=== PATIENT | male | born 1965 | race Caucasian/White ===

== ENCOUNTER 2019-09-04 11:26 | Inpatient (IN) | payer BC ==
--- NOTE | 2019-09-04 12:33 | ED ---
Psych HPI - General Chief Complaint: Psychiatric Symptoms Stated Complaint: mental health Time Seen by Provider: 09/04/19 11:45 Source: patient, RN notes reviewed Mode of arrival: ambulatory Limitations: no limitations - History of Present Illness Initial Comments: 54-year-old male presents emergency Department with chief complaint of depression, suicidal ideation. Patient had worsening depression with suicidal ideation today. Patient states that he has a rough homeless at this time. Patient cannot give me details. He denies use of alcohol or drug abuse. Patient denies any homicidal denies any physical complaints. - Related Data Home Medications Medication Instructions Recorded Confirmed Atorvastatin [Lipitor] 40 mg PO DAILY 09/06/16 09/04/19 Metoprolol Tartrate [Lopressor] 25 mg PO QAM 09/06/16 09/04/19 Insulin Degludec [Tresiba 32 units SQ DAILY 09/04/19 09/04/19 Flextouch U-200] Tadalafil [Cialis] 20 mg PO DIRECTED 09/04/19 09/04/19 Allergies Allergy/AdvReac Type Severity Reaction Status Date / Time No Known Allergies Allergy Verified 09/04/19 12:35 Review of Systems ROS Statement: Those systems with pertinent positive or pertinent negative responses have been documented in the HPI. ROS Other: All systems not noted in ROS Statement are negative. Past Medical History Past Medical History: Coronary Artery Disease (CAD), Diabetes Mellitus, Hyperlipidemia History of Any Multi-Drug Resistant Organisms: None Reported Past Surgical History: Appendectomy, Cholecystectomy, Coronary Bypass/CABG, Orthopedic Surgery, Tonsillectomy Additional Past Surgical History / Comment(s): Bilateral knee replaced 1989, CABG 2013. Past Anesthesia/Blood Transfusion Reactions: No Reported Reaction Past Psychological History: No Psychological Hx Reported Smoking Status: Former smoker Past Alcohol Use History: Occasional Past Drug Use History: None Reported General Exam Limitations: no limitations General appearance: alert, in no apparent distress Head exam: Present: atraumatic, normocephalic, normal inspection Eye exam: Present: normal appearance, PERRL, EOMI. Absent: scleral icterus, conjunctival injection, periorbital swelling ENT exam: Present: normal exam, normal oropharynx, mucous membranes moist, TM's normal bilaterally Neck exam: Present: normal inspection, full ROM. Absent: tenderness, meningismus, lymphadenopathy Respiratory exam: Present: normal lung sounds bilaterally. Absent: respiratory distress, wheezes, rales, rhonchi, stridor Cardiovascular Exam: Present: regular rate, normal rhythm, normal heart sounds. Absent: systolic murmur, diastolic murmur, rubs, gallop, clicks Neurological exam: Present: alert, oriented X3 Psychiatric exam: Present: depressed, other (Patient is tearful) Skin exam: Present: warm, dry, intact, normal color. Absent: rash Course Vital Signs 09/04/19 11:32 Temperature 98 F Pulse Rate 91 Respiratory 18 Rate Blood Pressure 195/90 O2 Sat by Pulse 96 Oximetry Medical Decision Making - Medical Decision Making Patient evaluated by EPS, case discussed with psychiatrist recommends inpatient treatment. Disposition Clinical Impression: Depression, Suicidal ideation Disposition: ADMITTED IP TO THIS HOSP Condition: Stable Referrals: Marguerite Figueroa MD [Primary Care Provider] - 1-2 days
[2019-09-04] MEDS ORDERED: MAG HYDROX/AL HYDROX/SIMETH 30 ML CUP PO PRN (13:56)
[2019-09-04] MEDS ORDERED: ACETAMINOPHEN TAB 325 MG TAB PO PRN (13:56)
[2019-09-04] MEDS ORDERED: LORazepam 1 MG TAB PO PRN (13:56)
[2019-09-04] MEDS ORDERED: MAGNESIUM HYDROXIDE 2,400 MG/10 ML CUP PO PRN (13:56)
[2019-09-04] MEDS ORDERED: LORazepam 2 MG/ML INJ IM PRN (13:59)
[2019-09-04 16:00] LABS: Glucose,Whole Blood 161 mg/dL (75-99)
--- NOTE | 2019-09-04 16:26 | CONS ---
CONSULTATION DATE OF SERVICE: 09/04/2019 REASON FOR CONSULTATION: Advice regarding diabetes and other medical issues requested by Psych. HISTORY OF PRESENT ILLNESS: This 54-year-old gentleman with a past medical history of CAD, diabetes, hyperlipidemia, history of CAD, CABG being followed by Dr. Figueroa in the outpatient setting, admitted for psychiatric evaluation. There is no history of fever, rigors or chills. No history of headache, loss of consciousness or seizures. No chest pain. No palpitations. No shortness of breath, hematochezia or melena at this time. PAST MEDICAL HISTORY: History of CAD, diabetes, hyperlipidemia, appendectomy, CAD, CABG, cholecystectomy. MEDICATIONS: Home medications: 1. Cialis 20 mg p.r.n. 2. Lopressor 25 mg q.a.m. 3. Tresiba 32 units subcu daily. 4. Lipitor 40 mg daily. ALLERGIES: None. FAMILY HISTORY: No history of heart disease or strokes in the family. SOCIAL HISTORY: Occasional alcohol intake. Previous history of smoking. REVIEW OF SYSTEMS: ENT: No diminished vision. No diminished hearing. CARDIOVASCULAR as mentioned earlier. RESPIRATORY: No cough, hemoptysis. GI no nausea or vomiting. no dysuria. No hematuria. CENTRAL NERVOUS SYSTEM: No numbness or weakness. ALLERGY/IMMUNOLOGY: No asthma or hayfever. MUSCULOSKELETAL as mentioned earlier. HEMATOLOGY/ONCOLOGY: No history of anemia. ENDOCRINE: No history of diabetes or hypothyroidism. CONSTITUTIONAL: As mentioned earlier. DERMATOLOGY: Negative. RHEUMATOLOGY negative. PSYCHIATRY as mentioned earlier. PHYSICAL EXAMINATION: Alert and oriented times three. Pulse 71, blood pressure 158/86, respiration 18, temperature 97.4, pulse ox 91 percent on room air. HEENT conjunctivae normal. NECK: No JVD. CARDIOVASCULAR: S1, S2 muffled. RESPIRATORY: Breath sounds diminished in the bases. No rhonchi. No crackles. ABDOMEN: Soft, nontender, obese. LEGS: No edema. No swelling. NERVOUS SYSTEM: Higher functions as mentioned earlier. Cranial nerves 2 through 12 grossly intact. Eye movements are full in all directions. No nystagmus. No diplopia. No facial deviation. Jaw opens midline. Otherwise, moves all 4 limbs. No focal motor deficits. Gait is normal. There is no sensory deficit. SKIN: No ulcer, rash or bleeding. JOINTS: No active deforming arthropathy. LYMPHATICS: No lymph nodes palpable in the neck, axillae or groin. LAB: Pending at this time. ASSESSMENT: 1. Depression with suicidal ideation. 2. Diabetes type 2. 3. History of coronary artery disease, coronary artery bypass grafting. 4. Hyperlipidemia. 5. History of cholecystectomy. 6. History appendectomy. 7. History of degenerative joint disease. 8. History of bilateral knee replacements. 9. Remote history of nicotine dependence. 10.Obesity with body mass of 32.5. 11.FULL CODE. RECOMMENDATIONS AND DISCUSSION: In this 54-year-old gentleman who presented with multiple medical issues, at this time, I recommend to continue the current medications. Resume the home medications. Otherwise, monitor blood sugars closely. I would recommend Accu-Cheks a.c. and at bedtime and scale also. We will follow the patient closely. If there are any abnormal labs, I will be happy to review. Otherwise, the patient may be asked to follow up with Dr. Figueroa closely after discharge. Thank you Dr. Teran for letting us participate in the care this patient. MMMARGARETL / IJN: [id number] /
[2019-09-04 17:42] LABS: Glucose,Whole Blood 186 mg/dL (75-99)
[2019-09-04] MEDS: INSULIN ASPART (NovoLOG) 100 UNIT/ML VIAL SQ SCH ×2 (18:02→19:55)
[2019-09-04 19:37] LABS: Glucose,Whole Blood 269 mg/dL (75-99)
[2019-09-05] MEDS ORDERED: INSULIN DETEMIR (LEVEMIR) 100 UNIT/ML SYR SQ SCH (07:00)
[2019-09-05 07:42] LABS: Glucose,Whole Blood 181 mg/dL (75-99)
[2019-09-05] MEDS: INSULIN ASPART (NovoLOG) 100 UNIT/ML VIAL SQ SCH ×4 (07:49→21:16)
[2019-09-05] MEDS: METOPROLOL TARTRATE 25 MG TAB PO SCH (08:13)
[2019-09-05] MEDS: ATORVASTATIN 40 MG TAB PO SCH (08:13)
[2019-09-05 12:28] LABS: ALT 41 U/L (21-72); AST 21 U/L (17-59); African American GFR (CKD) >90 (>60 ml/min/1.73 sqM); Albumin 4.3 g/dL (3.5-5.0); Alkaline Phosphatase 49 U/L (38-126); Anion Gap 6 mmol/L; Blood Urea Nitrogen 20 mg/dL (9-20); Calcium 10.1 mg/dL (8.4-10.2); Carbon Dioxide 30 mmol/L (22-30); Chloride 102 mmol/L (98-107); Cholesterol 268 mg/dL (<200); Glucose 190 mg/dL (74-99); HDL Cholesterol 47 mg/dL (40-60); LDL Cholesterol,Calculated 163 mg/dL (0-99); Non-African American GFR(CKD) 78 (>60 ml/min/1.73 sqM); Potassium 4.4 mmol/L (3.5-5.1); Sodium 138 mmol/L (137-145); Total Bilirubin 0.8 mg/dL (0.2-1.3); Triglycerides 288 mg/dL (<150)
[2019-09-05 12:40] LABS: Basophils % (A) 1 %; Eosinophils # (A) 0.2 k/uL (0-0.7); Eosinophils % (A) 3 %; HCT 41.9 % (39.0-53.0); HGB 14.6 gm/dL (13.0-17.5); Lymphocytes # (A) 2.3 k/uL (1.0-4.8); Lymphocytes % (A) 32 %; MCH 30.7 pg (25.0-35.0); MCHC 34.9 g/dL (31.0-37.0); MCV 87.9 fL (80.0-100.0); Mean Platelet Volume 5.9; Monocytes # (A) 0.3 k/uL (0-1.0); Monocytes % (A) 5 %; Neutrophils # (A) 4.1 k/uL (1.3-7.7); Neutrophils % (A) 58 %; Platelet Count 257 k/uL (150-450); RBC 4.77 m/uL (4.30-5.90); WBC 7.1 k/uL (3.8-10.6)
--- NOTE | 2019-09-05 12:50 | P.HP ---
Psychiatric H&P - . H&P Date: 09/05/19 History & Physical: IDENTIFYING DATA: The patient is a 54-year-old. male who presented to the psychiatric unit voluntarily with complaints of increasing depression and suicidal ideation. HISTORY OF PRESENT ILLNESS: The patient presented to the emergency room with complaints of depression and suicidal ideation. He talked about experiencing his father telling him that he needs to "get help". He related that he has felt depressed for several months since the of his father in April but the depression is worsened since he has been laid off from work. His employment status and resultant financial problems have caused more conflict with his . He describes several symptoms of depression including feelings of hopelessness with thoughts of and dying. However, he denied suicide intent or plan. He described himself as a "light sleeper" and alleged that he has not noticed a major change in her sleep recently. He has more difficulty enjoying himself and feels less energetic than usual. He denied persistent feelings of guilt. Prior to presents emergency room he alleged that he "heard" his father telling him that he needs to get treatment. He talked about experiencing his father voice "in my mind" talking to him. He denied that this was an auditory experience consistent with a true auditory hallucination. The social group worker spoke with his . On Wednesday prior to admission she learned that he was having an extramarital affair. Apparently this affair has been ongoing for about one year. She confronted him and they had a major argument. He complained of feelings of anxiety but denied that the anxiety has been persistent and disabling. He denied experiencing panic attack, perceptions or compulsions. He denied specific psychotic experiences as visual or tactile hallucinations, ideas reference, thought insertion, etc. He drinks "occasionally" and denied that friends or family have complained him about his alcohol use. He denied use of drugs to get high, help him sleep or changes mood. PAST PSYCHIATRIC HISTORY: He denied prior mental health or psychiatric treatment. This is his first psychiatric hospitalization. PAST MEDICAL HISTORY: Medical consult appreciated. He has a history of coronary artery disease, diabetes mellitus, hyperlipidemia and is status post's coronary artery bypass surgery. He is prescribed Lopressor, Tresiba and Lipitor for the treatment of these conditions. ALLERGIES: NO KNOWN DRUG ALLERGIES. SUBSTANCE USE HISTORY: 90 history of alcohol or drug use problems or treatment. FAMILY PSYCHIATRIC/SUBSTANCE USE HISTORY: He is unaware of family history of m ental health problems. LEGAL HISTORY: He denied history of legal problems. SOCIAL HISTORY: His born and raised in intact family. He graduated from high school. 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 He is been 3 times. He is to his current for 20 years. He has 3 biological sons and 2 stepsons. 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 MENTAL STATUS EXAM: He presented as a casually groomed middle-aged male who was pleasant on approach. He made eye contact and attended to interview. He had no distinguishing features or prominent physical abnormalities. He had a depressed facial expression. He was alert and oriented to person, place and time. He showed psychomotor retardation but no abnormal movements. His speech was slow with decreased rate and rhythm. He had no articulation difficulties. Affect was depressed and not reactive. He described wishes but denied active suicidal ideation, intent or plan. He denied homicidal ideation. He expressed feelings of hopelessness, helplessness and worthlessness. He did not express ideas reference, paranoid ideation, magical ideation or delusional thoughts. His thinking was abstract and associations were coherent, logical and goal directed. He did not express clang associations, perseverations, neologisms or blocking. He described hearing a "voice" his father but his description was not consistent ritual auditory hallucinations. Global impression of intellect is average. He is aware of his illness and need for mental health treatment. STRENGTHS: Relatively good health, stable employment, stable income, stable housing. WEAKNESSES: Marital problems. IMPRESSION: He is a 54-year-old male who presents with signs and symptoms of depressive disorder but has developed since deficits father in April and worsening recently related to marital difficulties. He attributes to marital difficulties to financial problems but social group worker discovered that he has been unfaithful in the marriage. He described hearing the voice of his father but his description did not appear consistent with a true auditory hallucination. He should best be treated inpatient basis with combination of antidepressant medication and multimodal therapy. He will benefit from referral for outpatient treatment that may include marital counseling.. PRINCIPLE DIAGNOSIS: Major depressive disorder single episode severe without psychotic features, marital problems, financial problems RECOMMENDATION: Add to the psychiatric unit. Safety precautions. granite worker to work with family to remove firearms from the household. Begin Zoloft 50 mg daily and titrated according to clinical response and tolerance. Encourage participation in therapeutic groups and activities. Evaluate clinical status response to treatment daily basis. Allergies Allergy/AdvReac Type Severity Reaction Status Date / Time No Known Allergies Allergy Verified 09/04/19 15:35 Vital Signs Temp 97.8 F 09/05/19 06:57 Pulse 75 09/05/19 08:00 Resp 16 09/05/19 08:00 BP 81/51 09/05/19 08:00 Pulse Ox 96 09/05/19 06:57 Intake & Output 09/04/19 09/05/19 09/05/19 18:59 06:59 18:59 Weight 99.79 kg Laboratory Last Values POC Glucose (mg/dL) 181 mg/dL (75-99) H 09/05/19 07:32 POC Glu Stabilizer Operator ID Ramona Portillo 09/05/19 07:32 09/05/19 10:38 09/05/19 12:47
[2019-09-05 12:54] LABS: Glucose,Whole Blood 189 mg/dL (75-99)
[2019-09-05] MEDS: SERTRALINE 50 MG TAB PO SCH (13:28)
[2019-09-05 17:40] LABS: Glucose,Whole Blood 183 mg/dL (75-99)
[2019-09-05 18:52] LABS: Hemoglobin A1C 8.7 % (4.0-6.0)
[2019-09-05 19:56] LABS: Glucose,Whole Blood 271 mg/dL (75-99)
[2019-09-06 07:55] LABS: Glucose,Whole Blood 181 mg/dL (75-99)
[2019-09-06] MEDS: ATORVASTATIN 40 MG TAB PO SCH (08:11)
[2019-09-06] MEDS: INSULIN ASPART (NovoLOG) 100 UNIT/ML VIAL SQ SCH ×4 (08:11→20:28)
[2019-09-06] MEDS: INSULIN DETEMIR (LEVEMIR) 100 UNIT/ML SYR SQ SCH (08:11)
[2019-09-06] MEDS: METOPROLOL TARTRATE 25 MG TAB PO SCH (08:12)
[2019-09-06] MEDS: SERTRALINE 50 MG TAB PO SCH (08:12)
[2019-09-06 12:49] LABS: Glucose,Whole Blood 190 mg/dL (75-99)
--- NOTE | 2019-09-06 12:59 | P.PN ---
Progress Note - Text Progress Note Date: 09/06/19 Clinical Problems: Major depressive disorder single episode severe without psychotic features, marital problems, financial problems Interim history: I reviewed the medical record, interviewed the patient and discuss his treatment and treatment plan during team meeting. He reported feeling less depressed and denied experiencing thoughts of suicide or wishes. He again talked about "bottling up" his feelings and needing to have the opportunity to talk about his concerns. He feels that he has this opportunity during our therapeutic groups and activities. I broached the complaint that his reported to the social work therapist. He denied that he was having an extramarital affair. He alleged that his misinterpreted his actions. He admitted to "text in" another woman but denied that they are involved sexually. He requested discharge before the holidays. We discussed aftercare and he agreed to referral for individual and possibly conjoined therapy. He started Zoloft but denied side effects to the initial doses. Mental status exam: He presented as a casually groomed and casually dressed middle-aged male with male pattern balding. He made eye contact and attended to the interview. He showed slight psychomotor retardation but no abnormal movements. His speech was spontaneous with decreased rate and volume. His affect was depressed but reactive. He denied suicidal ideation, wishes and homicidal ideation. He denied currently feeling hopeless and helpless or worthless. He did not express paranoid ideation, magical ideation or delusional thoughts. His thinking was abstract and associations were coherent, logical and goal directed. He denied hallucinations and did not appear to be responding to internal stimuli. Assessment: He continued have signs or symptoms depressive disorder but is no longer expressing suicidal thoughts. Plan: Continue inpatient hospitalization. Continue suicide precautions. dry drug worker to arrange a family meeting prior to discharge. Continue Zoloft 50 mg per day and titrated according to clinical response and tolerance. Plan for discharge on 09/07/2019. dry drug worker to coordinate aftercare services including individual therapy and possible conjoint and/or marital therapy. Encouraged continued participation in therapeutic groups and activities. Evaluate clinical status response to treatment daily basis.
[2019-09-06 17:08] LABS: Glucose,Whole Blood 238 mg/dL (75-99)
[2019-09-06 20:27] LABS: Glucose,Whole Blood 254 mg/dL (75-99)
[2019-09-07 07:09] VITALS: BP 130/69; PULSE 69; RESP 14; TEMP 97.9
[2019-09-07 07:35] LABS: Glucose,Whole Blood 214 mg/dL (75-99)
[2019-09-07] MEDS: SERTRALINE 50 MG TAB PO SCH (07:56)
[2019-09-07] MEDS: INSULIN ASPART (NovoLOG) 100 UNIT/ML VIAL SQ SCH (07:56)
[2019-09-07] MEDS: METOPROLOL TARTRATE 25 MG TAB PO SCH (07:56)
[2019-09-07] MEDS: INSULIN DETEMIR (LEVEMIR) 100 UNIT/ML SYR SQ SCH (07:56)
[2019-09-07] MEDS: ATORVASTATIN 40 MG TAB PO SCH (07:56)
--- NOTE | 2019-09-07 08:41 | P.DS ---
Providers Date of admission: 09/04/19 13:47 Attending physician: Samson Teran MD Consults: 09/04/19 13:56 Consult Physician Routine Consulting Provider: Kristopher Beatty Consult Reason/Comments: H&P and medical Do you want consulting provider notified?: Yes Primary care physician: Marguerite Figueroa - Discharge Diagnosis(es) (1) Marital problems Current Visit: Yes Status: Acute Priority: High (2) Financial problems Current Visit: Yes Status: Acute Priority: Medium (3) Depression Current Visit: Yes Status: Chronic Priority: Low (4) Suicidal ideation Current Visit: Yes Status: Resolved Priority: Low Hospital Course: The patient is a 54-year-old. male who presented to the psychiatric unit voluntarily with complaints of increasing depression and suicidal ideation. The patient presented to the emergency room with complaints of depression and suicidal ideation. He talked about experiencing his father telling him that he needs to "get help". He related that he has felt depressed for several months since the of his father in April but the depression is worsened since he has been laid off from work. His employment status and resultant financial problems have caused more conflict with his . He describes several symptoms of depression including feelings of hopelessness with thoughts of and dying. However, he denied suicide intent or plan. He described himself as a "light sleeper" and alleged that he has not noticed a major change in her sleep recently. He has more difficulty enjoying himself and feels less energetic than usual. He denied persistent feelings of guilt. Prior to presents emergency room he alleged that he "heard" his father telling him that he needs to get treatment. He talked about experiencing his father voice "in my mind" talking to him. He denied that this was an auditory experience consistent with a true auditory hallucination. The drug abuse social worker spoke with his . On Wednesday prior to admission she learned that he was having an extramarital affair. Apparently this affair has been ongoing for about one year. She confronted him and they had a major argument. He complained of feelings of anxiety but denied that the anxiety has been persistent and disabling. He denied experiencing panic attack, perceptions or compulsions. He denied specific psychotic experiences as visual or tactile hallucinations, ideas reference, thought insertion, etc. He drinks "occasionally" and denied that friends or family have complained him about his alcohol use. He denied use of drugs to get high, help him sleep or changes mood. We admitted him to the psychiatric unit under the care of this sql report writer. We provided a biopsychosocial assessment. The eligibility consultant movers completed initial physical exam and medical history. We continued his outpatient medications, Lipitor, Levemir and Lopressor for the treatment of his chronic conditions of hypercholesterol, diabetes and hypertension. We started sertraline 50 mg daily for the treatment of depression. He participated actively in therapeutic groups and activities. He posed no management problem and is had no episodes of behavioral dyscontrol. He denied suicidal thoughts, ideation or intent throughout this brief hospitalization. He denied his 's allegation that he was involved in extramarital affair. He alleged that his misinterpreted the text conversation with a female coworker and doctor's appointment where he obtained a prescription for Cialis. We discussed treatment options and he agreed to referral for individual and/or marital therapy. At time of discharge he presented as a casually groomed middle-aged male with pattern balding. He had no distinction features are prominent physical abnormalities. He had a blunted but bright facial expression. He showed no abnormality of psychomotor activity. His speech was spontaneous with slight decrease in volume and rate. His affect was depressed but stable and appropriate. He denied suicidal ideation, wishes or homicidal ideation. He denied feeling hopeless, helpless or worthless. He denied ideas reference, paranoid ideation or delusions. His thinking was abstract and associations were coherent and logical. Patient Condition at Discharge: Stable Plan - Discharge Summary Discharge Rx Participant: No New Discharge Prescriptions: New Sertraline [Zoloft] 50 mg PO DAILY 30 Days #30 tab Continue Atorvastatin [Lipitor] 40 mg PO DAILY Metoprolol Tartrate [Lopressor] 25 mg PO QAM Tadalafil [Cialis] 20 mg PO DIRECTED Insulin Degludec [Tresiba Flextouch U-200] 32 units SQ DAILY Discharge Medication List Atorvastatin [Lipitor] 40 mg PO DAILY 09/06/16 [History] Metoprolol Tartrate [Lopressor] 25 mg PO QAM 09/06/16 [History] Insulin Degludec [Tresiba Flextouch U-200] 32 units SQ DAILY 09/04/19 [History] Tadalafil [Cialis] 20 mg PO DIRECTED 09/04/19 [History] Sertraline [Zoloft] 50 mg PO DAILY 30 Days #30 tab 09/07/19 [Rx] Follow up Appointment(s)/Referral(s): intake,intake [Other] - 1 Week Marguerite Figueroa MD [Primary Care Provider] - 1-2 days Discharge Disposition: HOME SELF-CARE
== END 2019-09-07 10:30 | disposition home or self-care (01) | DRG 885 ==
LOC: EC 11:26 → 3MHU 13:47
PROVIDERS: ADMIT Psychiatry & Neurology Psychiatry; ATTEND Psychiatry & Neurology Psychiatry
DX: F32.2 Major depressive disorder, single episode, severe without psychotic features (principal); R45.851 Suicidal ideations; E11.9 Type 2 diabetes mellitus without complications; I25.10 Atherosclerotic heart disease of native coronary artery without angina pectoris; E78.00 Pure hypercholesterolemia, unspecified; E78.5 Hyperlipidemia, unspecified; I10 Essential (primary) hypertension; E66.9 Obesity, unspecified; Z68.32 Body mass index [BMI] 32.0-32.9, adult; Z79.4 Long term (current) use of insulin; Z79.899 Other long term (current) drug therapy; Z90.49 Acquired absence of other specified parts of digestive tract; Z63.0 Problems in relationship with spouse or partner; Z59.0 Homelessness; Z95.1 Presence of aortocoronary bypass graft; Z98.890 Other specified postprocedural states; Z96.653 Presence of artificial knee joint, bilateral; Z87.891 Personal history of nicotine dependence; Z87.39 Personal history of other diseases of the musculoskeletal system and connective tissue
CPT/HCPCS: 80053; 80061; 82075; 83036; 84443; 85025; 99285

== ENCOUNTER 2019-10-08 19:20 | Emergency (ER) | payer BC ==
[2019-10-08 19:30] VITALS: RESP 18
[2019-10-08 19:37] LABS: Glucose,Whole Blood 307 mg/dL (75-99)
[2019-10-08] MEDS ORDERED: SODIUM CHLORIDE 0.9% 1,000 ML IV STA ×2 (19:42→21:15)
[2019-10-08 20:01] LABS: INR 0.9 (<1.2); Partial Thromboplastin Time 23.4 sec (22.0-30.0); Prothrombin Time 9.5 sec (9.0-12.0)
[2019-10-08 20:02] LABS: Basophils # (A) 0.1 k/uL (0-0.2); Basophils % (A) 1 %; Eosinophils # (A) 0.2 k/uL (0-0.7); Eosinophils % (A) 3 %; HCT 40.1 % (39.0-53.0); HGB 14.3 gm/dL (13.0-17.5); Lymphocytes # (A) 2.3 k/uL (1.0-4.8); Lymphocytes % (A) 31 %; MCH 30.8 pg (25.0-35.0); MCHC 35.6 g/dL (31.0-37.0); MCV 86.5 fL (80.0-100.0); Mean Platelet Volume 7.1; Monocytes # (A) 0.4 k/uL (0-1.0); Monocytes % (A) 5 %; Neutrophils # (A) 4.3 k/uL (1.3-7.7); Neutrophils % (A) 58 %; Platelet Count 249 k/uL (150-450); RBC 4.63 m/uL (4.30-5.90); RDW 12.9 % (11.5-15.5); WBC 7.3 k/uL (3.8-10.6)
--- NOTE | 2019-10-08 20:05 | ED ---
Neuro HPI - General Chief Complaint: Neuro Symptoms/Deficit Stated Complaint: TIA Time Seen by Provider: 10/08/19 19:42 Source: patient, EMS, RN notes reviewed, old records reviewed Mode of arrival: EMS Limitations: no limitations - History of Present Illness Is the patient presenting with stroke symptoms?: No -: minutes(s) Initial Comments: This is a 54-year-old male here with history of CAD CABG coming in for neurologic type symptoms tonight. Patient states prior to arrival. Difficulty with word finding, difficulty with speech. No pressure stroke. Patient currently with no anticoagulation or trauma. No headaches. Patient taken all medications as prescribed menstrual alcohol abuse. Does admit to some persistent tingling in his fingers although he states his speech and thought processes are back to normal. Location: speech, altered History of same: No Place: home Severity: mild Quality: improving Improves With: time Worsens With: none On Anticoagulants: No Context: sudden onset Associated Symptoms: confusion Treatments Prior to Arrival: none - Related Data Home Medications: Home Medications Medication Instructions Recorded Confirmed Atorvastatin [Lipitor] 40 mg PO DAILY 09/06/16 09/04/19 Metoprolol Tartrate [Lopressor] 25 mg PO QAM 09/06/16 09/04/19 Insulin Degludec [Tresiba 32 units SQ DAILY 09/04/19 09/04/19 Flextouch U-200] Tadalafil [Cialis] 20 mg PO DIRECTED 09/04/19 09/04/19 Previous Rx's Medication Instructions Recorded Sertraline [Zoloft] 50 mg PO DAILY 30 Days #30 tab 09/07/19 Allergies/Adverse Reactions: Allergies Allergy/AdvReac Type Severity Reaction Status Date / Time No Known Allergies Allergy Verified 09/04/19 15:35 Review of Systems ROS Statement: Those systems with pertinent positive or pertinent negative responses have been documented in the HPI. ROS Other: All systems not noted in ROS Statement are negative. General Exam - General Exam Comments Initial Comments: NIH of 0, no slurred speech, no expressive aphasia Limitations: no limitations General appearance: alert, in no apparent distress Head exam: Present: atraumatic, normocephalic, normal inspection Eye exam: Present: normal appearance, PERRL, EOMI. Absent: scleral icterus, conjunctival injection, periorbital swelling ENT exam: Present: normal exam, mucous membranes moist Neck exam: Present: normal inspection. Absent: tenderness, meningismus, lymphadenopathy Respiratory exam: Present: normal lung sounds bilaterally. Absent: respiratory distress, wheezes, rales, rhonchi, stridor Cardiovascular Exam: Present: regular rate, normal rhythm, normal heart sounds. Absent: systolic murmur, diastolic murmur, rubs, gallop, clicks GI/Abdominal exam: Present: soft, normal bowel sounds. Absent: distended, tenderness, guarding, rebound, rigid Extremities exam: Present: normal inspection, full ROM, normal capillary refill. Absent: tenderness, pedal edema, joint swelling, calf tenderness Back exam: Present: normal inspection Neurological exam: Present: alert, oriented X3, CN II-XII intact Psychiatric exam: Present: normal affect, normal mood Skin exam: Present: warm, dry, intact, normal color. Absent: rash Stroke MDM - Lab Data Result diagrams: 10/08/19 19:36 10/08/19 19:36 Lab Results 10/08/19 10/08/19 10/08/19 Range/Units 19:36 19:36 19:36 WBC 7.3 (3.8-10.6) k/uL RBC 4.63 (4.30-5.90) m/uL Hgb 14.3 (13.0-17.5) gm/dL Hct 40.1 (39.0-53.0) % MCV 86.5 (80.0-100.0) fL MCH 30.8 (25.0-35.0) pg MCHC 35.6 (31.0-37.0) g/dL RDW 12.9 (11.5-15.5) % Plt Count 249 (150-450) k/uL Neutrophils % 58 % Lymphocytes % 31 % Monocytes % 5 % Eosinophils % 3 % Basophils % 1 % Neutrophils # 4.3 (1.3-7.7) k/uL Lymphocytes # 2.3 (1.0-4.8) k/uL Monocytes # 0.4 (0-1.0) k/uL Eosinophils # 0.2 (0-0.7) k/uL Basophils # 0.1 (0-0.2) k/uL PT (9.0-12.0) sec INR (<1.2) APTT (22.0-30.0) sec Sodium 136 L (137-145) mmol/L Potassium 4.5 (3.5-5.1) mmol/L Chloride 103 (98-107) mmol/L Carbon Dioxide 26 (22-30) mmol/L Anion Gap 7 mmol/L BUN 28 H (9-20) mg/dL Creatinine 1.09 (0.66-1.25) mg/dL Est GFR (CKD-EPI)AfAm 87 (>60 ml/min/1.73 sqM) Est GFR (CKD-EPI)NonAf 76 (>60 ml/min/1.73 sqM) Glucose 287 H (74-99) mg/dL POC Glucose (mg/dL) 307 H (75-99) mg/dL POC Glu Plastic Tile Setter Judy Cruz Calcium 9.3 (8.4-10.2) mg/dL Total Bilirubin 0.5 (0.2-1.3) mg/dL AST 21 (17-59) U/L ALT 26 (4-49) U/L Alkaline Phosphatase 69 (38-126) U/L Creatine Kinase 66 (55-170) U/L Troponin I (0.000-0.034) ng/mL Total Protein 6.8 (6.3-8.2) g/dL Albumin 4.0 (3.5-5.0) g/dL 10/08/19 10/08/19 Range/Units 19:36 19:36 WBC (3.8-10.6) k/uL RBC (4.30-5.90) m/uL Hgb (13.0-17.5) gm/dL Hct (39.0-53.0) % MCV (80.0-100.0) fL MCH (25.0-35.0) pg MCHC (31.0-37.0) g/dL RDW (11.5-15.5) % Plt Count (150-450) k/uL Neutrophils % % Lymphocytes % % Monocytes % % Eosinophils % % Basophils % % Neutrophils # (1.3-7.7) k/uL Lymphocytes # (1.0-4.8) k/uL Monocytes # (0-1.0) k/uL Eosinophils # (0-0.7) k/uL Basophils # (0-0.2) k/uL PT 9.5 (9.0-12.0) sec INR 0.9 (<1.2) APTT 23.4 (22.0-30.0) sec Sodium (137-145) mmol/L Potassium (3.5-5.1) mmol/L Chloride (98-107) mmol/L Carbon Dioxide (22-30) mmol/L Anion Gap mmol/L BUN (9-20) mg/dL Creatinine (0.66-1.25) mg/dL Est GFR (CKD-EPI)AfAm (>60 ml/min/1.73 sqM) Est GFR (CKD-EPI)NonAf (>60 ml/min/1.73 sqM) Glucose (74-99) mg/dL POC Glucose (mg/dL) (75-99) mg/dL POC Glu Plastic Tile Setter ID Calcium (8.4-10.2) mg/dL Total Bilirubin (0.2-1.3) mg/dL AST (17-59) U/L ALT (4-49) U/L Alkaline Phosphatase (38-126) U/L Creatine Kinase (55-170) U/L Troponin I <0.012 (0.000-0.034) ng/mL Total Protein (6.3-8.2) g/dL Albumin (3.5-5.0) g/dL - NIH Stroke Scale 1a. Level of Consciousness: (0) alert 1b. LOC Questions: (0) answers correctly 1c. LOC Commands: (0) performs tasks correctly 2. Best Gaze: (0) normal 3. Visual: (0) no visual loss 4. Facial Palsy: (0) normal symmetrical movement 5a. Motor Arm Left: (0) no drift 5b. Motor Arm Right: (0) no drift 6a. Motor Leg Left: (0) no drift 6b. Motor Leg Right: (0) no drift 7. Limb Ataxia: (0) absent 8. Sensory: (0) normal 9. Best Language: (0) no aphasia 10. Dysarthria: (0) normal 11. Extinction/Inattention: (0) no abnormality - Thrombolytic Inclusion/Exclusion Thrombolytic Inclusion Criteria: NIH Stroke Scale Deficit (0) Thrombolytic Contraindications: Rapidly Improving s/s - Medical Decision Making 54 male date ER with significant history of CAD coming in with TIA symptoms have currently resolved. Please undulate that therapy to follow up with vascular surgery, neurology, as all drywall professional instructed. Patient does not want to stay in the hospital at this time passivity could see him swallowing diffi culties consult from a cooker basis he'll return if neurologic symptoms return and patient would like discharged - Radiology Data Radiology results: report reviewed (CT brain states he had neck does show significant occlusion left internal carotid as well as 75% of right internal carotid), image reviewed - EKG Data -: EKG Interpreted by Me (EKG shows sinus rhythm rate of 71, NE 164, QRS 90, QTC 404) Past Medical History Past Medical History: Coronary Artery Disease (CAD), Diabetes Mellitus, Hyperlipidemia History of Any Multi-Drug Resistant Organisms: None Reported Past Surgical History: Appendectomy, Cholecystectomy, Coronary Bypass/CABG, Orthopedic Surgery, Tonsillectomy Additional Past Surgical History / Comment(s): Bilateral knee replaced 1989, CABG 2013. Past Anesthesia/Blood Transfusion Reactions: No Reported Reaction Past Psychological History: No Psychological Hx Reported Smoking Status: Former smoker Past Alcohol Use History: Occasional Past Drug Use History: None Reported Course Vital Signs 10/08/19 19:27 Temperature 98.1 F Pulse Rate 76 Respiratory 18 Rate Blood Pressure 134/77 O2 Sat by Pulse 97 Oximetry - Reevaluation(s) Reevaluation #1: 10/08/19 21:19 medical records reviewed Reevaluation #2: 10/08/19 21:20 Patient is without complaint without neurological findings Reevaluation #3: 10/08/19 21:20 Spoke with neuro interventional on-call Dr. Lei suggests dual antiplatelets. Reevaluation #4: 10/08/19 21:20 The patient at length follow-up with vascular surgery and patients drywall professional Disposition Clinical Impression: Transient cerebral ischemia Disposition: HOME SELF-CARE Condition: Undetermined Instructions (If sedation given, give patient instructions): Transient Ischemic Attack (ED) Is patient prescribed a controlled substance at d/c from ED?: No Referrals: Marguerite Figueroa MD [Primary Care Provider] - 1-2 days
[2019-10-08 20:11] LABS: Calcium 9.3 mg/dL (8.4-10.2); Potassium 4.5 mmol/L (3.5-5.1); Total Bilirubin 0.5 mg/dL (0.2-1.3); Total Protein 6.8 g/dL (6.3-8.2)
--- NOTE | 2019-10-08 20:15 | CT ---
EXAMINATION TYPE: CT brain wo con for TPA DATE OF EXAM: 10/08/2019 COMPARISON: None HISTORY: Slurred speech. CT DLP: 1130 mGycm Automated exposure control for dose reduction was used. There is mild cerebral atrophy. There is no mass effect nor midline shift. There is no sign of intrac ranial hemorrhage. Calvarium is intact. IMPRESSION: No acute intracranial abnormality.
--- NOTE | 2019-10-08 20:44 | CT ---
EXAMINATION TYPE: CT angio head neck DATE OF EXAM: 10/08/2019 COMPARISON: HISTORY: CT DLP: mGycm Automated exposure control for dose reduction was used. CONTRAST: Performed , patient injected with mL of . Contrast was Isovue 65 mL. There are 3-D post processed images. There is normal branching pattern of the great vessels on the aortic arch. There is bilateral arteria l flow in the subclavian arteries. There is arterial flow in the common internal and external carotid arteries bilaterally. There is subtotal occlusion of the origin of the left internal carotid artery. Stenosis is estimated more than 90%. There is extensive irregular plaque at the right carotid artery bifurcation and estimated stenosis 75%. There is arterial flow in both vertebral arteries which are fairly symmetric. I see no evidence of ve rtebral artery stenosis. There is arterial flow in the vertebrobasilar artery system. There is arterial flow in the anterior middle and posterior cerebral arteries. There is normal contra st opacification of the venous sinuses. There is no mass effect. There is no evidence of intracranial aneurysm or neovascularity. I see no evidence of intracranial arterial stenosis. The remainder of ex am is unremarkable. IMPRESSION: Subtotal occlusion of the origin of the left internal carotid artery. Approximate 75% stenosis at the origin of the right internal carotid artery. Extensive plaque formation at the carotid artery bifurc ations.
[2019-10-08] MEDS ORDERED: CLOPIDOGREL 75 MG TAB PO STA (21:17)
[2019-10-08] MEDS ORDERED: ASPIRIN 81 MG PO STA (21:17)
[2019-10-08 22:02] VITALS: BP 116/67; PULSE 72; TEMP 97.9
== END 2019-10-08 22:02 | disposition home or self-care (01) ==
LOC: EC 19:20
DX: G45.9 Transient cerebral ischemic attack, unspecified (principal); I25.10 Atherosclerotic heart disease of native coronary artery without angina pectoris; E11.9 Type 2 diabetes mellitus without complications; E78.5 Hyperlipidemia, unspecified; Z87.891 Personal history of nicotine dependence; Z79.4 Long term (current) use of insulin; Z79.899 Other long term (current) drug therapy; Z95.1 Presence of aortocoronary bypass graft; Z53.8 Procedure and treatment not carried out for other reasons
CPT/HCPCS: 99285; 96360; 36415; 93005; 80053; 82550; 84484; 85025; 85610; 85730; 70496; 70450; 70498; Q9967

== ENCOUNTER → 2019-10-30 | Outpatient (CLI) | payer BC ==
[2019-10-30 11:27] LABS: African American GFR (CKD) >90 (>60 ml/min/1.73 sqM); Blood Urea Nitrogen 23 mg/dL (9-20); Non-African American GFR(CKD) 79 (>60 ml/min/1.73 sqM); Potassium 4.6 mmol/L (3.5-5.1)
[2019-10-30 12:25] LABS: HCT 41.1 % (39.0-53.0); HGB 14.3 gm/dL (13.0-17.5); MCH 30.9 pg (25.0-35.0); MCHC 34.7 g/dL (31.0-37.0); Mean Platelet Volume 7.5; Platelet Count 220 k/uL (150-450); RBC 4.62 m/uL (4.30-5.90); RDW 13.5 % (11.5-15.5); WBC 6.3 k/uL (3.8-10.6)
== END | disposition home or self-care (01) ==
LOC: LABPAT 10:53
PROVIDERS: ATTEND Surgery
DX: Z01.812 Encounter for preprocedural laboratory examination (principal); I65.23 Occlusion and stenosis of bilateral carotid arteries
CPT/HCPCS: 82565; 84132; 84520; 85027; 86850; 86900; 86901

== ENCOUNTER 2019-10-31 05:53 | Inpatient (IN) | payer BC ==
[2019-10-27 17:23] VITALS: BMI 32.0
[~2019-10-31 05:53] MED LIST: DEXAMETHASONE SOD PHOSPHATE 10 MG/ML 1 ML VIAL IV ONE; HYDROmorphone 0.5 MG/0.5 ML SYRINGE IVP PRN; LACTATED RINGERS 1,000 ML IV SCH; LIDOCAINE 1% 20 ML VIAL (10MG/ML) FOR IV START INTRADERMA PRN; MIDAZOLAM 2 MG/2 ML VIAL IV PRN; ONDANSETRON 4 MG/2 ML VIAL IVP ONE; SCOPOLAMINE 1.5MG/72HR PATCH TRANSDERM ONE
[2019-10-31 06:42] LABS: Glucose,Whole Blood 225 mg/dL (75-99)
[2019-10-31] MEDS ORDERED: INSULIN ASPART (NovoLOG) 100 UNIT/ML VIAL SQ ONE (06:56)
[2019-10-31] MEDS ORDERED: ACETAMINOPHEN TAB 500 MG TAB PO ONE (07:07)
--- NOTE | 2019-10-31 07:14 | P.GSHP ---
History of Present Illness H&P Date: 10/31/19 Chief Complaint: Carotid stenosis 54-year-old gentleman with history of recent TIA with aphasia and was diagnosed with subtotal occlusion severe stenosis of the left internal carotid artery presented originally to the office for evaluation and possible scheduling of surgical intervention. He presents today for left carotid endarterectomy with patch angioplasty. Currently he denies any lateralizing symptoms such as weakness, vision changes or speech issues. He denies any fevers, chills, chest pain or shortness of breath. - Review of Systems All systems: negative (Unless mentioned in the HPI or past medical history) Past Medical History Past Medical History: Coronary Artery Disease (CAD), CVA/TIA, Diabetes Mellitus, Hyperlipidemia Additional Past Medical History / Comment(s): TIA 10/08/19. Carotid stenosis. Edema legs when on feet for extended time. History of Any Multi-Drug Resistant Organisms: None Reported Past Surgical History: Appendectomy, Cholecystectomy, Coronary Bypass/CABG, Heart Catheterization, Orthopedic Surgery, Tonsillectomy Additional Past Surgical History / Comment(s): Bilateral knee surg 1989, Triple CABG 2013. Past Anesthesia/Blood Transfusion Reactions: No Reported Reaction Smoking Status: Former smoker - Past Family History Father Family Medical History: Cancer Additional Family Medical History / Comment(s): skin CA Medications and Allergies Home Medications Medication Instructions Recorded Confirmed Type Atorvastatin [Lipitor] 40 mg PO DAILY 09/06/16 10/27/19 History Insulin Degludec [Tresiba 34 units SQ AC-BRKFST 09/04/19 10/31/19 History Flextouch U-200] Tadalafil [Cialis] 20 mg PO DIRECTED 09/04/19 10/31/19 History Clopidogrel Bisulfate [Plavix] 75 mg PO DAILY #30 tab 10/08/19 10/27/19 Rx Aspirin 81 mg PO DAILY 10/27/19 10/27/19 History Empagliflozin [Jardiance] 25 mg PO DAILY 10/27/19 10/27/19 History Lisinopril [Zestril] 5 mg PO DAILY 10/27/19 10/27/19 History Metoprolol Succinate (ER) [Toprol 25 mg PO DAILY 10/27/19 10/27/19 History Xl] Allergies Allergy/AdvReac Type Severity Reaction Status Date / Time No Known Allergies Allergy Verified 10/31/19 06:10 Surgical - Exam Vital Signs Temp Pulse Resp BP Pulse Ox 98 F 61 16 138/65 97 10/31/19 06:15 10/31/19 06:15 10/31/19 06:15 10/31/19 06:15 10/31/19 06:15 - General well developed, well nourished, no distress - Eyes PERRL, normal ocular movement - ENT normal pinna, normal nares - Neck no masses - Respiratory normal expansion - Cardiovascular Rhythm: regular - Abdomen Abdomen: soft, non tender - Integumentary no rash - Neurologic normal coordination, normal sensation - Musculoskeletal normal gait - Psychiatric oriented to time, oriented to person, oriented to place, speech is normal Results - Labs Abnormal Lab Results - Last 24 Hours (Table) 10/31/19 Range/Units 06:23 POC Glucose (mg/dL) 225 H (75-99) mg/dL Assessment and Plan Assessment: #1 left internal carotid artery severe stenosis greater than 90% #2 recent TIA with aphasia #3 coronary artery disease #4 diabetes Plan: To the OR for left carotid endarterectomy with patch angioplasty. Discussion was had with the patient including all risks, benefits and complications of the procedure. We also discussed pain management with Tylenol and Motrin in accordance to the pain control optimization pathway by the [place] opioid prescribing engagement network. He was given oral Tylenol in the preop and will be maintained postoperatively with Tylenol and Motrin. He expressed full understanding of the procedure, risks and postoperative pain control plan.
[2019-10-31] MEDS ORDERED: PHENYLEPHRINE-0.9% NACL SYG 1 MG/10 ML SYRINGE ONE (07:25)
[2019-10-31] MEDS ORDERED: MIDAZOLAM 2 MG/2 ML VIAL ONE (07:25)
[2019-10-31] MEDS ORDERED: HEPARIN SODIUM,PORCINE 10,000 UNIT/ML 1 ML VIAL ONE (07:25)
[2019-10-31] MEDS ORDERED: fentaNYL (PF) 50 MCG/ML 2 ML AMP ONE (07:25)
[2019-10-31] MEDS ORDERED: SUCCINYLCHOLINE CHLORIDE 100 MG/5 ML SYR IV ONE (07:25)
[2019-10-31] MEDS ORDERED: PROTAMINE SULFATE 10 MG/ML 5 ML VIAL IV ONE (07:25)
[2019-10-31] MEDS ORDERED: ROCURONIUM BROMIDE 10 MG/ML 10 ML VIAL IV ONE (07:25)
[2019-10-31] MEDS ORDERED: ePHEDrine SULFATE/0.9% NACL/PF 50 MG/5 ML SYRINGE IV ONE (07:25)
[2019-10-31] MEDS ORDERED: NEOSTIGMINE 1 MG/ML 10 ML VIAL ONE (07:25)
[2019-10-31] MEDS ORDERED: GLYCOPYRROLATE 0.2 MG/ML 2 ML VIAL ONE (07:25)
[2019-10-31] MEDS ORDERED: PROPOFOL 10 MG/ML 20 ML VIAL IV ONE (07:25)
[2019-10-31] MEDS ORDERED: LACTATED RINGERS 1,000 ML IV ONE (07:47)
[2019-10-31] MEDS ORDERED: LIDOCAINE 1% INJ 10MG/ML (20 ML MDV) SQ ONE (08:29)
[2019-10-31] MEDS ORDERED: ceFAZolin 2 GM, BACITRACIN 100,000 UNIT in SODIUM CHLORIDE 0.9% 500 ML 500 ML IRRIGATION ONE (08:31)
[2019-10-31] MEDS ORDERED: HEPARIN SODIUM (1,000 UNIT/ML) 2,000 UNIT in SODIUM CHLORIDE 0.9% 1,000 ML IRRIGATION ONE (08:33)
[2019-10-31] MEDS ORDERED: MAG HYDROX/AL HYDROX/SIMETH 30 ML CUP PO PRN (10:01)
[2019-10-31] MEDS ORDERED: TRIMETHOBENZAMIDE 100 MG/ML 2 ML VIAL IM PRN (10:01)
[2019-10-31] MEDS ORDERED: BENZOCAINE/MENTHOL LOZENG 1 EACH LOZENGE MUCOUS MEM PRN (10:01)
--- NOTE | 2019-10-31 10:01 | P.OP ---
Description of Procedure: Date of Procedure: 10/31/2019 Preoperative Diagnosis: Left Internal carotid artery stenosis, recent TIA Postoperative Diagnosis: Same Procedure(s) Performed: Left carotid endarterectomy with patch angioplasty Anesthesia: CHIDI Surgeon: Simba Casillas Estimated Blood Loss (ml): 150 IV Fluids: 1 L Urine Output: 600 mL Pathology: Left carotid plaque Condition: stable Disposition: PACU Indications for Procedure: 54-year-old gentleman who originally presented to the emergency department with complaints of aphasia was diagnosed with a TIA and on CT angiogram was shown to have a subtotal occlusion of his left internal carotid artery. Carotid duplex also demonstrated severe stenosis with greater than 80- 90% stenosis of the left internal carotid artery. He presents today for left internal carotid artery endarterectomy with patch angioplasty. Description of Procedure: After written informed consent was obtained the patient all risks benefits and competitions were described the patient is brought to the operative suite and laid in a supine position. The area of the neck was prepped and draped in usual sterile fashion after appropriate anesthetic was performed per the anesthesiologist. A timeout was performed in normal fashion antibiotics were administered prior to incision. An oblique incision was then created just anterior to the sternocleidomastoid musculature with a 10 blade scalpel and dissection was carried down to the carotid sheath. The carotid sheath was then entered after facial vein was located and suture ligated in normal fashion. Attention was then placed to the vagus nerve which was overlying the carotid artery and required meticulous dissection to manipulate the nerve laterally. The hypoglossal nerve was also visualized and spared. The common carotid, internal carotid, external carotid and superior thyroid arteries were located and dissected free in a meticulous fashion circumferentially and controlled with vessel loops. Once controlled patient was administered heparin and followed with ACTs for appropriate heparinization. Once ACT was above 200 the proximal and distal aspects of the dissection were then controlled with vascular clamps. Arteriotomy was then created with 11 blade scalpel and extended with Wiggins Dooley scissors. Utilizing pressure tubing stump pressures were obtained and were diminished as well as backbleeding was not brisk and therefore a Sundt shunt was utilized. Shunt was placed in normal fashion and endarterectomy was then performed with a [place] and elevator. The plaque was then feathered at the distal aspect and the internal carotid artery and removed. The area was copiously irrigated with heparinized saline and all free debris was removed. A 7-0 Prolene suture was then placed to tack the distal aspect of the dissection at the internal carotid artery. A 0.8 x 8 cm bovine pericardial patch was then chosen and patch angioplasty was performed with 6-0 Prolene suture in a running fashion. Prior to last sutures being placed the shunt was removed and backbleeding was flushed as well as forward flush out of the patch to remove any free debris. The vessels were then reclamped prior to final sutures being placed. The external carotid and superior thyroid artery were then released followed by the common carotid artery to allow any free debris to be flushed into the external system. Final sutures were placed and secured. Internal carotid artery control was then released. Good pulsatile flow was noted through the patch and a Doppler was utilized demonstrating good brisk flow into the internal, external carotid arteries without any signs of obstruction. Hemostasis was then assured with Surgicel snow. A 10-Kinyarwanda CLARY drain was then placed in normal fashion and secured with 3-0 nylon suture. The incision was then closed in a multilayer fashion after hemostasis was assured. The skin was then cleansed and dressings were placed. Patient tolerated the procedure well and was following commands and moving all extremities. Patient was then sent to PACU for recovery. Plan - Discharge Summary Discharge Rx Participant: No New Discharge Prescriptions: No Action Atorvastatin [Lipitor] 40 mg PO DAILY Tadalafil [Cialis] 20 mg PO DIRECTED Insulin Degludec [Tresiba Flextouch U-200] 34 units SQ AC-BRKFST Clopidogrel Bisulfate [Plavix] 75 mg PO DAILY #30 tab Lisinopril [Zestril] 5 mg PO DAILY Empagliflozin [Jardiance] 25 mg PO DAILY Metoprolol Succinate (ER) [Toprol Xl] 25 mg PO DAILY Aspirin 81 mg PO DAILY Discharge Medication List Atorvastatin [Lipitor] 40 mg PO DAILY 09/06/16 [History] Insulin Degludec [Tresiba Flextouch U-200] 34 units SQ AC-BRKFST 09/04/19 [History] Tadalafil [Cialis] 20 mg PO DIRECTED 09/04/19 [History] Clopidogrel Bisulfate [Plavix] 75 mg PO DAILY #30 tab 10/08/19 [Rx] Aspirin 81 mg PO DAILY 10/27/19 [History] Empagliflozin [Jardiance] 25 mg PO DAILY 10/27/19 [History] Lisinopril [Zestril] 5 mg PO DAILY 10/27/19 [History] Metoprolol Succinate (ER) [Toprol Xl] 25 mg PO DAILY 10/27/19 [History] Follow up Appointment(s)/Referral(s): Simba Casillas DO [STAFF PHYSICIAN] - 2 Weeks Activity/Diet/Wound Care/Special Instructions: Regular, no lifting greater than 15 lbs x 2 weeks Discharge Disposition: HOME SELF-CARE
[2019-10-31 10:29] LABS: Glucose,Whole Blood 195 mg/dL (75-99)
[2019-10-31] MEDS: LACTATED RINGERS 1,000 ML IV SCH ×2 (11:00→23:24)
[2019-10-31 11:11] LABS: Glucose,Whole Blood 191 mg/dL (75-99)
--- NOTE | 2019-10-31 15:15 | P.CNPUL ---
History of Present Illness Consult date: 10/31/19 Requesting physician: Simba Casillas Reason for consult: other Chief complaint: Left carotid stenosis, status post left carotid endarterectomy History of present illness: 54-year-old white male patient of Dr. Figueroa with a recent history of TIA with aphasia, was found to have severe stenosis of the left internal carotid artery. Other medical history includes coronary artery disease with previous 3 vessel bypass surgery in 2013, diabetes mellitus type 2, hyperlipidemia, former smoker, patient smoked for 15 years less than a pack a day. Patient presented today on 10/31/2019 for left carotid endarterectomy with patch angioplasty. We seen the patient in the postoperative period in the intensive care unit, he is awake and alert, in no acute distress, hemodynamically patient is stable, patient is in sinus mechanism, 2 L of oxygen with a pulse ox of 95%, afebrile, denies any shortness of breath, denies any discomfort. Left neck incision is clean dry and intact, trachea midline, no evidence of hematoma, neurologically intact, CLARY drain draining small amount of serosanguineous drainage, maintenance IV fluids lactated Ringer's at a rate of 80 ML per hour, patient's on Kefzol, aspirin and Plavix, Lipitor. Blood pressure is 123/58, Chestnut complaints. Review of Systems All systems: negative Constitutional: Denies chills, Denies fever Eyes: denies blurred vision, denies pain Ears, nose, mouth and throat: Denies headache, Denies sore throat Cardiovascular: Denies chest pain, Denies shortness of breath Respiratory: Denies cough Gastrointestinal: Denies abdominal pain, Denies diarrhea, Denies nausea, Denies vomiting Musculoskeletal: Denies myalgias Integumentary: Denies pruritus, Denies rash Neurological: Denies numbness, Denies weakness Psychiatric: Denies anxiety, Denies depression Endocrine: Denies fatigue, Denies weight change Past Medical History Past Medical History: Coronary Artery Disease (CAD), CVA/TIA, Diabetes Mellitus, Hyperlipidemia Additional Past Medical History / Comment(s): TIA 10/08/19. Carotid stenosis. Edema legs when on feet for extended time. History of Any Multi-Drug Resistant Organisms: None Reported Past Surgical History: Appendectomy, Cholecystectomy, Coronary Bypass/CABG, Heart Catheterization, Orthopedic Surgery, Tonsillectomy Additional Past Surgical History / Comment(s): Bilateral knee surg 1989, Triple CABG 2013. Past Anesthesia/Blood Transfusion Reactions: No Reported Reaction Smoking Status: Former smoker - Past Family History Father Family Medical History: Cancer Additional Family Medical History / Comment(s): skin CA Medications and Allergies Home Medications Medication Instructions Recorded Confirmed Type Atorvastatin [Lipitor] 40 mg PO DAILY 09/06/16 10/27/19 History Insulin Degludec [Tresiba 34 units SQ AC-BRKFST 09/04/19 10/31/19 History Flextouch U-200] Tadalafil [Cialis] 20 mg PO DIRECTED 09/04/19 10/31/19 History Clopidogrel Bisulfate [Plavix] 75 mg PO DAILY #30 tab 10/08/19 10/27/19 Rx Aspirin 81 mg PO DAILY 10/27/19 10/27/19 History Empagliflozin [Jardiance] 25 mg PO DAILY 10/27/19 10/27/19 History Lisinopril [Zestril] 5 mg PO DAILY 10/27/19 10/27/19 History Metoprolol Succinate (ER) [Toprol 25 mg PO DAILY 10/27/19 10/27/19 History Xl] Allergies Allergy/AdvReac Type Severity Reaction Status Date / Time No Known Allergies Allergy Verified 10/31/19 06:10 Physical Exam Vitals: Vital Signs Temp Pulse Pulse Pulse Resp BP BP 10/31/19 14:00 63 11 L 10/31/19 13:30 62 14 10/31/19 13:00 61 10 L 10/31/19 12:30 62 10 L 10/31/19 12:15 62 14 10/31/19 12:00 64 13 10/31/19 11:45 61 16 112/65 10/31/19 11:30 58 L 14 112/65 10/31/19 11:20 96.0 F L 58 L 14 10/31/19 11:10 57 L 12 10/31/19 10:46 60 18 10/31/19 10:31 58 L 16 114/54 10/31/19 10:16 57 L 18 116/52 10/31/19 10:04 98 F 63 16 125/56 10/31/19 06:15 98 F 61 16 138/65 BP Pulse Ox 10/31/19 14:00 95 10/31/19 13:30 96 01/21/20 13:00 96 10/31/19 12:30 96 10/31/19 12:15 96 10/31/19 12:00 87 L 10/31/19 11:45 10/31/19 11:30 10/31/19 11:20 10/31/19 11:10 10/31/19 10:46 120/55 95 10/31/19 10:31 100 10/31/19 10:16 114/63 98 10/31/19 10:04 100 10/31/19 06:15 127/69 97 Intake and Output 10/31/19 10/31/19 10/31/19 06:59 14:59 22:59 Intake Total 200 1494 Output Total 1225 Balance 200 269 Intake: IV 200 1394 Lactated Ringers 1,000 ml 240 @ 80 mls/hr IV .[id number] [facility] Rx#:[id number] Oral 100 Output: Urine 875 Estimated Blood Loss 350 Other: Voiding Method Indwelling Catheter Weight 97.2 kg ABP, PAP, CO, CI - Last 8 Hours Arterial Blood Pressure 123/58 Arterial Blood Pressure 115/57 Arterial Blood Pressure 114/55 Arterial Blood Pressure 113/56 Arterial Blood Pressure 118/57 Arterial Blood Pressure 114/55 Arterial Blood Pressure 119/56 Arterial Blood Pressure 124/58 Arterial Blood Pressure 123/59 GENERAL EXAM: Alert, very pleasant, 54-year-old white male, 2 L of oxygen, the pulse ox of 95-96% comfortable in no apparent distress. HEAD: Normocephalic/atraumatic. EYES: Normal reaction of pupils, equal size. Conjunctiva pink, sclera white. NOSE: Clear with pink turbinates. THROAT: No erythema or exudates. NECK: No masses, no JVD, no thyroid enlargement, no adenopathy. Left neck incision is clean dry and intact, no hematoma, incision is soft, trachea midline, no deviation, neurologically intact, CLARY drain is draining minimal seros anguineous output CHEST: No chest wall deformity. Symmetrical expansion. LUNGS: Equal air entry with no crackles, wheeze, rhonchi or dullness. CVS: Regular rate and rhythm, normal S1 and S2, no gallops, no murmurs, no rubs ABDOMEN: Soft, nontender. No hepatosplenomegaly, normal bowel sounds, no guarding or rigidity. EXTREMITIES: No clubbing, no edema, no cyanosis, 2+ pulses and upper and lower extremities. MUSCULOSKELETAL: Muscle strength and tone normal. SPINE: No scoliosis or deformity SKIN: No rashes CENTRAL NERVOUS SYSTEM: Alert and oriented -3. No focal deficits, tone is normal in all 4 extremities. PSYCHIATRIC: Alert and oriented -3. Appropriate affect. Intact judgment and insight. Results - Laboratory Findings Abnormal lab findings: Abnormal Labs 10/31/19 10/31/19 10/31/19 06:23 10:25 11:09 POC Glucose (mg/dL) 225 H 195 H 191 H Assessment and Plan Plan: Assessment: #1. Severe carotid stenosis status post left carotid endarterectomy and patch angioplasty postoperative day 0 #2. History of CVA/TIA on 09/28/2019 patient presented with complaints of aphasia, currently his symptoms had resolved, no lateralizing deficits, no signs of aphasia #3. History of coronary artery disease status post three-vessel bypass grafting in 2013 #4. Diabetes mellitus type 2 #5. Previous history of smoking, currently in remission, patient carries 15 years of smoking history less than a pack a day #6. Hyperlipidemia Plan: Continue IV fluids, continue antibiotics, patient is on aspirin and Plavix, and Lipitor, vitals are stable, hemodynamically stable, neurologically intact, incisions clean dry and intact, no difficulty breathing, no specific complaints, we'll continue to closely monitor in the intensive care unit. GI and DVT prophylaxis. Doing well, we'll continue to follow I performed a history & physical examination of the patient and discussed their management with my nurse practitioner, Jeannine Lambert. I reviewed the nurse practitioner's note and agree with the documented findings and plan of care. Lung sounds are positive for clear breath sounds. The findings and the impression was discussed with the patient. I attest to the documentation by the nurse practitioner. Time with Patient: Greater than 30
[2019-10-31] MEDS: IBUPROFEN 600 MG TAB PO SCH ×2 (16:53→21:31)
[2019-10-31 16:58] LABS: Glucose,Whole Blood 167 mg/dL (75-99)
[2019-10-31] MEDS: INSULIN ASPART (NovoLOG) 100 UNIT/ML VIAL SQ SCH ×2 (17:01→21:32)
--- NOTE | 2019-10-31 19:45 | P.CONS ---
History of Present Illness - History of Present Illness This is a pleasant 54 years old male with past medical history of coronary ar poonam disease, diabetes mellitus, hyperlipidemia, coronary artery disease status post CABG, carotid stenosis with TIA in 09/2019 with anesthesia. Patient was found severe stenosis of the left internal carotid artery, patient is planned for elective left carotid endarterectomy. Today is postop day #1. Patient is lying in bed comfortable, she only has some pain at the surgical site which is expected, no other specific complaint like no chest pain or dyspnea , he is going to stat to eat a little bit now Vitals are stable. Sugar control. Labs from yesterday and the system noted CBC is unremarkable. With WBC of 6.3K, hemoglobin 14.3 and platelet count 220 K. BMP from 10/08/2019 was unremarkable sodium 136, creatinine 1.0. Liver enzymes not elevated. At home he was on a tresiba 34 units subcutaneous before breakfast. and jandiance 25 mg daily Patient currently is on Levemir 34 units daily, and his sugar is running 190- 225. Review of Systems CONSTITUTIONAL: No fever, no malaise, no fatigue. HEENT: No recent visual problems or hearing problems. Denied any sore throat. CARDIOVASCULAR: No orthopnea, PND, no palpitations, no syncope. PULMONARY: No shortness of breath, no cough, no hemoptysis. GASTROINTESTINAL: No diarrhea, no nausea, no vomiting, no abdominal pain. Normoactive bowel sounds. NEUROLOGICAL: No headaches, no weakness, no numbness. HEMATOLOGICAL: Denies any bleeding or petechiae. GENITOURINARY: Denies any burning micturition, frequency, or urgency. MUSCULOSKELETAL/RHEUMATOLOGICAL: Denies any joint pain, swelling, or any muscle pain. ENDOCRINE: Denies any polyuria or polydipsia. Past Medical History Past Medical History: Coronary Artery Disease (CAD), CVA/TIA, Diabetes Mellitus, Hyperlipidemia Additional Past Medical History / Comment(s): TIA 10/08/19. Carotid stenosis. Edema legs when on feet for extended time. History of Any Multi-Drug Resistant Organisms: None Reported Past Surgical History: Appendectomy, Cholecystectomy, Coronary Bypass/CABG, Heart Catheterization, Orthopedic Surgery, Tonsillectomy Additional Past Surgical History / Comment(s): Bilateral knee surg 1989, Triple CABG 2013. Past Anesthesia/Blood Transfusion Reactions: No Reported Reaction Smoking Status: Former smoker - Past Family History Father Family Medical History: Cancer Additional Family Medical History / Comment(s): skin CA Medications and Allergies Home Medications Medication Instructions Recorded Confirmed Type Atorvastatin [Lipitor] 40 mg PO DAILY 09/06/16 10/27/19 History Insulin Degludec [Tresiba 34 units SQ AC-BRKFST 09/04/19 10/31/19 History Flextouch U-200] Tadalafil [Cialis] 20 mg PO DIRECTED 09/04/19 10/31/19 History Clopidogrel Bisulfate [Plavix] 75 mg PO DAILY #30 tab 10/08/19 10/27/19 Rx Aspirin 81 mg PO DAILY 10/27/19 10/27/19 History Empagliflozin [Jardiance] 25 mg PO DAILY 10/27/19 10/27/19 History Lisinopril [Zestril] 5 mg PO DAILY 10/27/19 10/27/19 History Metoprolol Succinate (ER) [Toprol 25 mg PO DAILY 10/27/19 10/27/19 History Xl] Allergies Allergy/AdvReac Type Severity Reaction Status Date / Time No Known Allergies Allergy Verified 10/31/19 06:10 Physical Exam Vitals: Vital Signs Temp Pulse Pulse Resp BP BP Pulse Ox 10/31/19 10:46 60 18 120/55 95 10/31/19 10:31 58 L 16 114/54 100 10/31/19 10:16 57 L 18 116/52 114/63 98 10/31/19 10:04 98 F 63 16 125/56 100 10/31/19 06:15 98 F 61 16 138/65 127/69 97 Intake and Output 10/30/19 10/31/19 10/31/19 22:59 06:59 14:59 Intake Total 200 1154 Output Total 950 Balance 200 204 Intake: IV 200 1154 Output: Urine 600 Estimated Blood Loss 350 Other: Weight 97.2 kg GENERAL: The patient is alert and oriented x3, not in any acute distress. Well developed, well nourished. -HEENT: Pupils are round and equally reacting to light. EOMI. No scleral icterus. No conjunctival pallor. Normocephalic, atraumatic. No pharyngeal erythema. No thyromegaly. Left neck base incision , dressing is in place CARDIOVASCULAR: S1 and S2 present. No murmurs, rubs, or gallops. PULMONARY: Chest is clear to auscultation, no wheezing or crackles. ABDOMEN: Soft, nontender, nondistended, normoactive bowel sounds. No palpable organomegaly. MUSCULOSKELETAL: No joint swelling or deformity. EXTREMITIES: No cyanosis, clubbing, or pedal edema. NEUROLOGICAL: Gross neurological examination did not reveal any focal deficits. SKIN: No rashes. No petechiae Results Labs: Abnormal Lab Results - Last 24 Hours (Table) 10/31/19 10/31/19 10/31/19 Range/Units 06:23 10:25 11:09 POC Glucose (mg/dL) 225 H 195 H 191 H (75-99) mg/dL Assessment and Plan Assessment: Patient with severe left artery carotid stenosis status post left carotid endarterectomy Recent TIA with aphasia in Diabetes mellitus Hyperlipidemia History of coronary artery disease status post CABG Plan: This is a pleasant 54 years old male who presents for elective left endarterectomy. Continue with the same diabetes medications ( home meds are non fomulary so switched to levemir) and insulin sliding scale. c/w aspirin and plavix as per surgical team recommendation Labs and medication were reviewed.. Continue same treatment. Continue with symptomatic treatment. Resume home medication. Monitor lytes and vitals. DVT and GI prophylaxis. Further recommendations of the clinical course of the patient DVT prophylaxis: Subcutaneous Lovenox GI Prophylaxis: Pepcid PT/OT: Pending Prognosis is guarded
[2019-10-31 21:03] LABS: Glucose,Whole Blood 150 mg/dL (75-99)
[2019-11-01] MEDS: ACETAMINOPHEN TAB 325 MG TAB PO PRN ×2 (01:42→04:45)
[2019-11-01 04:10] LABS: Basophils % (A) 0 %; Eosinophils # (A) 0.1 k/uL (0-0.7); Eosinophils % (A) 1 %; HCT 34.8 % (39.0-53.0); HGB 11.9 gm/dL (13.0-17.5); Lymphocytes # (A) 1.8 k/uL (1.0-4.8); Lymphocytes % (A) 20 %; MCH 30.1 pg (25.0-35.0); MCHC 34.3 g/dL (31.0-37.0); MCV 87.9 fL (80.0-100.0); Mean Platelet Volume 7.5; Monocytes # (A) 0.4 k/uL (0-1.0); Monocytes % (A) 4 %; Neutrophils # (A) 6.7 k/uL (1.3-7.7); Neutrophils % (A) 73 %; Platelet Count 191 k/uL (150-450); RBC 3.96 m/uL (4.30-5.90); RDW 13.3 % (11.5-15.5); WBC 9.2 k/uL (3.8-10.6)
[2019-11-01 04:19] LABS: African American GFR (CKD) >90 (>60 ml/min/1.73 sqM); Anion Gap 6 mmol/L; Blood Urea Nitrogen 19 mg/dL (9-20); Calcium 9.1 mg/dL (8.4-10.2); Carbon Dioxide 24 mmol/L (22-30); Chloride 106 mmol/L (98-107); Glucose 129 mg/dL (74-99); Non-African American GFR(CKD) >90 (>60 ml/min/1.73 sqM); Potassium 3.9 mmol/L (3.5-5.1); Sodium 136 mmol/L (137-145)
[2019-11-01 06:50] LABS: Glucose,Whole Blood 149 mg/dL (75-99)
[2019-11-01] MEDS: INSULIN ASPART (NovoLOG) 100 UNIT/ML VIAL SQ SCH ×2 (07:09→12:02)
[2019-11-01] MEDS ORDERED: INSULIN DETEMIR (LEVEMIR) 100 UNIT/ML SYR SQ SCH (07:30)
--- NOTE | 2019-11-01 07:37 | P.PN ---
Subjective Progress Note Date: 11/01/19 Principal diagnosis: Carotid stenosis Patient seen and examined. Doing well overnight, pain controlled. No complaints. Objective - Vital Signs Vital signs: Vital Signs Temp 97.5 F L 11/01/19 04:00 Pulse 68 11/01/19 07:00 Resp 26 H 11/01/19 07:00 BP 109/58 11/01/19 07:00 Pulse Ox 94 L 11/01/19 07:00 Intake & Output 10/31/19 11/01/19 11/01/19 18:59 06:59 18:59 Intake Total 2013 1785 80 Output Total 1765 1095 Balance 249 690 80 Weight 103.9 kg Intake: IV 1714 960 80 Lactated Ringers 1,000 ml 560 960 80 @ 80 mls/hr IV .[id number] [facility] Rx#:[id number] Oral 300 825 Output: Drainage 15 20 Left Neck 15 20 Urine 1400 1075 Estimated Blood Loss 350 Other: Voiding Method Indwelling Catheter Indwelling Catheter ABP, PAP, CO, CI - Last Documented Arterial Blood Pressure 127/53 - Exam Left carotid incision site c/d/i Drain with minimal output Non tender to palpation - Constitutional General appearance: Present: cooperative, mild distress - EENT Eyes: Present: PERRLA - Respiratory Respiratory: bilateral: CTA - Cardiovascular Rhythm: regular - Neurologic Neurologic: Present: CNII-XII intact. Absent: focal deficits - Psychiatric Psychiatric: Present: A&O x's 3 - Labs CBC & Chem 7: 11/01/19 04:00 11/01/19 04:00 Labs: Abnormal Lab Results - Last 24 Hours (Table) 10/31/19 10/31/19 10/31/19 Range/Units 10:25 11:09 16:56 RBC (4.30-5.90) m/uL Hgb (13.0-17.5) gm/dL Hct (39.0-53.0) % Sodium (137-145) mmol/L Glucose (74-99) mg/dL POC Glucose (mg/dL) 195 H 191 H 167 H (75-99) mg/dL 10/31/19 11/01/19 11/01/19 Range/Units 21:01 04:00 04:00 RBC 3.96 L (4.30-5.90) m/uL Hgb 11.9 L (13.0-17.5) gm/dL Hct 34.8 L (39.0-53.0) % Sodium 136 L (137-145) mmol/L Glucose 129 H (74-99) mg/dL POC Glucose (mg/dL) 150 H (75-99) mg/dL 11/01/19 Range/Units 06:48 RBC (4.30-5.90) m/uL Hgb (13.0-17.5) gm/dL Hct (39.0-53.0) % Sodium (137-145) mmol/L Glucose (74-99) mg/dL POC Glucose (mg/dL) 149 H (75-99) mg/dL Assessment and Plan Assessment: #1 left internal carotid artery severe stenosis greater than 90% s/p L CEA #2 recent TIA with aphasia #3 coronary artery disease #4 diabetes Plan: D/C wilson catheter, and mary drain. increase activity. Regular diet. If tolerates breakfast then ok for d/c home.
[2019-11-01 08:19] VITALS: TEMP 97.8
--- NOTE | 2019-11-01 08:39 | P.PN ---
Subjective Progress Note Date: 11/01/19 Principal diagnosis: left carotid stenosis, status post left carotid endarterectomy 54-year-old white male patient of Dr. Figueroa with a recent history of TIA with aphasia, was found to have severe stenosis of the left internal carotid artery. Other medical history includes coronary artery disease with previous 3 vessel bypass surgery in 2013, diabetes mellitus type 2, hyperlipidemia, former smoker, patient smoked for 15 years less than a pack a day. Patient presented today on 10/31/2019 for left carotid endarterectomy with patch angioplasty. We seen the patient in the postoperative period in the intensive care unit, he is awake and alert, in no acute distress, hemodynamically patient is stable, patient is in sinus mechanism, 2 L of oxygen with a pulse ox of 95%, afebrile, denies any shortness of breath, denies any discomfort. Left neck incision is clean dry and intact, trachea midline, no evidence of hematoma, neurologically intact, CLARY drain draining small amount of serosanguineous drainage, maintenance IV fluids lactated Ringer's at a rate of 80 ML per hour, patient's on Kefzol, aspirin and Plavix, Lipitor. Blood pressure is 123/58, specific complaints. On 11/01/2019 patient seen in follow-up in the intensive care unit, this is postoperative day 1 status post left carotid endarterectomy. She is doing well, hemodynamically stable, no acute events overnight, some soreness at the left neck incision site, CLARY drain is draining minimal fluid, incision is clean dry and intact, soft, no tracheal deviation, neurologically intact, denies any specific complaints, no shortness of breath or chest pain. His labs have been reviewed, white blood cell count is 9.2, hemoglobin is 11.9, sodium is 136, the rest of his choice and renal profile are within normal limits Objective - Vital Signs Vital signs: Vital Signs Temp 97.8 F 11/01/19 08:00 Pulse 72 11/01/19 08:00 Resp 11 L 11/01/19 08:00 BP 119/64 11/01/19 08:00 Pulse Ox 93 L 11/01/19 08:00 Intake & Output 10/31/19 11/01/19 11/01/19 18:59 06:59 18:59 Intake Total 2013 1784 280 Output Total 1764 1095 400 Balance 249 690 -120 Weight 103.9 kg Intake: IV 1714 960 80 Lactated Ringers 1,000 ml 560 960 80 @ 80 mls/hr IV .[id number] [facility] Rx#:[id number] Oral 300 825 200 Output: Drainage 15 20 Left Neck 15 20 Urine 1400 1075 400 Estimated Blood Loss 350 Other: Voiding Method Indwelling Catheter Indwelling Catheter Indwelling Catheter ABP, PAP, CO, CI - Last Documented Arterial Blood Pressure 127/53 - Exam GENERAL EXAM: Alert, very pleasant, 54-year-old white male, 2 L of oxygen, the pulse ox of 95-96% comfortable in no apparent distress. HEAD: Normocephalic/atraumatic. EYES: Normal reaction of pupils, equal size. Conjunctiva pink, sclera white. NOSE: Clear with pink turbinates. THROAT: No erythema or exudates. NECK: No masses, no JVD, no thyroid enlargement, no adenopathy. Left neck incision is clean dry and intact, no hematoma, incision is soft, trachea midline, no deviation, neurologically intact, CLARY drain is draining minimal serosanguineous output CHEST: No chest wall deformity. Symmetrical expansion. LUNGS: Equal air entry with no crackles, wheeze, rhonchi or dullness. CVS: Regular rate and rhythm, normal S1 and S2, no gallops, no murmurs, no rubs ABDOMEN: Soft, nontender. No hepatosplenomegaly, normal bowel sounds, no guarding or rigidity. EXTREMITIES: No clubbing, no edema, no cyanosis, 2+ pulses and upper and lower extremities. MUSCULOSKELETAL: Muscle strength and tone normal. SPINE: No scoliosis or deformity SKIN: No rashes CENTRAL NERVOUS SYSTEM: Alert and oriented -3. No focal deficits, tone is normal in all 4 extremities. PSYCHIATRIC: Alert and oriented -3. Appropriate affect. Intact judgment and insight. - Labs CBC & Chem 7: 11/01/19 04:00 11/01/19 04:00 Labs: Abnormal Lab Results - Last 24 Hours (Table) 10/31/19 10/31/19 10/31/19 Range/Units 10:25 11:09 16:56 RBC (4.30-5.90) m/uL Hgb (13.0-17.5) gm/dL Hct (39.0-53.0) % Sodium (137-145) mmol/L Glucose (74-99) mg/dL POC Glucose (mg/dL) 195 H 191 H 167 H (75-99) mg/dL 10/31/19 11/01/19 11/01/19 Range/Units 21:01 04:00 04:00 RBC 3.96 L (4.30-5.90) m/uL Hgb 11.9 L (13.0-17.5) gm/dL Hct 34.8 L (39.0-53.0) % Sodium 136 L (137-145) mmol/L Glucose 129 H (74-99) mg/dL POC Glucose (mg/dL) 150 H (75-99) mg/dL 11/01/19 Range/Units 06:48 RBC (4.30-5.90) m/uL Hgb (13.0-17.5) gm/dL Hct (39.0-53.0) % Sodium (137-145) mmol/L Glucose (74-99) mg/dL POC Glucose (mg/dL) 149 H (75-99) mg/dL Assessment and Plan Plan: Assessment: #1. Severe carotid stenosis status post left carotid endarterectomy and patch angioplasty postoperative day 1 #2. History of CVA/TIA on 09/28/2019 patient presented with complaints of aphasia, currently his symptoms had resolved, no lateralizing deficits, no signs of aphasia #3. History of coronary artery disease status post three-vessel bypass grafting in 2013 #4. Diabetes mellitus type 2 #5. Previous history of smoking, currently in remission, patient carries 15 years of smoking history less than a pack a day #6. Hyperlipidemia Plan: Patient doing well, no acute events overnight, hemodynamically stable, neurologi herberth intact, his labs have been noted, no difficulty breathing, patient is up in the chair, CLARY drain in the left neck is draining minimal output. Anticipate removal of the CLARY drain today, and patient is being discharged home I performed a history & physical examination of the patient and discussed their management with my nurse practitioner, Jeannine Lambert. I reviewed the nurse practitioner's note and agree with the documented findings and plan of care. Lung sounds are positive for clear breath sounds. The findings and the impression was discussed with the patient. I attest to the documentation by the nurse practitioner. Time with Patient: Less than 30
[2019-11-01] MEDS ORDERED: ASPIRIN 81 MG PO SCH (09:00)
[2019-11-01] MEDS ORDERED: METOPROLOL SUCCINATE (ER) 25 MG TAB.ER.24H PO SCH (09:00)
[2019-11-01] MEDS ORDERED: ATORVASTATIN 40 MG TAB PO SCH (09:00)
[2019-11-01] MEDS ORDERED: Empagliflozin [Jardiance] 25 MG PO SCH (09:00)
[2019-11-01] MEDS ORDERED: LISINOPRIL 5 MG TAB PO SCH (09:00)
[2019-11-01] MEDS ORDERED: CLOPIDOGREL 75 MG TAB PO SCH (09:00)
[2019-11-01] MEDS ORDERED: ENOXAPARIN 40 MG/0.4 ML SYRINGE SQ SCH (09:00)
[2019-11-01] MEDS: IBUPROFEN 600 MG TAB PO SCH (09:01)
[2019-11-01] MEDS: LACTATED RINGERS 1,000 ML IV SCH (10:15)
[2019-11-01 11:07] VITALS: BP 123/73
[2019-11-01 11:44] LABS: Glucose,Whole Blood 178 mg/dL (75-99)
[2019-11-01 12:08] VITALS: PULSE 67; RESP 19
--- NOTE | 2019-11-01 12:12 | P.PN ---
Subjective This is a pleasant 54 years old male with past medical history of coronary artery disease, diabetes mellitus, hyperlipidemia, coronary artery disease status post CABG, carotid stenosis with TIA in 09/2019 with anesthesia. Patient was found severe stenosis of the left internal carotid artery, patient is planned for elective left carotid endarterectomy. Today is postop day #1. Patient is lying in bed comfortable, she only has some pain at the surgical site which is expected, no other specific complaint like no chest pain or dyspnea , he is going to stat to eat a little bit now Vitals are stable. Sugar control. Labs from yesterday and the system noted CBC is unremarkable. With WBC of 6.3K, hemoglobin 14.3 and platelet count 220 K. B MP from 10/08/2019 was unremarkable sodium 136, creatinine 1.0. Liver enzymes not elevated. At home he was on a tresiba 34 units subcutaneous before breakfast. and jandiance 25 mg daily Patient currently is on Levemir 34 units daily, and his sugar is running 190- 225. 11/01/2019 Patient was sitting in chair, fully awake and oriented, has minimal pain in his left neck base. No other complaint. Patient is eating and breathing normally and he tolerating diet with no problem. No chest pain or dyspnea. No other complaint. He is hemodynamically stable and labs reviewed. Sugar controlled and running in the range of 149-178. Is currently on insulin Levemir 34 units daily and insulin sliding scale. And he needed only one extra units per scale today. Because of this I instructed the patient and at bedside that he can go back to tresiba at home, but hold on jardiance as his sugar is controlled only with one medicine here in the hospital, at the same time patient instructed to keep checking his sugar 4 times daily and before bedtime and he agrees. Patient instructed to sugar less than 70 or more than 350 then to call 911 and to come to emergency room and he agrees. Also I reviewed the signs symptoms and management of hypoglycemia and patient is aware of them now. Hemodynamically he is stable. Labs are stable. Objective - Vital Signs Vital signs: Vital Signs Temp 97.8 F 11/01/19 08:00 Pulse 55 L 11/01/19 11:00 Resp 17 11/01/19 11:00 BP 123/73 11/01/19 11:00 Pulse Ox 93 L 11/01/19 11:00 Intake & Output 10/31/19 11/01/19 11/01/19 18:59 06:59 18:59 Intake Total 2013 1785 380 Output Total 1765 1095 1050 Balance 249 690 -670 Weight 103.9 kg Intake: IV 1714 960 80 Lactated Ringers 1,000 ml 560 960 80 @ 80 mls/hr IV .[id number] [facility] Rx#:[id number] Oral 300 825 300 Output: Drainage 15 20 Left Neck 15 20 Urine 1400 1075 1050 Estimated Blood Loss 350 Other: Voiding Method Indwelling Catheter Indwelling Catheter Indwelling Catheter ABP, PAP, CO, CI - Last Documented Arterial Blood Pressure 127/53 - Exam GENERAL: The patient is alert and oriented x3, not in any acute distress. Well developed, well nourished. -HEENT: Pupils are round and equally reacting to light. EOMI. No scleral icterus. No conjunctival pallor. Normocephalic, atraumatic. No pharyngeal erythema. No thyromegaly. Left neck base incision , dressing is in place CARDIOVASCULAR: S1 and S2 present. No murmurs, rubs, or gallops. PULMONARY: Chest is clear to auscultation, no wheezing or crackles. ABDOMEN: Soft, nontender, nondistended, normoactive bowel sounds. No palpable organomegaly. MUSCULOSKELETAL: No joint swelling or deformity. EXTREMITIES: No cyanosis, clubbing, or pedal edema. NEUROLOGICAL: Gross neurological examination did not reveal any focal deficits. SKIN: No rashes. No petechiae - Labs CBC & Chem 7: 11/01/19 04:00 11/01/19 04:00 Labs: Abnormal Lab Results - Last 24 Hours (Table) 10/31/19 10/31/19 11/01/19 Range/Units 16:56 21:01 04:00 RBC (4.30-5.90) m/uL Hgb (13.0-17.5) gm/dL Hct (39.0-53.0) % Sodium 136 L (137-145) mmol/L Glucose 129 H (74-99) mg/dL POC Glucose (mg/dL) 167 H 150 H (75-99) mg/dL 11/01/19 11/01/19 11/01/19 Range/Units 04:00 06:48 11:43 RBC 3.96 L (4.30-5.90) m/uL Hgb 11.9 L (13.0-17.5) gm/dL Hct 34.8 L (39.0-53.0) % Sodium (137-145) mmol/L Glucose (74-99) mg/dL POC Glucose (mg/dL) 149 H 178 H (75-99) mg/dL Assessment and Plan Assessment: Patient with severe left artery carotid stenosis status post left carotid endarterectomy Recent TIA with aphasia in Diabetes mellitus Hyperlipidemia History of coronary artery disease status post CABG Plan: This is a pleasant 54 years old male who presents for elective left endarterectomy. Continue with the same diabetes medications ( home meds are non fomulary so switched to levemir) and insulin sliding scale. c/w aspirin and plavix as per surgical team recommendation When patient goes home he can resume his Tresiba but hold jardiance until he sees his family care doctor. Patient instructed Continue same treatment. Continue with symptomatic treatment. Resume home medication. Monitor lytes and vitals. DVT and GI prophylaxis. Further recommendations of the clinical course of the patient DVT prophylaxis: Subcutaneous Lovenox GI Prophylaxis: Pepcid Prognosis is guarded
[2019-11-01 14:34] LABS: Hemoglobin A1C 8.3 % (4.0-6.0)
== END 2019-11-01 12:31 | disposition home or self-care (01) | DRG 39 ==
LOC: 2ORMAIN 05:53 → 2SICU 10:13
PROVIDERS: ADMIT Surgery; ATTEND Surgery
PROC: 03UL0KZ Supplement Left Internal Carotid Artery with Nonautologous Tissue Substitute, Open Approach (ICD-10-PCS; principal; 2019-10-31 07:30)
PROC: 03CL0ZZ Extirpation of Matter from Left Internal Carotid Artery, Open Approach (ICD-10-PCS; principal; 2019-10-31 07:30)
DX: I65.22 Occlusion and stenosis of left carotid artery (principal); E11.649 Type 2 diabetes mellitus with hypoglycemia without coma; E78.5 Hyperlipidemia, unspecified; I25.10 Atherosclerotic heart disease of native coronary artery without angina pectoris; Z79.02 Long term (current) use of antithrombotics/antiplatelets; Z79.4 Long term (current) use of insulin; Z79.82 Long term (current) use of aspirin; Z79.899 Other long term (current) drug therapy; Z87.891 Personal history of nicotine dependence; Z95.1 Presence of aortocoronary bypass graft; I69.320 Aphasia following cerebral infarction; Z80.8 Family history of malignant neoplasm of other organs or systems; Z90.49 Acquired absence of other specified parts of digestive tract
CPT/HCPCS: 80048; 83036; 85025; 86850; 86900; 86901; 88304; 88305; 88311

== ENCOUNTER 2020-01-21 21:18 | Inpatient (IN) | payer BC ==
[2020-01-21] MEDS ORDERED: VANCOMYCIN IV PER PHARMACY 1 EACH MISC MISCELLANE PRN (21:58)
[2020-01-21] MEDS ORDERED: PIPERACILLIN-TAZOBACTAM 3.375 GM in SODIUM CHLORIDE 0.9% 100 ML IVPB STA (21:58)
[2020-01-21] MEDS ORDERED: SODIUM CHLORIDE 0.9% 500 ML 500 ML IV ONE (21:59)
[2020-01-21] MEDS ORDERED: DIPH,PERTUS(ACELL)TETVAC-LF 0.5 ML VIAL IM ONE (21:59)
[2020-01-21] MEDS ORDERED: MORPHINE SULFATE 4 MG/ML SYRINGE IV STA (22:00)
[2020-01-21] MEDS ORDERED: VANCOMYCIN 1,500 MG in SODIUM CHLORIDE 0.9% 250 ML IVPB STA (22:00)
--- NOTE | 2020-01-21 22:18 | XR ---
EXAMINATION TYPE: XR hand complete LT DATE OF EXAM: 01/21/2020 COMPARISON: NONE HISTORY: Dog bite. Infection. TECHNIQUE: 3 views FINDINGS: I see no fracture nor dislocation. Metacarpals are intact. There is soft tissue swelling on the dorsum of the hand. There is possible small air bubbles in the soft tissues between the first an d second metacarpal. IMPRESSION: Soft tissue swelling. No fracture. Soft tissue air bubbles. 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 No focal bone destruction.
[2020-01-21 22:41] LABS: Basophils % (A) 0 %; Eosinophils # (A) 0.1 k/uL (0-0.7); Eosinophils % (A) 1 %; HCT 38.7 % (39.0-53.0); HGB 13.6 gm/dL (13.0-17.5); Lymphocytes # (A) 1.3 k/uL (1.0-4.8); Lymphocytes % (A) 12 %; MCH 30.1 pg (25.0-35.0); Mean Platelet Volume 7.8; Monocytes # (A) 0.5 k/uL (0-1.0); Monocytes % (A) 4 %; Neutrophils # (A) 8.9 k/uL (1.3-7.7); Neutrophils % (A) 81 %; Platelet Count 228 k/uL (150-450); RDW 12.9 % (11.5-15.5)
[2020-01-21 22:51] LABS: ALT 48 U/L (4-49); AST 32 U/L (17-59); African American GFR (CKD) >90 (>60 ml/min/1.73 sqM); Albumin 4.1 g/dL (3.5-5.0); Alkaline Phosphatase 94 U/L (38-126); Anion Gap 9 mmol/L; Blood Urea Nitrogen 21 mg/dL (9-20); Calcium 9.5 mg/dL (8.4-10.2); Carbon Dioxide 23 mmol/L (22-30); Chloride 104 mmol/L (98-107); Glucose 224 mg/dL (74-99); Non-African American GFR(CKD) 85 (>60 ml/min/1.73 sqM); Potassium 4.3 mmol/L (3.5-5.1); Sodium 136 mmol/L (137-145); Total Bilirubin 0.6 mg/dL (0.2-1.3); Total Protein 7.1 g/dL (6.3-8.2)
--- NOTE | 2020-01-21 22:55 | ED ---
General Adult HPI <Cristian Castaneda - Last Filed: 01/21/20 22:55> - General Source: patient, RN notes reviewed, old records reviewed Mode of arrival: ambulatory Limitations: no limitations <Wiliam Giang - Last Filed: 01/21/20 23:22> - General Chief complaint: Skin/Abscess/Foreign Body Stated complaint: Swollen hand Time Seen by Provider: 01/21/20 21:42 - History of Present Illness Initial comments: 54-year-old male patient no pertinent past history presents ED for chief complaint of dog bite to left hand. Patient reports that 2 days ago his 2 dogs were fighting he went to separate them and he was bit by one of his dogs in the left hand. Reports this is a large dog approximately 85 pounds. Since it is up-to-date on all shots. States that now hand is swollen painful. Denies any other complaints. Systemic: Pt denies fatigue, fever/chills, rash. Pt denies weakness, night sweats, weight loss. Neuro: Pt denies headache, visual disturbances, syncope or pre-syncope. HEENT: Pt denies ocular discharge or irritation, otalgia, rhinorrhea, pharyngitis or notable lymphadenopathy. Cardiopulmonary: Pt denies chest pain, SOB, heart palpitations, dyspnea on exertion. Abdominal/GI: Pt denies abdominal pain, n/v/d. : Pt denies dysuria, burning w/ urination, frequency/urgency. Denies new onset urinary or bowel incontinence. MSK: Pt denies myalgia, loss of strength or function in extremities. Neuro: Pt denies new onset weakness, paresthesias. (Wiliam Giang) - Related Data Home Medications Medication Instructions Recorded Confirmed Atorvastatin [Lipitor] 40 mg PO DAILY 09/06/16 10/27/19 Insulin Degludec [Tresiba 34 units SQ AC-BRKFST 09/04/19 10/31/19 Flextouch U-200] Tadalafil [Cialis] 20 mg PO DIRECTED 09/04/19 10/31/19 Aspirin 81 mg PO DAILY 10/27/19 10/27/19 Empagliflozin [Jardiance] 25 mg PO DAILY 10/27/19 10/27/19 Lisinopril [Zestril] 5 mg PO DAILY 10/27/19 10/27/19 Metoprolol Succinate (ER) [Toprol 25 mg PO DAILY 10/27/19 10/27/19 Xl] Previous Rx's Medication Instructions Recorded Clopidogrel Bisulfate [Plavix] 75 mg PO DAILY #30 tab 10/08/19 Allergies Allergy/AdvReac Type Severity Reaction Status Date / Time No Known Allergies Allergy Verified 01/21/20 21:24 Review of Systems ROS Other: All systems not noted in ROS Statement are negative. <Cristian Castaneda - Last Filed: 01/21/20 22:55> ROS Other: All systems not noted in ROS Statement are negative. <Wiliam Giang - Last Filed: 01/21/20 23:22> ROS Statement: Those systems with pertinent positive or pertinent negative responses have been documented in the HPI. Past Medical History Past Medical History: Coronary Artery Disease (CAD), CVA/TIA, Diabetes Mellitus, Hyperlipidemia Additional Past Medical History / Comment(s): TIA 10/08/19. Carotid stenosis. Edema legs when on feet for extended time. History of Any Multi-Drug Resistant Organisms: None Reported Past Surgical History: Appendectomy, Cholecystectomy, Coronary Bypass/CABG, Heart Catheterization, Orthopedic Surgery, Tonsillectomy Additional Past Surgical History / Comment(s): Bilateral knee surg 1989, Triple CABG 2013. Past Anesthesia/Blood Transfusion Reactions: No Reported Reaction Past Psychological History: No Psychological Hx Reported Smoking Status: Former smoker Past Alcohol Use History: None Reported Past Drug Use History: None Reported - Past Family History Father Family Medical History: Cancer Additional Family Medical History / Comment(s): skin CA <Wiliam Giang - Last Filed: 01/21/20 23:22> General Exam Limitations: no limitations <Wiliam Giang - Last Filed: 01/21/20 23:22> - General Exam Comments Initial Comments: Constitutional: NAD, AOX3, Pt has pleasant affect. HEENT: NC/AT, trachea midline, neck supple, no lymphadenopathy. Posterior pharynx non erythematous, without exudates. External ears appear normal, without discharge. Mucous membranes moist. Eyes PERRLA, EOM intact. There is no scleral icterus. No pallor noted. Cardiopulmonary: RRR, no murmurs, rubs or gallops, no JVD noted. Lungs CTAB in anterior and posterior ferris. No peripheral edema. Abdominal exam: Abdomen soft and non-distended. Abdomen non-tender to palpation in all 4 quadrants. Bowel sounds active in LLQ. No hepatosplenomegaly. No ecchymosis Neuro: CN II-XII grossly intact. No nuchal rigidity. No raccon eyes, no case sign, no hemotympanum. No cervical spinal tenderness. MSK: Dorsum of hand is erythematous and edematous. Index finger is in a flexed position, uniform swelling over flexor sheath, pain with passive extension. Multiple bite blancas noted. No open. (Wiliam Giang) Course Vital Signs 01/21/20 21:21 Temperature 99.3 F Pulse Rate 91 Respiratory 20 Rate Blood Pressure 134/84 O2 Sat by Pulse 97 Oximetry Medical Decision Making - Lab Data Result diagrams: 01/21/20 22:22 01/21/20 22:22 <Cristian Castaneda - Last Filed: 01/21/20 22:55> - Lab Data Result diagrams: 01/21/20 22:22 01/21/20 22:22 <Wiliam Giang - Last Filed: 01/21/20 23:22> - Medical Decision Making Patient reevaluated and reexamined by myself, Dr. Castaneda. Patient resting comfortably in bed following pain medication. I do agree with PA findings. This includes diagnostic interpretation and treatment plan. Patient does have cellulitis of his left hand with several puncture wounds from dog bite 48 hours ago. There is a puncture wound on the left palmar aspect again index and middle finger. There is concern for possible flexor tenosynovitis of the index finger as this does have some fusiform swelling, held in flexion, pain with extension, and pain with palpation of the flexor tendon. Case was discussed in detail with Dr. Garcia, who will admit and agrees with IV antibiotics, Unasyn are similar. Patient was updated on results and plan. (Cristian Castaneda) 54-year-old male patient no pertinent past history presents ED for chief complaint of dog bite to left hand. Patient reports that 2 days ago his 2 dogs were fighting he went to separate them and he was bit by one of his dogs in the left hand. Reports this is a large dog approximately 85 pounds. Since it is up-to-date on all shots. States that now hand is swollen painful. Denies any other complaints. Pt VSS, afebrile. Physical exam displayed: Dorsum of hand is erythematous and edematous. Index finger is in a flexed position, uniform swelling over flexor sheath, pain with passive extension. Multiple bite blancas noted. No open. Laboratory investigations displayed mild leukocytosis. Plain film displayed soft tissue swelling, possible soft tissue air bubbles. There is concern for toxic tenosynovitis. Patient is she on vancomycin and Zosyn, will be admitted for orthopedic evaluation. Case discussed with Dr. Castaneda. Discussed case with Dr. Garcia who is agreeable to plan. Tetanus updated. (Wiliam Giang) - Lab Data Lab Results 01/21/20 01/21/20 01/21/20 Range/Units 22:22 22:22 22:22 WBC 11.0 H (3.8-10.6) k/uL RBC 4.50 (4.30-5.90) m/uL Hgb 13.6 (13.0-17.5) gm/dL Hct 38.7 L (39.0-53.0) % MCV 86.0 (80.0-100.0) fL MCH 30.1 (25.0-35.0) pg MCHC 35.0 (31.0-37.0) g/dL RDW 12.9 (11.5-15.5) % Plt Count 228 (150-450) k/uL Neutrophils % 81 % Lymphocytes % 12 % Monocytes % 4 % Eosinophils % 1 % Basophils % 0 % Neutrophils # 8.9 H (1.3-7.7) k/uL Lymphocytes # 1.3 (1.0-4.8) k/uL Monocytes # 0.5 (0-1.0) k/uL Eosinophils # 0.1 (0-0.7) k/uL Basophils # 0.0 (0-0.2) k/uL Sodium 136 L (137-145) mmol/L Potassium 4.3 (3.5-5.1) mmol/L Chloride 104 (98-107) mmol/L Carbon Dioxide 23 (22-30) mmol/L Anion Gap 9 mmol/L BUN 21 H (9-20) mg/dL Creatinine 0.99 (0.66-1.25) mg/dL Est GFR (CKD-EPI)AfAm >90 (>60 ml/min/1.73 sqM) Est GFR (CKD-EPI)NonAf 85 (>60 ml/min/1.73 sqM) Glucose 224 H (74-99) mg/dL Plasma Lactic Acid James 0.9 (0.7-2.0) mmol/L Calcium 9.5 (8.4-10.2) mg/dL Total Bilirubin 0.6 (0.2-1.3) mg/dL AST 32 (17-59) U/L ALT 48 (4-49) U/L Alkaline Phosphatase 94 (38-126) U/L Total Protein 7.1 (6.3-8.2) g/dL Albumin 4.1 (3.5-5.0) g/dL Disposition <Cristian Castaneda - Last Filed: 01/21/20 22:55> Is patient prescribed a controlled substance at d/c from ED?: No <Wiliam Giang - Last Filed: 01/21/20 23:22> Clinical Impression: Flexor tenosynovitis of finger, Dog bite, Infection of hand Disposition: ADMITTED IP TO THIS HOSP Condition: Serious Referrals: Marguerite Figueroa MD [Primary Care Provider] - 1-2 days
[2020-01-21] MEDS ORDERED: NALOXONE 0.4 MG/ML 1 ML VIAL IV PRN (23:19)
[2020-01-22 00:15] LABS: Glucose,Whole Blood 211 mg/dL (75-99)
[2020-01-22] MEDS: SODIUM CHLORIDE 0.9% 1,000 ML IV SCH ×3 (00:50→19:45)
[2020-01-22] MEDS ORDERED: PIPERACILLIN-TAZOBACTAM 3.375 GM in SODIUM CHLORIDE 0.9% 100 ML IVPB SCH (06:00)
[2020-01-22] MEDS: MORPHINE SULFATE 4 MG/ML SYRINGE IV PRN ×4 (06:08→20:29)
[2020-01-22 07:10] LABS: Glucose,Whole Blood 138 mg/dL (75-99)
[2020-01-22] MEDS: INSULIN ASPART (NovoLOG) 100 UNIT/ML VIAL SQ SCH ×4 (07:50→20:20)
[2020-01-22] MEDS: VANCOMYCIN 1,500 MG in SODIUM CHLORIDE 0.9% 250 ML IVPB SCH ×2 (10:12→23:31)
[2020-01-22 11:32] LABS: Glucose,Whole Blood 216 mg/dL (75-99)
[2020-01-22] MEDS: METOPROLOL SUCCINATE (ER) 25 MG TAB.ER.24H PO SCH (11:43)
--- NOTE | 2020-01-22 12:53 | P.HPOR ---
History of Present Illness H&P Date: 01/22/20 This patient is a 54-year-old male with past medical history of diabetes, hypertension, CAD status-post CABG in 2013 that presented to [facility] yesterday with complaints of left hand swelling. The patient states he was bit by his dog 3 days ago. He states his two dogs were fighting, and he tried to break them apart, and his dog ended up biting his hand. He states he poured hydrogen peroxide on the wound, and provided local wound care at home following the bite. He began to notice swelling and erythema around the area of the wound on Wednesday. He states he had amoxicillin 500 mg in his cabinet from a few years ago, and he began taking this. He states he took a total of 3 pills. He presented to [facility] yesterday due to increased pain and swelling of the left hand. He states the pain is currently localized to the palmar surface of the left index finger with radiation proximally. He states he cannot fully extend his index finger without severe pain.He denies additional complaints at this time. He states that the pain in his left hand, he otherwise feels well. He denies fevers, chills, nausea, vomiting. He denies numbness or tingling of the left upper extremity. Vital signs stable. Past Medical History Past Medical History: Coronary Artery Disease (CAD), CVA/TIA, Diabetes Mellitus, Hyperlipidemia Additional Past Medical History / Comment(s): TIA 10/08/19. Carotid stenosis. Edema legs when on feet for extended time. History of Any Multi-Drug Resistant Organisms: None Reported Past Surgical History: Appendectomy, Cholecystectomy, Coronary Bypass/CABG, Heart Catheterization, Orthopedic Surgery, Tonsillectomy Additional Past Surgical History / Comment(s): Bilateral knee surg 1989, Triple CABG 2013. Past Anesthesia/Blood Transfusion Reactions: No Reported Reaction Past Psychological History: No Psychological Hx Reported Smoking Status: Former smoker Past Alcohol Use History: None Reported Additional Past Alcohol Use History / Comment(s): Smoked 10 years, 1/2 ppd, quit 2003 Past Drug Use History: None Reported - Past Family History Father Family Medical History: Cancer Additional Family Medical History / Comment(s): skin CA Medications and Allergies Home Medications Medication Instructions Recorded Confirmed Type Atorvastatin [Lipitor] 40 mg PO DAILY 09/06/16 01/21/20 History Insulin Degludec [Tresiba 34 units SQ AC-BRKFST 09/04/19 01/21/20 History Flextouch U-200] Tadalafil [Cialis] 20 mg PO DIRECTED 09/04/19 01/21/20 History Clopidogrel Bisulfate [Plavix] 75 mg PO DAILY #30 tab 10/08/19 01/21/20 Rx Aspirin 81 mg PO DAILY 10/27/19 01/21/20 History Empagliflozin [Jardiance] 25 mg PO DAILY 10/27/19 01/21/20 History Metoprolol Succinate (ER) [Toprol 25 mg PO DAILY 10/27/19 01/21/20 History Xl] INSULIN ASPART (NovoLOG) [NovoLOG See Protocol SQ AC-TID PRN 01/21/20 01/21/20 History (formulary)] Allergies Allergy/AdvReac Type Severity Reaction Status Date / Time No Known Allergies Allergy Verified 01/21/20 23:34 Physical Examination On examination, the patient is sitting up in bed in no apparent distress. He is alert and oriented 3. His head appears normocephalic and atraumatic. His breathing appears unlabored. On inspection of the right upper extremity, there is no deformity or sign of trauma. On inspection of the left upper extremity, there is diffuse swelling and erythema of the left index finger and hand. There is small puncture wounds over the palmar surface between the index and middle fingers. There is no drainage from this wound. There is diffuse pain on palpation of the index finger and hand. There are no areas of fluctuance appreciated. Moderate pain on passive extension of the finger. Patient is able to actively flex and extend finger a small amount without pain. No pain with PROM of the wrist or elbow. No pain on palpation of the wrist, forearm, elbow. Motor and sensory function appear to be intact of the left upper extremity. Radial pulse palpable, the fingers and thumb are warm and well perfused with brisk capillary refill distally. Results Left hand x-ray 01/21/2020: No acute fractures or dislocations. No foreign bodies. Soft tissue swelling. - Labs Labs: Abnormal Lab Results - Last 24 Hours (Table) 01/21/20 01/21/20 01/22/20 Range/Units 22:22 22:22 00:14 WBC 11.0 H (3.8-10.6) k/uL Hct 38.7 L (39.0-53.0) % Neutrophils # 8.9 H (1.3-7.7) k/uL Sodium 136 L (137-145) mmol/L BUN 21 H (9-20) mg/dL Glucose 224 H (74-99) mg/dL POC Glucose (mg/dL) 211 H (75-99) mg/dL 01/22/20 01/22/20 Range/Units 07:07 11:30 WBC (3.8-10.6) k/uL Hct (39.0-53.0) % Neutrophils # (1.3-7.7) k/uL Sodium (137-145) mmol/L BUN (9-20) mg/dL Glucose (74-99) mg/dL POC Glucose (mg/dL) 138 H 216 H (75-99) mg/dL H & H 01/21/20 Range/Units 22:22 Hgb 13.6 (13.0-17.5) gm/dL Hct 38.7 L (39.0-53.0) % Result Diagrams: 01/21/20 22:22 01/21/20 22:22 Assessment and Plan Assessment: Cellulitis status-post dog bite Plan: - I discussed the clinical findings with the patient. I discussed the patient with Dr. Garcia. Recommended non-operative treatment at this time. - Continue IV antibiotics. We will continue to assess his response to IV antibiotics closely. I recommended the patient keep the left hand elevated above his heart for swelling control. - Pain control as needed. - Internal medicine consult for medical management. - We will re-assess the patient in the morning. He will be made NPO at midnight in case he requires operative debridement tomorrow. Patient discussed with Dr. Garcia.
[2020-01-22] MEDS: Empagliflozin [Jardiance] PO SCH (13:40)
[2020-01-22] MEDS: AMPICILLIN-SULBACTAM 3 GM in SODIUM CHLORIDE 0.9% 100 ML IVPB SCH ×2 (13:46→17:37)
[2020-01-22] MEDS: HEPARIN SODIUM,PORCINE 5,000 UNIT/ML 1 ML VIAL SQ SCH ×2 (13:47→20:20)
[2020-01-22 16:43] LABS: Glucose,Whole Blood 206 mg/dL (75-99)
[2020-01-22 20:12] LABS: Glucose,Whole Blood 210 mg/dL (75-99)
--- NOTE | 2020-01-22 22:33 | CONS ---
CONSULTATION DATE OF SERVICE: 01/22/2020 REASON FOR CONSULTATION: Advice regarding CAD, diabetes and other medical issues requested by Dr. Garcia. HISTORY OF PRESENT ILLNESS: This 54-year-old gentleman with a past medical history of multiple medical problems including history of CAD, CVA, diabetes, hypertension, hyperlipidemia, history of TIA, history of carotid stenosis, being followed by Dr. Figueroa in the outpatient setting apparently was trying to separate the fight between his 2 dogs which are not sick and the patient had suffered possibly accidental bites according to him on the left hand. The patient apparently washed hands in water and peroxide and subsequently patient has taken amoxicillin, which is available at home from the previous prescriptions at home. Because of lack of improvement and increased swelling, the patient came to [facility] and was admitted for further evaluation and treatment. The patient is unable to extend the whole hand. The patient also had significant swelling, orthopedic surgery evaluated the patient for possible cellulitis with possible tendon involvement, tenosynovitis also suspected. Hand x-ray showed soft tissue swelling and no significant bony abnormality. The patient being closely monitored at this time. White count is elevated at 11 and glucose also elevated to 25. Hemoglobin A1c is not available. There is no history of fever, rigors or chills at this time. No history of headache, loss of consciousness or seizures at this time. PAST MEDICAL HISTORY: History of CAD, CVA, TIA, diabetes, hyperlipidemia, history of TIA, appendectomy, CAD, CABG. MEDICATIONS: 1. NovoLog a.c. t.i.d. p.r.n. 2. Cialis 20 mg p.r.n. 3. Toprol-XL 25 mg p.o. daily. 4. Tresiba that is insulin degludec 34 units subcu breakfast. 5. Jardiance 25 mg p.o. daily. 6. Plavix 75 mg p.o. daily. 7. Lipitor 40 mg. 8. Aspirin 81 mg p.o. daily. ALLERGIES: None. FAMILY HISTORY: History of skin cancer in the family. SOCIAL HISTORY: Previous history of smoking. No history of current smoking or alcohol intake. REVIEW OF SYSTEMS: ENT: No diminished vision. No diminished hearing. CARDIOVASCULAR: No angina or palpitations. RESPIRATORY: No cough or hemoptysis. GI no nausea or vomiting. no dysuria. NERVOUS SYSTEM: No numbness or weakness. ALLERGY/IMMUNOLOGY: No asthma or hayfever. MUSCULOSKELETAL as mentioned earlier. HEMATOLOGY/ONCOLOGY: No history of anemia. ENDOCRINE: History of diabetes. CONSTITUTIONAL: As mentioned earlier. DERMATOLOGY: Negative. RHEUMATOLOGY: Negative. PSYCHIATRIC: As mentioned earlier. PHYSICAL EXAMINATION: The patient is alert and oriented times three. Pulse 78. Blood pressure 130/74, respiration 15, temperature 98 degrees, pulse ox 93% on room air. HEENT: Conjunctivae normal. Oral mucosa moist. NECK is no jugular venous distention. No carotid bruit. No lymph node enlargement. CARDIOVASCULAR: S1, S2 muffled. RESPIRATIONS: Breath sounds diminished in the bases. Scattered rhonchi and crackles. ABDOMEN: Soft, nontender. LEGS: No edema. No swelling. NERVOUS SYSTEM: Higher functions as mentioned earlier. Moves all four limbs. No focal motor or sensory deficits. SKIN as mentioned earlier. JOINTS no active deforming arthropathy. ASSESSMENT: Left hand significant swelling and erythema, severely painful in movements and movements significantly limited of all the fingers and also the patient had possibly puncture blancas on the dorsal and ventral aspects also. LABS: WBC 11 and hemoglobin 13.6. Sodium 136. Glucose noted. ASSESSMENT: 1. Acute cellulitis of the left hand status post dog bite. 2. Rule out abscess or tenosynovitis and tendinitis. 3. Increased WBC. 4. Hyponatremia. 5. Diabetes mellitus type 2. 6. History of cerebrovascular accident. 7. coronary artery disease. 8. Hyperlipidemia. 9. History of carotid stenosis. 10.History of appendectomy. 11.History of cholecystectomy. 12.History of coronary artery disease, coronary artery bypass grafting. 13.History of bilateral knee surgery. 14.Remote history of nicotine dependence. 15.Obesity with body mass of 31.7. 16.History of multiple antral ulcers, gastritis and hiatal hernia previously. 17.FULL CODE. RECOMMENDATIONS AND DISCUSSION: In this 54-year-old gentleman who presented with multiple complex medical issues, we will monitor the patient closely, continue the current medications, management and symptomatic treatment. Otherwise, at this time, I recommend continue broad spectrum IV antibiotics. I would recommend IV Unasyn and Orthopedic evaluation. Otherwise resume the home medications. Overall prognosis guarded because of multiple complex medical issues. We will obtain the cultures as well. A copy of this dictation being forwarded to Dr. Figueroa who is the primary physician. DVT prophylaxis. See orders. Medication reconciliation done. MMODL / IJN: [id number] /
[2020-01-23] MEDS: AMPICILLIN-SULBACTAM 3 GM in SODIUM CHLORIDE 0.9% 100 ML IVPB SCH ×5 (00:49→23:49)
[2020-01-23] MEDS: MORPHINE SULFATE 4 MG/ML SYRINGE IV PRN ×5 (00:59→23:08)
[2020-01-23] MEDS: SODIUM CHLORIDE 0.9% 1,000 ML IV SCH ×2 (05:43→17:37)
[2020-01-23 07:14] LABS: Glucose,Whole Blood 147 mg/dL (75-99)
[2020-01-23 08:04] LABS: African American GFR (CKD) >90 (>60 ml/min/1.73 sqM); Non-African American GFR(CKD) >90 (>60 ml/min/1.73 sqM)
[2020-01-23] MEDS: METOPROLOL SUCCINATE (ER) 25 MG TAB.ER.24H PO SCH (08:45)
[2020-01-23] MEDS: Empagliflozin [Jardiance] PO SCH (08:45)
[2020-01-23] MEDS: INSULIN DETEMIR (LEVEMIR) 100 UNIT/ML SYR SQ SCH (08:45)
[2020-01-23] MEDS: INSULIN ASPART (NovoLOG) 100 UNIT/ML VIAL SQ SCH ×4 (08:45→21:54)
[2020-01-23] MEDS: ATORVASTATIN 40 MG TAB PO SCH (08:45)
[2020-01-23] MEDS: VANCOMYCIN 1,500 MG in SODIUM CHLORIDE 0.9% 250 ML IVPB SCH ×2 (10:03→23:45)
--- NOTE | 2020-01-23 10:48 | P.PN ---
Subjective Progress Note Date: 01/23/20 Principal diagnosis: Left hand dog bite This patient is a 54-year-old male seen at bedside this am. We are following him for dog bite to the left hand. He continues to have pain at the left hand primarily at the base of the index finger. He states the swelling has improved a little over the past 24 hrs. He has been IV antibiotics and elevating it. He has not soaked it since Wednesday. He denies new complaints including numbness or tingling. He denies fever or chills. HX: The patient states he was bit by his dog last 01/19/2020. He states his two dogs were fighting, and he tried to break them apart, and his dog ended up biting his hand. He states he poured hydrogen peroxide on the wound, and provided local wound care at home following the bite. He began to notice swelling and erythema around the area of the wound on Wednesday. He states he had amoxicillin 500 mg in his cabinet from a few years ago, and he began taking this. He states he took a total of 3 pills. He presented to [facility] ER on Wednesday01/21/20 due to increased pain and swelling of the left hand. He states the pain is currently localized to the palmar surface of the left index finger with radiation proximally. He states he cannot fully extend his index finger without severe pain.He denies additional complaints at this time. He denies fevers, chills, nausea, vomiting. He denies numbness or tingling of the left upper extremity. Objective - Vital Signs Vital signs: Vital Signs Temp 98.3 F 01/23/20 06:00 Pulse 83 01/23/20 08:00 Resp 18 01/23/20 06:00 BP 137/69 01/23/20 06:00 Pulse Ox 95 01/23/20 06:00 Intake & Output 01/22/20 01/23/20 01/23/20 18:59 06:59 18:59 Intake Total 980 400 Balance 980 400 Intake: Oral 980 400 Other: # Voids 2 2 - Exam General: The patient is sitting up in bed in no apparent distress. He is alert and oriented 3. His head appears normocephalic and atraumatic. His breathing appears unlabored. On inspection of the left upper extremity, there is diffuse swelling/edema at the left hand and digits. There is mild erythema of the left index finger and hand. No signs of progression of erythema or streaking. There is small puncture wounds over the palmar surface between the index and middle fingers. There is mild serous drainage from this wound. There is pain on palpation of the index finger primarily at the base. There are no areas of fluctuance appreciated. Moderate pain on passive extension and flexion of the index finger. Patient is able to actively flex and extend finger a small amount without pain. No pain with PROM of the wrist or elbow. No pain on palpation of the wrist, forearm, elbow. Motor and sensory function appear to be intact of the left upper extremity. Radial pulse palpable, the fingers and thumb are warm and well perfused with brisk capillary refill distally. - Constitutional General appearance: Present: no acute distress - Labs CBC & Chem 7: 01/21/20 22:22 01/23/20 06:43 Labs: Abnormal Lab Results - Last 24 Hours (Table) 01/22/20 01/22/20 01/22/20 Range/Units 11:30 16:42 19:57 POC Glucose (mg/dL) 216 H 206 H 210 H (75-99) mg/dL 01/23/20 Range/Units 07:13 POC Glucose (mg/dL) 147 H (75-99) mg/dL Microbiology - Last 24 Hours (Table) 01/21/20 22:22 Blood Culture - Preliminary Blood No Growth after 24 hours Assessment and Plan (1) Dog bite Narrative/Plan: He has improved some and has remained afebrile with no signs of progressive infection. I don't see an area that requires immediate surgical intervention as of yet. He will continue on IV antibiotics and elevation. I also instructed he and his nurse to do warm soapy soaks for 30 mins three times per day. We will see him tomorrow morning, reassess and make further recommendations as appropriate. Current Visit: Yes Status: Acute Priority: Medium Code(s): W54.0XXA - BITTEN BY DOG, INITIAL ENCOUNTER SNOMED Code(s): 698460642 (2) Infection of hand Current Visit: Yes Status: Acute Priority: Medium Code(s): L08.9 - LOCAL INFECTION OF THE SKIN AND SUBCUTANEOUS TISSUE, UNSP SNOMED Code(s): 851403100 Time with Patient: Less than 30
[2020-01-23 11:53] LABS: Glucose,Whole Blood 127 mg/dL (75-99)
[2020-01-23] MEDS: HEPARIN SODIUM,PORCINE 5,000 UNIT/ML 1 ML VIAL SQ SCH ×2 (11:57→20:44)
[2020-01-23] MEDS ORDERED: LIDOCAINE 1% INJ 10MG/ML (20 ML MDV) ONE (14:34)
--- NOTE | 2020-01-23 14:44 | PN ---
PROGRESS NOTE DATE OF SERVICE: 01/23/2020 This is a 54-year-old gentleman who was admitted with significant infection of the left hand after a dog bite, being closely monitored at this time. Orthopedics is following the patient closely with conservative line of management. The patient is on IV antibiotics. No chest pain or palpitations. PHYSICAL EXAMINATION: Alert and oriented x3. Pulse is 83, blood pressure 137/69, respirations 18, temperature 98.3, pulse ox 94% on room air. HEENT: Conjunctivae normal. NECK: No jugular venous distention. CARDIOVASCULAR SYSTEM: S1, S2 normal. RESPIRATORY SYSTEM: Breath sounds diminished at the bases. No rhonchi. No crackles. Clear to auscultation. ABDOMEN: Soft, nontender. Examination of the left hand , seems to be infection and tenderness present. NERVOUS SYSTEM: No focal deficits. LABS: Glucose 147 and 137. Other labs reveal WBC 11 and sodium 136. ASSESSMENT: 1. Acute cellulitis of the left hand, status post dog bite with failure of outpatient treatment. 2. Rule out abscess in the hand or tenosynovitis. 3. Increased WBC. 4. Hyponatremia. 5. Diabetes mellitus type 2. 6. History of cerebrovascular accident. 7. History of coronary artery disease. 8. Hyperlipidemia. 9. History of carotid stenosis. 10.History of appendectomy. 11.History of cholecystectomy. 12.History of coronary artery disease with CABG. 13.History of bilateral knee surgery. 14.Remote history of nicotine dependence. 15.Obesity with body mass index of 31.7. 16.History of multiple antral ulcers, gastritis, and hiatal hernia previously. 17.FULL CODE. RECOMMENDATIONS AND DISCUSSION: I recommend to continue current medications, continue to monitor, continue symptomatic treatment. Continue with broad-spectrum IV antibiotics. Otherwise, closely monitor. We are also recommending Infectious Disease evaluation because of the continued fever and continue to monitor. We will follow the patient closely. The patient is currently on IV Unasyn. MMODL / IJN: [id number] /
[2020-01-23 17:06] LABS: Glucose,Whole Blood 160 mg/dL (75-99)
[2020-01-23] MEDS: HYDROcodone/APAP 7.5-325MG 1 EACH TAB PO PRN ×2 (17:09→20:42)
[2020-01-23 21:23] LABS: Glucose,Whole Blood 195 mg/dL (75-99)
[2020-01-23] MEDS ORDERED: VANCOMYCIN TROUGH DUE 1 EACH MISC MISCELLANE ONE (22:00)
--- NOTE | 2020-01-23 23:36 | P.CONS ---
History of Present Illness - Reason for Consult Consult date: 01/23/20 left hand dog bite cellulitis Requesting physician: Rufino Grey - Chief Complaint left hand pain and wound x few days - History of Present Illness Patient is a 54-year-old male presenting to the ER at [facility] on January 21, 2020 after apparently the patient sustained injury to the left hand from a dog bite and the patient was trying to separate 2 of his own dogs were fighting the patient did have injury to the dog 2 days before he presented to the hospital patient presented with significant swelling redness and throbbing pain to the left hand with intensity almost 7-8 out of 10 and radiation patient denies high-grade fever or any chills no chest pain shortness of breath or cough no vomiting or diarrhea on presentation the hospital the p atient did have moved from 11.3 he did have low-grade fever 100 F last night patient did have a white count of 11,000 on admission local wound culture has not been done patient did have x-rays of the hand did show soft tissue swelling no fracture seen in soft tissue air bubble patient has been treated with vancomycin and Unasyn infectious was consulted for further recommendation for antibiotic therapy. Review of Systems Positive point has been mentioned in HPI rest of the systems are negative Past Medical History Past Medical History: Coronary Artery Disease (CAD), CVA/TIA, Diabetes Mellitus, Hyperlipidemia Additional Past Medical History / Comment(s): TIA 10/08/19. Carotid stenosis. Edema legs when on feet for extended time. History of Any Multi-Drug Resistant Organisms: None Reported Past Surgical History: Appendectomy, Cholecystectomy, Coronary Bypass/CABG, Heart Catheterization, Orthopedic Surgery, Tonsillectomy Additional Past Surgical History / Comment(s): Bilateral knee surg 1989, Triple CABG 2013. Past Anesthesia/Blood Transfusion Reactions: No Reported Reaction Past Psychological History: No Psychological Hx Reported Smoking Status: Former smoker Past Alcohol Use History: None Reported Additional Past Alcohol Use History / Comment(s): Smoked 10 years, 1/2 ppd, quit 2003 Past Drug Use History: None Reported - Past Family History Father Family Medical History: Cancer Additional Family Medical History / Comment(s): skin CA Medications and Allergies Home Medications Medication Instructions Recorded Confirmed Type Atorvastatin [Lipitor] 40 mg PO DAILY 09/06/16 01/21/20 History Insulin Degludec [Tresiba 34 units SQ AC-BRKFST 09/04/19 01/21/20 History Flextouch U-200] Tadalafil [Cialis] 20 mg PO DIRECTED 09/04/19 01/21/20 History Clopidogrel Bisulfate [Plavix] 75 mg PO DAILY #30 tab 10/08/19 01/21/20 Rx Aspirin 81 mg PO DAILY 10/27/19 01/21/20 History Empagliflozin [Jardiance] 25 mg PO DAILY 10/27/19 01/21/20 History Metoprolol Succinate (ER) [Toprol 25 mg PO DAILY 10/27/19 01/21/20 History Xl] INSULIN ASPART (NovoLOG) [NovoLOG See Protocol SQ AC-TID PRN 01/21/20 01/21/20 History (formulary)] Allergies Allergy/AdvReac Type Severity Reaction Status Date / Time No Known Allergies Allergy Verified 01/21/20 23:34 Physical Exam Vitals: Vital Signs Temp Pulse Resp BP Pulse Ox 01/23/20 08:00 83 01/23/20 06:00 98.3 F 83 18 137/69 95 01/22/20 21:00 100.0 F H 81 18 150/73 93 L 01/22/20 14:50 98.0 F 78 15 130/74 93 L Intake and Output 01/22/20 01/23/20 01/23/20 22:59 06:59 14:59 Intake Total 640 0 Balance 640 0 Intake: Oral 640 0 Other: # Voids 1 2 2 GENERAL DESCRIPTION: Middle-aged male lying in bed, no distress. No tachypnea or accessory muscle of respiration use. HEENT: Shows Pallor , no scleral icterus. Oral mucous membrane is dry. NECK: Trachea central, no thyromegaly. LUNGS: Unlabored breathing. Clear to auscultation anteriorly. No wheeze or crackle. HEART: S1, S2, regular rate and rhythm. ABDOMEN: Soft, no tenderness , guarding or rigidity EXTREMITIES: Left hand did have significant deep wound between his second and third finger with surrounding swelling and redness minimal drainage cultures has been obtained sKIN: No rash, no masses palpable. NEUROLOGICAL: The patient is awake, alert, oriented x3, mood and affect normal. Results CBC & Chem 7: 01/21/20 22:22 01/23/20 06:43 Labs: Abnormal Lab Results - Last 24 Hours (Table) 01/22/20 01/22/20 01/23/20 Range/Units 16:42 19:57 07:13 POC Glucose (mg/dL) 206 H 210 H 147 H (75-99) mg/dL 01/23/20 Range/Units 11:52 POC Glucose (mg/dL) 127 H (75-99) mg/dL Microbiology - Last 24 Hours (Table) 01/21/20 22:22 Blood Culture - Preliminary Blood No Growth after 24 hours Assessment and Plan Assessment: -patient with left hand dog bite wound with secondary cellulitis will need to cover for polymicrobial yung of the dog mouth including gram-negative's anaerobes in addition to the gram-positive skin yung the patient himself wound seems to be superficial at this point not tracking down to the bone and x-ray did not show any bony changes clinically do not see any evidence of abscess or deep infection (1) Dog bite Current Visit: Yes Status: Acute Priority: Medium Code(s): W54.0XXA - BITTEN BY DOG, INITIAL ENCOUNTER SNOMED Code(s): 575720501 (2) Infection of hand Current Visit: Yes Status: Acute Priority: Medium Code(s): L08.9 - LOCAL INFECTION OF THE SKIN AND SUBCUTANEOUS TISSUE, UNSP SNOMED Code(s): 613538839 Plan: 1-wound culture has been obtained to guide further antibiotic therapy 2-vancomycin pharmacy to dose her with a target trough of 15 while watching her kidney function and Vanco trough closely. 3-Unasyn 3 g every 6 hours 4-Aquacel silver packing of the wound daily We will follow on clinical condition and cultures to further adjust medication if needed Thank you for this consultation we will follow the patient along with you Time with Patient: Greater than 30
[2020-01-24] MEDS: HYDROcodone/APAP 7.5-325MG 1 EACH TAB PO PRN ×4 (02:24→21:18)
[2020-01-24] MEDS: SODIUM CHLORIDE 0.9% 1,000 ML IV SCH ×3 (02:26→21:27)
[2020-01-24] MEDS: MORPHINE SULFATE 4 MG/ML SYRINGE IV PRN ×5 (03:52→20:26)
[2020-01-24] MEDS: AMPICILLIN-SULBACTAM 3 GM in SODIUM CHLORIDE 0.9% 100 ML IVPB SCH ×3 (06:08→17:04)
[2020-01-24 06:58] LABS: Glucose,Whole Blood 143 mg/dL (75-99)
[2020-01-24] MEDS: INSULIN ASPART (NovoLOG) 100 UNIT/ML VIAL SQ SCH ×4 (07:07→21:19)
[2020-01-24 08:06] LABS: Basophils % (A) 1 %; Eosinophils # (A) 0.1 k/uL (0-0.7); Eosinophils % (A) 1 %; HCT 35.2 % (39.0-53.0); HGB 12.2 gm/dL (13.0-17.5); Lymphocytes # (A) 1.4 k/uL (1.0-4.8); Lymphocytes % (A) 16 %; MCHC 34.6 g/dL (31.0-37.0); MCV 86.7 fL (80.0-100.0); Mean Platelet Volume 6.9; Monocytes # (A) 0.5 k/uL (0-1.0); Monocytes % (A) 5 %; Neutrophils # (A) 6.5 k/uL (1.3-7.7); Neutrophils % (A) 75 %; Platelet Count 241 k/uL (150-450); RBC 4.07 m/uL (4.30-5.90); RDW 12.6 % (11.5-15.5); WBC 8.7 k/uL (3.8-10.6)
[2020-01-24 08:12] LABS: ALT 67 U/L (4-49); AST 55 U/L (17-59); African American GFR (CKD) >90 (>60 ml/min/1.73 sqM); Albumin 3.1 g/dL (3.5-5.0); Alkaline Phosphatase 153 U/L (38-126); Anion Gap 10 mmol/L; Blood Urea Nitrogen 16 mg/dL (9-20); Calcium 8.8 mg/dL (8.4-10.2); Carbon Dioxide 21 mmol/L (22-30); Chloride 104 mmol/L (98-107); Glucose 135 mg/dL (74-99); Non-African American GFR(CKD) >90 (>60 ml/min/1.73 sqM); Potassium 4.3 mmol/L (3.5-5.1); Sodium 135 mmol/L (137-145); Total Bilirubin 0.7 mg/dL (0.2-1.3); Total Protein 5.9 g/dL (6.3-8.2)
[2020-01-24] MEDS: METOPROLOL SUCCINATE (ER) 25 MG TAB.ER.24H PO SCH (08:24)
[2020-01-24] MEDS: ATORVASTATIN 40 MG TAB PO SCH (08:24)
[2020-01-24] MEDS: HEPARIN SODIUM,PORCINE 5,000 UNIT/ML 1 ML VIAL SQ SCH ×2 (08:24→20:21)
[2020-01-24] MEDS: INSULIN DETEMIR (LEVEMIR) 100 UNIT/ML SYR SQ SCH (08:26)
[2020-01-24] MEDS: Empagliflozin [Jardiance] PO SCH (08:29)
[2020-01-24] MEDS: VANCOMYCIN 1,750 MG in SODIUM CHLORIDE 0.9% 500 ML 500 ML IVPB SCH ×2 (09:01→20:31)
[2020-01-24 11:25] LABS: Glucose,Whole Blood 126 mg/dL (75-99)
--- NOTE | 2020-01-24 11:31 | P.PN ---
Progress Note - Text Progress Note Date: 01/24/20 Orthopedics: History of present illness: Patient is a pleasant 34-year-old male who is seen standing bedside for further evaluation in regards to his left hand and fingers. Patient had originally presented to [facility] emergency department after increasing pain and swelling in the left hand after a dog bite. Yesterday he underwent a bedside incision and drainage. Since that time he feels his pain at the base of his left index finger has improved. He does continue to have some pain here. He does have some drainage. He is continuing with daily soaks 3 times per day. He does have better range of motion of the left index finger. He continues with vancomycin IV. Patient does have a medical history which includes diabetes, hypertension, and coronary artery disease status post CABG performed in 2013. Patient currently denies nausea, vomiting, fever, chills. He has no other complaints at bedside. He is active range of motion of the left shoulder and elbow without difficulty. Patient has been seen by infectious disease as well. Patient has been started on Unasyn. Cultures are currently pending. Physical Exam: Patient is awake, alert, and oriented 3 Vital signs stable Good chest excursion with deep inspiration and expiration Dressing is removed over the web spacing between the left index finger and middle finger Evidence of an open incisional wound at the base of the left index finger was s ome mild purulent discharge No significant active bleeding from the incision site Evidence of firmness to palpation on the ulnar side of the left hand at the metacarpal phalangeal joint of the left index finger Some evidence of erythema over the palmar side and posterior aspect of the left hand No erythema extending into the left wrist or forearm No significant erythema in the left thumb, ring finger, orthopedic hand Mild erythema in the left ring finger Patient is able to perform some active flexion and extension of the left index finger Evidence of multiple scabbed over bite blancas over the left hand most significant at the index finger Assessment: Cellulitis of the left hand and index finger Infection at the base of the left index finger Status post dog bite Left hand and index finger pain Status post bedside irrigation and drainage performed on 01/23/2020 Diabetes Hypertension Coronary artery disease status post CABG performed in 2013 Plan: 1. Patient has been discussed in detail Dr. Lucio Garcia. At this time, we will plan to continue with daily soaks 3 times a day. We are not currently planning for surgical intervention at this time. Patient was nothing by mouth. Patient may now maintain a diet and eat today. He will continue vancomycin as scheduled IV until tomorrow, 01/25/2020. If the patient continues to improve, we will plan for discharge home tomorrow with the patient to be discharged with oral antibiotics of Augmentin 875/125 every 12 hours over the next 10 days. A prescription has been prescribed and sent via electronic vice president education to his pharmacy to his preferred pharmacy for 1 tablet twice a day every 12 hours, dispensed #20. We will continue to follow patient closely. Patient should continue to avoid any excessive activities with the left upper extremity. 2. Patient will continue be seeing him by medicine for treatment and evaluation of his other medical diagnoses. 3. Patient will continue be seen and examined by Dr. De Santiago and infectious disease who may adjust his IV antibiotic medications at his discretion.
--- NOTE | 2020-01-24 12:18 | P.PN ---
Subjective Progress Note Date: 01/24/20 Principal diagnosis: This is a 54-year-old male who was recently admitted with significant infection of the left hand status post dog bite and is being closely monitored. Following with orthopedic surgery and infectious disease. Patient remains on IV antibiotics in the form of Unasyn and Vanco and will continue at this time. Patient underwent a bedside incision and drainage yesterday with orthopedics. Patient continues to have some erythema and swelling noted to the left hand also states is slightly improved and he is feeling his digits and is able to have more movement noted. Multiple wounds noted to the outer surface of the left hand and gauze and drainage dressing recently changed status post being soaked is currently dry and intact. No reports of chest pain, shortness of breath, or palpitations. Patient is afebrile. No reports of nausea or vomiting and jovanni ent is tolerating diet. Objective - Vital Signs Vital signs: Vital Signs Temp 97.9 F 01/24/20 07:00 Pulse 79 01/24/20 08:00 Resp 18 01/24/20 08:00 BP 135/73 01/24/20 07:00 Pulse Ox 95 01/24/20 07:00 Intake & Output 01/23/20 01/24/20 01/24/20 18:59 06:59 18:59 Other: Voiding Method Toilet Toilet # Voids 2 1 - Exam Gen: This is a 54-year-old male sitting up in the chair, awake, alert and oriented 3, well-developed, well-nourished HEENT: Head is atraumatic, normocephalic. Pupils equal, round. Sclerae is anicteric. NECK: Supple. No JVD. No lymphadenopathy. No thyromegaly. LUNGS: Clear to auscultation. No wheezes or rhonchi. No intercostal retr actions. HEART: Regular rate and rhythm. No murmur. ABDOMEN: Soft. Bowel sounds are present. No masses. No tenderness. EXTREMITIES: No pedal edema. No calf tenderness. Left hand with significant s welling and multiple scabs noted to the outer surface status post dog bites along with the incision between third and fourth finger with a dry dressing. Erythema slightly improved of the left hand. NEUROLOGICAL: Patient is awake, alert and oriented x3. Cranial nerves 2 through 12 are grossly intact. - Labs CBC & Chem 7: 01/24/20 07:00 01/24/20 07:00 Labs: Abnormal Lab Results - Last 24 Hours (Table) 01/23/20 01/23/20 01/24/20 Range/Units 17:05 21:22 06:57 RBC (4.30-5.90) m/uL Hgb (13.0-17.5) gm/dL Hct (39.0-53.0) % Sodium (137-145) mmol/L Carbon Dioxide (22-30) mmol/L Glucose (74-99) mg/dL POC Glucose (mg/dL) 160 H 195 H 143 H (75-99) mg/dL ALT (4-49) U/L Alkaline Phosphatase (38-126) U/L Total Protein (6.3-8.2) g/dL Albumin (3.5-5.0) g/dL 01/24/20 01/24/20 01/24/20 Range/Units 07:00 07:00 11:23 RBC 4.07 L (4.30-5.90) m/uL Hgb 12.2 L (13.0-17.5) gm/dL Hct 35.2 L (39.0-53.0) % Sodium 135 L (137-145) mmol/L Carbon Dioxide 21 L (22-30) mmol/L Glucose 135 H (74-99) mg/dL POC Glucose (mg/dL) 126 H (75-99) mg/dL ALT 67 H (4-49) U/L Alkaline Phosphatase 153 H (38-126) U/L Total Protein 5.9 L (6.3-8.2) g/dL Albumin 3.1 L (3.5-5.0) g/dL Microbiology - Last 24 Hours (Table) 01/21/20 22:22 Blood Culture - Preliminary Blood No Growth after 48 hours 01/23/20 13:46 Gram Stain - Preliminary Hand - Left Wound Culture - Preliminary Assessment and Plan Assessment: Acute cellulitis of the left hand, status post dog bite with failure of outpatient treatment Rule out abscess in the hand or tenosynovitis Increased white blood count, improved Hyponatremia Diabetes mellitus type 2 History of CVA History of coronary artery disease hyperlipidemia History of carotid stenosis History of coronary artery disease with CABG Remote history of nicotine dependence Obesity with body mass index of 31.7 Full code Plan: Patient currently remains on IV antibiotics in the form of Unasyn and vancomycin and will continue at this time. Patient underwent bedside incision and drainage of the left hand status post dog bite with orthopedics yesterday and continues to have some swelling although states the pain has slightly improved. Patient is to continue with daily soaks 3 times daily. Patient is able to move his fingers more and some of the swelling has subsided. Infectious disease is following as well. Awaiting wound culture at this time. Will continue to follow. Further recommendations to follow.
[2020-01-24 16:28] LABS: Glucose,Whole Blood 255 mg/dL (75-99)
--- NOTE | 2020-01-24 16:38 | PN ---
PROGRESS NOTE DATE OF SERVICE: 01/24/2020 REASON FOR FOLLOWUP: Left hand dog bite with cellulitis. INTERVAL HISTORY: The patient is currently afebrile, has been breathing comfortably. The patient did have significant swelling and redness to the left hand with drainage. Her pain is currently controlled. Denies having any chest pain. No shortness of breath or cough. PHYSICAL EXAMINATION: Blood pressure 135/73 with a pulse of 79, temperature is 97.9. He is 95% on room air. General description is a middle-aged male, up in the chair in no distress. RESPIRATORY SYSTEM: Unlabored breathing, clear to auscultation anteriorly. HEART: S1, S2. Regular rate and rhythm. ABDOMEN: Soft, no tenderness. Left hand swelling with minimal improvement with slight drainage. LABS: Hemoglobin is 12.1, white count 8.7, BUN of 16, creatinine 0.81. DIAGNOSTIC IMPRESSION AND PLAN: Patient with left hand dog bite with cellulitis with concern for possible osteomyelitis. Patient is currently covered with Unasyn and vancomycin to continue waiting for the culture to finalize to determine discharge antibiotics. May benefit from outpatient IV antibiotic on discharge with coverage currently being checked. Continue supportive care. MMODL / IJN: [id number] /
[2020-01-24 20:32] LABS: Glucose,Whole Blood 253 mg/dL (75-99)
[2020-01-25] MEDS: AMPICILLIN-SULBACTAM 3 GM in SODIUM CHLORIDE 0.9% 100 ML IVPB SCH ×5 (00:42→23:33)
[2020-01-25] MEDS: MORPHINE SULFATE 4 MG/ML SYRINGE IV PRN ×3 (00:42→19:52)
[2020-01-25] MEDS: HYDROcodone/APAP 7.5-325MG 1 EACH TAB PO PRN ×4 (02:30→20:56)
[2020-01-25 06:53] LABS: Glucose,Whole Blood 165 mg/dL (75-99)
[2020-01-25] MEDS: Empagliflozin [Jardiance] PO SCH (07:28)
[2020-01-25] MEDS: HEPARIN SODIUM,PORCINE 5,000 UNIT/ML 1 ML VIAL SQ SCH ×2 (07:28→19:49)
[2020-01-25] MEDS: SODIUM CHLORIDE 0.9% 1,000 ML IV SCH ×3 (07:30→23:34)
[2020-01-25] MEDS: INSULIN DETEMIR (LEVEMIR) 100 UNIT/ML SYR SQ SCH (07:30)
[2020-01-25] MEDS: INSULIN ASPART (NovoLOG) 100 UNIT/ML VIAL SQ SCH ×4 (07:37→20:56)
[2020-01-25] MEDS: ATORVASTATIN 40 MG TAB PO SCH (07:59)
[2020-01-25] MEDS: METOPROLOL SUCCINATE (ER) 25 MG TAB.ER.24H PO SCH (07:59)
[2020-01-25] MEDS: VANCOMYCIN 1,750 MG in SODIUM CHLORIDE 0.9% 500 ML 500 ML IVPB SCH ×2 (08:01→19:52)
[2020-01-25 08:35] LABS: African American GFR (CKD) >90 (>60 ml/min/1.73 sqM); Anion Gap 10 mmol/L; Blood Urea Nitrogen 19 mg/dL (9-20); Carbon Dioxide 25 mmol/L (22-30); Chloride 102 mmol/L (98-107); Glucose 162 mg/dL (74-99); Non-African American GFR(CKD) >90 (>60 ml/min/1.73 sqM); Potassium 4.2 mmol/L (3.5-5.1); Sodium 137 mmol/L (137-145)
[2020-01-25 08:38] LABS: Basophils % (A) 0 %; Eosinophils # (A) 0.3 k/uL (0-0.7); Eosinophils % (A) 4 %; HCT 37.4 % (39.0-53.0); HGB 12.6 gm/dL (13.0-17.5); Lymphocytes # (A) 1.3 k/uL (1.0-4.8); Lymphocytes % (A) 15 %; MCH 29.7 pg (25.0-35.0); MCHC 33.8 g/dL (31.0-37.0); MCV 87.8 fL (80.0-100.0); Mean Platelet Volume 7.3; Monocytes # (A) 0.6 k/uL (0-1.0); Monocytes % (A) 6 %; Neutrophils # (A) 6.6 k/uL (1.3-7.7); Neutrophils % (A) 74 %; Platelet Count 261 k/uL (150-450); RBC 4.26 m/uL (4.30-5.90); RDW 12.6 % (11.5-15.5)
[2020-01-25 11:28] LABS: Glucose,Whole Blood 218 mg/dL (75-99)
--- NOTE | 2020-01-25 14:43 | P.PN ---
Subjective Progress Note Date: 01/25/20 Principal diagnosis: This is a 54-year-old male who was recently admitted with significant infection of the left hand status post dog bite and is being closely monitored. Following with orthopedic surgery and infectious disease. Patient remains on IV antibiotics in the form of Unasyn and Vanco and will continue at this time. Patient underwent a bedside incision and drainage yesterday with orthopedics. Patient continues to have some erythema and swelling noted to the left hand also states is slightly improved and he is feeling his digits and is able to have more movement noted. Multiple wounds noted to the outer surface of the left hand and gauze and drainage dressing recently changed status post being soaked is currently dry and intact. No reports of chest pain, shortness of breath, or palpitations. Patient is afebrile. No reports of nausea or vomiting and jovanni ent is tolerating diet. 01/25/2020 Patient is seen and evaluated in follow-up today stating that his hand swelling continues to improve and continues with drainage at the incision site. Patient states his mobility of his fingers has improved as well. Infectious disease is following and patient remains on Unasyn and vancomycin at this time. Patient denies any chest pain, shortness of breath, or palpitations. Afebrile. No reports of nausea or vomiting and patient is tolerating diet. Patient states he would really like to go home soon. Will continue to follow. Objective - Vital Signs Vital signs: Vital Signs Temp 98.5 F 01/25/20 07:00 Pulse 70 01/25/20 07:00 Resp 16 01/25/20 07:00 BP 145/77 01/25/20 07:00 Pulse Ox 95 01/25/20 07:00 Intake & Output 01/24/20 01/25/20 01/25/20 18:59 06:59 18:59 Intake Total 600 Balance 600 Intake: Intake, IV Titration 600 Amount Ampicillin-Sulbactam 3 gm 100 In Sodium Chloride 0.9% 100 ml @ 200 mls/hr IVPB Q6HR [facility] Rx#:[id number] Vancomycin 1,750 mg In 500 Sodium Chloride 0.9% 500 ml 500 ml @ 167 mls/hr IVPB Q12H [facility]UL Rx#: [id number] Other: Voiding Method Toilet Toilet Toilet # Voids 2 - Exam Gen: This is a 54-year-old male sitting up in bed, awake, alert and oriented 3, well-developed, well-nourished HEENT: Head is atraumatic, normocephalic. Pupils equal, round. Sclerae is anicteric. NECK: Supple. No JVD. No lymphadenopathy. No thyromegaly. LUNGS: Clear to auscultation. No wheezes or rhonchi. No intercostal retractions. HEART: Regular rate and rhythm. No murmur. ABDOMEN: Soft. Bowel sounds are present. No masses. No tenderness. EXTREMITIES: No pedal edema. No calf tenderness. Left hand with significant swelling and multiple scabs noted to the outer surface status post dog bites along with the incision between third and fourth finger with a dry dressing. Erythema and swelling continues to improve with some dried crusted drainage noted at the midline incision. NEUROLOGICAL: Patient is awake, alert and oriented x3. Cranial nerves 2 through 12 are grossly intact. - Labs CBC & Chem 7: 01/25/20 07:25 01/25/20 07:25 Labs: Abnormal Lab Results - Last 24 Hours (Table) 01/24/20 01/24/20 01/25/20 Range/Units 16:26 20:30 06:52 RBC (4.30-5.90) m/uL Hgb (13.0-17.5) gm/dL Hct (39.0-53.0) % Glucose (74-99) mg/dL POC Glucose (mg/dL) 255 H 253 H 165 H (75-99) mg/dL 01/25/20 01/25/20 01/25/20 Range/Units 07:25 07:25 11:27 RBC 4.26 L (4.30-5.90) m/uL Hgb 12.6 L (13.0-17.5) gm/dL Hct 37.4 L (39.0-53.0) % Glucose 162 H (74-99) mg/dL POC Glucose (mg/dL) 218 H (75-99) mg/dL Microbiology - Last 24 Hours (Table) 01/23/20 13:46 Gram Stain - Final Hand - Left Wound Culture - Final 01/21/20 22:22 Blood Culture - Preliminary Blood No Growth after 72 hours Assessment and Plan Assessment: Acute cellulitis of the left hand, status post dog bite with failure of outpatient treatment Rule out abscess in the hand or tenosynovitis Increased white blood count, improved Hyponatremia, improved Diabetes mellitus type 2 History of CVA History of coronary artery disease hyperlipidemia History of carotid stenosis History of coronary artery disease with CABG Remote history of nicotine dependence Obesity with body mass index of 31.7 Full code Plan: Patient currently remains on IV antibiotics in the form of Unasyn and vancomycin and will continue at this time. Patient is able to move his fingers more and continues to show improvement of the erythema and swelling . Infectious disease is following as well. Awaiting wound culture at this time. Will continue to follow. Further recommendations to follow.
[2020-01-25 16:34] LABS: Glucose,Whole Blood 206 mg/dL (75-99)
--- NOTE | 2020-01-25 18:05 | P.PN ---
Subjective Progress Note Date: 01/25/20 This patient is a 54-year-old male with past medical history of diabetes, hypertension, CAD status-post CABG in 2013 that presented to [facility] yesterday with complaints of left hand swelling. The patient states he was bit by his dog 3 days ago. He states his two dogs were fighting, and he tried to break them apart, and his dog ended up biting his hand. He states he poured hydrogen peroxide on the wound, and provided local wound care at home following the bite. He began to notice swelling and erythema around the area of the wound on Wednesday. He states he had amoxicillin 500 mg in his cabinet from a few years ago, and he began taking this. He states he took a total of 3 pills. He presented to [facility] yesterday due to increased pain and swelling of the left hand. He states the pain is currently localized to the palmar surface of the left index finger with radiation proximally. He states he cannot fully extend his index finger without severe pain. He denies additional complaints at this time. Patient underwent a bedside incision and drainage on 01/23/20 by Rufino Grey PA-C. 01/25/20: Patient is examined bedside this afternoon with Dr. Sosa. The patient states he continues to experience pain in the left hand although it has improved drastically. He can perform ROM of the left index finger with minimal pain. He notes he has been soaking the hand in warm, soapy water multiple times a day. He also has noticed drainage expressed from the I & D site. He is receiving IV vancomycin under the discretion of infectious disease. Patient will have a PICC line placed tomorrow for outpatient antibiotics, per infectious disease. He denies additional complaints today. Patient denies fevers, chills, nausea, vomiting. Vital signs stable. Objective - Vital Signs Vital signs: Vital Signs Temp 98.1 F 01/25/20 14:55 Pulse 60 01/25/20 14:55 Resp 17 01/25/20 14:55 BP 158/87 01/25/20 14:55 Pulse Ox 98 01/25/20 14:55 Intake & Output 01/24/20 01/25/20 01/25/20 18:59 06:59 18:59 Intake Total 600 540 Balance 600 540 Intake: Intake, IV Titration 600 Amount Ampicillin-Sulbactam 3 gm 100 In Sodium Chloride 0.9% 100 ml @ 200 mls/hr IVPB Q6HR AZUL Rx#:[id number] Vancomycin 1,750 mg In 500 Sodium Chloride 0.9% 500 ml 500 ml @ 167 mls/hr IVPB Q12H AZUL Rx#: [id number] Oral 540 Other: Voiding Method Toilet Toilet Toilet # Voids 2 - Exam The patient is sitting up in the bedside chair in no apparent distress. He is alert and oriented 3. On inspection of the left hand, there is diffuse swelling/edema at the left hand and digits, primarily the index finger. There is mild erythema of the left index finger and hand. No signs of progression of erythema or streaking. There is an open incision over the palmar base of the index finger with mild active serous drainage. There is pain on palpation of the index finger primarily at the base. There a superficial area of fluctuance over the proximal index finger. Minimal pain on passive extension and flexion of the index finger. Patient is able to actively flex and extend finger a small amount without pain. No pain with PROM of the wrist or elbow. No pain on palpation of the wrist, forearm, elbow. Motor and sensory function appear to be intact of the left upper extremity. Radial pulse palpable, the fingers and thumb are warm and well perfused with brisk capillary refill distally. - Labs CBC & Chem 7: 01/25/20 07:25 01/25/20 07:25 Labs: Abnormal Lab Results - Last 24 Hours (Table) 01/24/20 01/25/20 01/25/20 Range/Units 20:30 06:52 07:25 RBC (4.30-5.90) m/uL Hgb (13.0-17.5) gm/dL Hct (39.0-53.0) % Glucose 162 H (74-99) mg/dL POC Glucose (mg/dL) 253 H 165 H (75-99) mg/dL 01/25/20 01/25/20 01/25/20 Range/Units 07:25 11:27 16:32 RBC 4.26 L (4.30-5.90) m/uL Hgb 12.6 L (13.0-17.5) gm/dL Hct 37.4 L (39.0-53.0) % Glucose (74-99) mg/dL POC Glucose (mg/dL) 218 H 206 H (75-99) mg/dL Microbiology - Last 24 Hours (Table) 01/23/20 13:46 Gram Stain - Final Hand - Left Wound Culture - Final 01/21/20 22:22 Blood Culture - Preliminary Blood No Growth after 72 hours Assessment and Plan Assessment: Cellulitis status-post dog bite, left hand Plan: -The clinical findings were discussed with the patient and Dr. Sosa. Recommended we continue with non-operative treatment at this time. There is a superficial area of fluctuance of the index finger today on exam, which was lanced bedside by Dr. Sosa. - Continue IV antibiotics under the discretion of infectious disease. There are plans for a PICC line to be placed tomorrow. - Continue local wound care, including warm water soaks 3-4 times daily, with warm saline and betadine. Elevation for swelling control. - Pain management as needed. - Medical management per internal medicine team. - Possible discharge home tomorrow if patient's clinical condition continues to improve, PICC line is placed, and patient obtains clearance from internal medicine and infectious disease. Procedure: Under sterile technique, the base of the left index finger was prepped with Chloraprep. An 18 g needle was inserted into the superficial area of fluctuance, and serous fluid was expressed. The patient tolerated this well. The area was wrapped with gauze following the procedure.
[2020-01-25 20:53] LABS: Glucose,Whole Blood 244 mg/dL (75-99)
--- NOTE | 2020-01-25 21:36 | PN ---
PROGRESS NOTE DATE OF SERVICE: 01/25/2020 REASON FOR FOLLOWUP: Left hand dog bite cellulitis and abscess. INTERVAL HISTORY: The patient is currently afebrile, has been breathing comfortably. Overall pain and discomfort to the left hand is slightly decreased. Denies any chest pain or cough. No abdominal pain or diarrhea. PHYSICAL EXAMINATION: Blood pressure is 150/73 with a pulse of 82, temperature 98.9. He is 94% on room air. General description is a middle-aged male lying in bed in no distress. RESPIRATORY SYSTEM: Unlabored breathing. Clear to auscultation anteriorly. HEART: S1, S2. Regular rate and rhythm. ABDOMEN: Soft. No tenderness. Left hand swelling and redness have decreased. LABS: Hemoglobin is 12.6, white count 9.0. BUN of 19, creatinine 0.74. The wound culture is negative for a resistant pathogen. Blood culture negative. DIAGNOSTIC IMPRESSION AND PLAN: Patient with left hand dog bite cellulitis. The patient did have some clinical improvement on IV antibiotic. Culture negative for MRSA. We will discontinue the vancomycin. Continue with Unasyn. Will get a midline for outpatient IV Unasyn for at least 2 weeks. Continue with supportive care. MMODL / IJN: [id number] /
[2020-01-26] MEDS: MORPHINE SULFATE 4 MG/ML SYRINGE IV PRN (03:03)
[2020-01-26] MEDS: AMPICILLIN-SULBACTAM 3 GM in SODIUM CHLORIDE 0.9% 100 ML IVPB SCH ×2 (05:42→12:24)
[2020-01-26 06:48] LABS: Glucose,Whole Blood 189 mg/dL (75-99)
[2020-01-26] MEDS: HYDROcodone/APAP 7.5-325MG 1 EACH TAB PO PRN ×2 (07:25→12:29)
[2020-01-26] MEDS: METOPROLOL SUCCINATE (ER) 25 MG TAB.ER.24H PO SCH (07:26)
[2020-01-26] MEDS: ATORVASTATIN 40 MG TAB PO SCH (07:26)
[2020-01-26] MEDS: INSULIN ASPART (NovoLOG) 100 UNIT/ML VIAL SQ SCH ×2 (07:26→11:12)
[2020-01-26 07:29] VITALS: BP 117/74; PULSE 77; RESP 15; TEMP 98.2
[2020-01-26] MEDS: INSULIN DETEMIR (LEVEMIR) 100 UNIT/ML SYR SQ SCH (07:29)
[2020-01-26] MEDS: HEPARIN SODIUM,PORCINE 5,000 UNIT/ML 1 ML VIAL SQ SCH (07:29)
[2020-01-26] MEDS ORDERED: VANCOMYCIN TROUGH DUE 1 EACH MISC MISCELLANE ONE (08:00)
[2020-01-26 08:55] LABS: African American GFR (CKD) >90 (>60 ml/min/1.73 sqM); Non-African American GFR(CKD) >90 (>60 ml/min/1.73 sqM)
[2020-01-26] MEDS: Empagliflozin [Jardiance] PO SCH (10:29)
[2020-01-26 11:21] LABS: Glucose,Whole Blood 201 mg/dL (75-99)
--- NOTE | 2020-01-26 12:39 | P.DS ---
Providers Date of admission: 01/23/20 09:11 Expected date of discharge: 01/26/20 Attending physician: Lucio Garcia Consults: 01/22/20 10:01 Consult Physician Routine Consulting Provider: Kristopher Beatty Consult Reason/Comments: MEDICAL MANAGEMENT Do you want consulting provider notified?: Yes 01/23/20 13:24 Consult Physician Stat Consulting Provider: Lamberto De Santiago Consult Reason/Comments: infection of hand Do you want consulting provider notified?: Yes Primary care physician: Marguerite Figueroa - Hermann Diagnosis(es) (1) Left hand pain Current Visit: Yes Status: Acute (2) Finger pain, left Current Visit: Yes Status: Acute (3) Cellulitis of finger of left hand Current Visit: Yes Status: Acute (4) Cellulitis of hand, left Current Visit: Yes Status: Acute (5) Diabetes Current Visit: Yes Status: Acute (6) Hypertension Current Visit: Yes Status: Acute (7) Coronary artery disease Current Visit: Yes Status: Acute (8) History of coronary artery bypass graft Current Visit: Yes Status: Acute (9) Dog bite Current Visit: Yes Status: Acute Priority: Medium (10) Infection of hand Current Visit: Yes Status: Acute Priority: Medium Hospital Course: This is a pleasant 54-year-old male who presented with cellulitis of the left hand and index finger with an infection at the base of the left index finger status post dog bite on 01/21/2020. He presented to the emergency department for further evaluation. During his admission, he underwent a bedside irrigation and debridement on 01/23/2020. A superficial area of fluctuance of the left index finger was also drained on 01/25/2000 at the bedside. Patient continues to have some erythema and drainage from his incision site at the base of the left index finger. He has been seen by Dr. De Santiago in infectious disease. Currently, orthopedics is not planning for surgical intervention at the cellulitis/infection site. He is currently planning for midline PICC placement today as scheduled by Dr. De Santiago with plans for discharge home today with antibiotics to be monitored and controlled by Dr. De Santiago. Patient states his pain is adequately controlled with medications. He states with the medications he feels he can perform some active range of motion of the left index finger. He does not experience any pain at the left wrist, left elbow, or left shoulder. He does continue some erythema on the palmar side of the hand towards the thumb, index finger, and middle finger with some erythema on the backside of the hand as well. He does have some stiffness with range of motion of his left index finger. The multiple small wounds from the dog bite have scabbed over. He has 1 open wound at the site of the irrigation and debridement. Patient does feel his symptoms are controlled and he would be able to be discharged home today. He has continued with daily soaks 4 times per day. He would plan to continue with the soaks in the outpatient setting. Patient currently denies any nausea, vomiting, fever, or chills. Patient is eating and voiding freely wi thout difficulty. We discussed patient should continue with daily soaks in outpatient setting 4 times per day and continue with dressing changes as needed with a nonstick dressing and wrap to keep the wound site covered. He is encouraged to continue elevating the left lower upper extremity for comfort and support as needed. He should avoid lifting and heavy activities with the left upper extremity. We discussed patient will be cleared for discharge from an orthopedic standpoint pending placement of his midline PICC and clearance by Dr. De Santiago in infectious disease with appropriate prescribed antibiotic medications. Wound Gram stain final results were positive for gram positive cocci and gram- positive bacilli. Following discharge, patient will follow up with Dr. Fransisco Sosa at [facility] on 01/30/2020 Patient was previously prescribed Augmentin for oral antibiotics for the outpatient setting. We discussed the patient should not take this medication and he should follow the antibiotic guidelines as set forth by Dr. De Santiago. MAPS has been reviewed today, 01/26/2020, with an Overall Overdose Risk Score of 000. An "Opiod Start Talking" Form has been signed by the patient and myself in place in the patient's chart. A prescription has been written for [place] 7.5 mg/325 mg take 1 tablet every 4 hours as needed for pain, dispense #42. Physical Exam on day of discharge: Patient is awake, alert, and oriented 3 Vital signs stable Good chest excursion with deep inspiration and expiration Evidence of an open incisional wound at the base of the left index finger was some mild purulent discharge No significant active bleeding from the incision site Evidence of firmness to palpation on the ulnar side of the left hand at the metacarpal phalangeal joint of the left index finger Evidence of erythema over the palmar side and posterior aspect of the left hand No erythema extending into the left wrist or forearm No significant erythema extending into the left thumb, ring finger, or rest of the hand Mild erythema in the left ring finger medially Patient is able to perform some active flexion and extension of the left index finger Evidence of multiple scabbed over bite blancas over the left hand most significant at the index finger Assessment: Cellulitis of the left hand and index finger Infection at the base of the left index finger Status post dog bite Left hand and index finger pain Status post bedside irrigation and drainage performed on 01/23/2020 Diabetes Hypertension Coronary artery disease status post CABG performed in 2013 Procedures: Bedside irrigation and debridement on 01/23/2020 at the base of the left index Superficial area of fluctuance of the left index finger was drained on 01/25/2000 at the bedside Patient Condition at Discharge: Serious Plan - Discharge Summary Discharge Rx Participant: No New Discharge Prescriptions: New HYDROcodone/APAP 7.5-325MG [[place] 7.5-325] 1 each PO Q4HR PRN #42 tab PRN Reason: Pain No Action Atorvastatin [Lipitor] 40 mg PO DAILY Tadalafil [Cialis] 20 mg PO DIRECTED Insulin Degludec [Tresiba Flextouch U-200] 34 units SQ AC-BRKFST Clopidogrel Bisulfate [Plavix] 75 mg PO DAILY #30 tab Empagliflozin [Jardiance] 25 mg PO DAILY Metoprolol Succinate (ER) [Toprol Xl] 25 mg PO DAILY Aspirin 81 mg PO DAILY INSULIN ASPART (NovoLOG) [NovoLOG (formulary)] See Protocol SQ AC-TID PRN PRN Reason: high blood sugar Discharge Medication List Atorvastatin [Lipitor] 40 mg PO DAILY 09/06/16 [History] Insulin Degludec [Tresiba Flextouch U-200] 34 units SQ AC-BRKFST 09/04/19 [History] Tadalafil [Cialis] 20 mg PO DIRECTED 09/04/19 [History] Clopidogrel Bisulfate [Plavix] 75 mg PO DAILY #30 tab 10/08/19 [Rx] Aspirin 81 mg PO DAILY 10/27/19 [History] Empagliflozin [Jardiance] 25 mg PO DAILY 10/27/19 [History] Metoprolol Succinate (ER) [Toprol Xl] 25 mg PO DAILY 10/27/19 [History] INSULIN ASPART (NovoLOG) [NovoLOG (formulary)] See Protocol SQ AC-TID PRN 01/21/20 [History] HYDROcodone/APAP 7.5-325MG [[place] 7.5-325] 1 each PO Q4HR PRN #42 tab 01/26/20 [Rx] Follow up Appointment(s)/Referral(s): [facility], [NON-STAFF] - Marguerite Figueroa MD [Primary Care Provider] - 1-2 days Lucio Garcia MD [STAFF PHYSICIAN] - As Needed (Patient may follow-up with Dr. Lucio Garcia at [facility] as needed following discharge. ) Fransisco Sosa DO [Medical Doctor] - 01/30/20 (Patient may follow-up with Dr. Fransisco Sosa at [facility] on 01/26/2020) Activity/Diet/Wound Care/Special Instructions: 1. Keep dressing over the left hand, index finger, middle finger area clean, dry, and intact 2. Continue with daily dressing changes as needed over the left hand and over the incision site at the base of the left index finger 3. Continue with daily soaks 4 times per day 4. Avoid excessive activities the left upper extremity 5. May elevate the left upper extremity for comfort support as needed 6. Take medications as prescribed for pain control 7. Take antibiotic medication as prescribed by Dr. De Santiago in infectious disease 8. If the patient has exacerbation of pain or swelling he should contact [facility] at [phone] Discharge Disposition: HOME SELF-CARE
--- NOTE | 2020-01-26 14:21 | P.PN ---
Subjective Progress Note Date: 01/26/20 Principal diagnosis: This is a 54-year-old male who was recently admitted with significant infection of the left hand status post dog bite and is being closely monitored. Following with orthopedic surgery and infectious disease. Patient remains on IV antibiotics in the form of Unasyn and Vanco and will continue at this time. Patient underwent a bedside incision and drainage yesterday with orthopedics. Patient continues to have some erythema and swelling noted to the left hand also states is slightly improved and he is feeling his digits and is able to have more movement noted. Multiple wounds noted to the outer surface of the left hand and gauze and drainage dressing recently changed status post being soaked is currently dry and intact. No reports of chest pain, shortness of breath, or palpitations. Patient is afebrile. No reports of nausea or vomiting and jovanni ent is tolerating diet. 01/25/2020 Patient is seen and evaluated in follow-up today stating that his hand swelling continues to improve and continues with drainage at the incision site. Patient states his mobility of his fingers has improved as well. Infectious disease is following and patient remains on Unasyn and vancomycin at this time. Patient denies any chest pain, shortness of breath, or palpitations. Afebrile. No reports of nausea or vomiting and patient is tolerating diet. Patient states he would really like to go home soon. Will continue to follow. 01/26/2020 Patient seen in follow-up with no acute overnight issues. Erythema and swelling continues to improve and patient is awaiting a midline for IV antibiotic therapy in the outpatient setting. Patient will be discharged on IV Unasyn for at least 2 weeks and will have close follow-up with infectious disease at the wound care center. Currently no reports of chest pain, shortness of breath, or palpitations. Patient is afebrile. No reports of nausea or vomiting and patient is tolerating diet. Patient states his blood sugar normally runs in the 180s to 190s and is on long acting and will continue at this time. Patient is to continue with hand soaks and elevate the left upper extremity while at rest. Patient verbalized understanding. Patient states he will be going home today. Objective - Vital Signs Vital signs: Vital Signs Temp 98.2 F 01/26/20 07:00 Pulse 77 01/26/20 08:00 Resp 15 04/17/20 08:00 BP 117/74 01/26/20 07:00 Pulse Ox 96 01/26/20 07:00 Intake & Output 01/25/20 01/26/20 01/26/20 18:59 06:59 18:59 Intake Total 540 660 Balance 540 660 Intake: Oral 540 660 Other: Voiding Method Toilet Toilet Toilet # Voids 1 2 - Exam Gen: This is a 54-year-old male sitting up in bed, awake, alert and oriented 3, well-developed, well-nourished HEENT: Head is atraumatic, normocephalic. Pupils equal, round. Sclerae is anicteric. NECK: Supple. No JVD. No lymphadenopathy. No thyromegaly. LUNGS: Clear to auscultation. No wheezes or rhonchi. No intercostal retractions. HEART: Regular rate and rhythm. No murmur. ABDOMEN: Soft. Bowel sounds are present. No masses. No tenderness. EXTREMITIES: No pedal edema. No calf tenderness. Left hand with some swelling and multiple scabs noted to the outer surface status post dog bites along with the incision between third and fourth finger with a dry dressing. Erythema and swelling continues to improve with some dried crusted drainage noted at the midline incision. NEUROLOGICAL: Patient is awake, alert and oriented x3. Cranial nerves 2 through 12 are grossly intact. - Labs CBC & Chem 7: 01/25/20 07:25 01/26/20 08:10 Labs: Abnormal Lab Results - Last 24 Hours (Table) 01/25/20 01/25/20 01/26/20 Range/Units 16:32 20:51 06:47 POC Glucose (mg/dL) 206 H 244 H 189 H (75-99) mg/dL 01/26/20 Range/Units 11:20 POC Glucose (mg/dL) 201 H (75-99) mg/dL Microbiology - Last 24 Hours (Table) 01/21/20 22:22 Blood Culture - Preliminary Blood No Growth after 96 hours 01/23/20 13:46 Gram Stain - Final Hand - Left Wound Culture - Final Assessment and Plan Assessment: Acute cellulitis of the left hand, status post dog bite with failure of outpatient treatment Ruled out abscess in the hand or tenosynovitis Increased white blood count, improved Hyponatremia, improved Diabetes mellitus type 2 History of CVA History of coronary artery disease hyperlipidemia History of carotid stenosis History of coronary artery disease with CABG Remote history of nicotine dependence Obesity with body mass index of 31.7 Full code Plan: Patient currently remains on IV antibiotics in the form of Unasyn and awaiting to receive a midline for continued 2 weeks of IV antibiotic therapy in the outpatient setting. Will continue to follow during hospitalization. Further recommendations to follow. Patient states he will be discharged today after midline placement.
--- NOTE | 2020-01-26 16:36 | PN ---
PROGRESS NOTE DATE OF SERVICE: 01/26/2020 REASON FOR FOLLOWUP: Left hand dog bite with cellulitis. INTERVAL HISTORY: The patient was seen on rounds this morning. The patient was afebrile, overall pain and swelling to the left hand slightly decreased, drainage has decreased. No chest pain or cough. No abdominal pain or any diarrhea. PHYSICAL EXAMINATION: Blood pressure 130/74 with a pulse of 77, temperature 98.2, she is 96% on room air. General description is a middle-aged male, up in the bed, in no distress. RESPIRATORY SYSTEM: Unlabored breathing, clear to auscultation anteriorly. HEART: S1, S2. Regular rate and rhythm. Left hand swelling, redness, slightly decreased. DIAGNOSTIC IMPRESSION AND PLAN: Patient left hand dog bite with cellulitis in view of significant infection, the patient will get a mid line today and continue Unasyn 3 g q.8 hours for 2 weeks and close outpatient followup. MMODL / IJN: [id number] /
== END 2020-01-26 14:55 | disposition home health service (06) | DRG 603 ==
LOC: EC 21:18 → 6NMEDSUR 22:55 → OBSVTOIN 01-23 09:11 → 4SSUR 01-23 17:15
PROVIDERS: ADMIT Orthopaedic Surgery Sports Medicine; ATTEND Orthopaedic Surgery Sports Medicine
PROC: 0H9GXZZ Drainage of Left Hand Skin, External Approach (ICD-10-PCS; principal; 2020-01-23)
PROC: 05HD33Z Insertion of Infusion Device into Right Cephalic Vein, Percutaneous Approach (ICD-10-PCS; 2020-01-26 09:25)
DX: L03.012 Cellulitis of left finger (principal); L03.114 Cellulitis of left upper limb; E87.1 Hypo-osmolality and hyponatremia; E11.9 Type 2 diabetes mellitus without complications; E66.9 Obesity, unspecified; E78.5 Hyperlipidemia, unspecified; I10 Essential (primary) hypertension; I25.10 Atherosclerotic heart disease of native coronary artery without angina pectoris; S61.452A Open bite of left hand, initial encounter; I65.29 Occlusion and stenosis of unspecified carotid artery; K44.9 Diaphragmatic hernia without obstruction or gangrene; Z68.31 Body mass index [BMI] 31.0-31.9, adult; Z87.11 Personal history of peptic ulcer disease; Z95.1 Presence of aortocoronary bypass graft; Z90.49 Acquired absence of other specified parts of digestive tract; Z87.891 Personal history of nicotine dependence; Z86.73 Personal history of transient ischemic attack (TIA), and cerebral infarction without residual deficits; Z79.02 Long term (current) use of antithrombotics/antiplatelets; Z79.4 Long term (current) use of insulin; Z79.82 Long term (current) use of aspirin; Z79.899 Other long term (current) drug therapy; W54.0XXA Bitten by dog, initial encounter
CPT/HCPCS: 36410; 36415; 76937; 80048; 80053; 80202; 82565; 83605; 85025; 87040; 87070; 87205; 90471; 90715; 96365; 96367; 96375; 99285

== ENCOUNTER → 2021-01-13 | Outpatient (CLI) | payer BC ==
[2021-01-13 10:33] LABS: African American GFR (CKD) >90 (>60 ml/min/1.73 sqM); Anion Gap 8 mmol/L; Blood Urea Nitrogen 28 mg/dL (9-20); Carbon Dioxide 24 mmol/L (22-30); Chloride 105 mmol/L (98-107); Magnesium 2.2 mg/dL (1.6-2.3); Non-African American GFR(CKD) 84 (>60 ml/min/1.73 sqM); Potassium 5.5 mmol/L (3.5-5.1); Sodium 137 mmol/L (137-145)
[2021-01-13 11:56] LABS: Basophils # (A) 0.1 k/uL (0-0.2); Basophils % (A) 1 %; Eosinophils # (A) 0.5 k/uL (0-0.7); Eosinophils % (A) 4 %; HCT 45.6 % (39.0-53.0); HGB 15.8 gm/dL (13.0-17.5); Lymphocytes # (A) 2.3 k/uL (1.0-4.8); Lymphocytes % (A) 21 %; MCH 31.5 pg (25.0-35.0); MCHC 34.6 g/dL (31.0-37.0); MCV 90.9 fL (80.0-100.0); Monocytes # (A) 0.5 k/uL (0-1.0); Monocytes % (A) 5 %; Neutrophils # (A) 7.4 k/uL (1.3-7.7); Neutrophils % (A) 68 %; Platelet Count 289 k/uL (150-450); RBC 5.02 m/uL (4.30-5.90); WBC 10.9 k/uL (3.8-10.6)
== END | disposition home or self-care (01) ==
LOC: LABPAT 09:43
PROVIDERS: ATTEND Surgery
DX: Z01.818 Encounter for other preprocedural examination (principal); I65.21 Occlusion and stenosis of right carotid artery
CPT/HCPCS: 36415; 80051; 82565; 83735; 84520; 85025; 86850; 86900; 86901

== ENCOUNTER 2023-04-05 15:55 | Inpatient (IN) | payer BC ==
[2023-04-05] MEDS ORDERED: SODIUM CHLORIDE 0.9% 500 ML 500 ML IV STA (16:50)
[2023-04-05 17:17] LABS: Basophils # (A) 0.1 k/uL (0-0.2); Basophils % (A) 1 %; Eosinophils # (A) 0.3 k/uL (0-0.7); Eosinophils % (A) 4 %; HCT 41.8 % (39.0-53.0); HGB 14.3 gm/dL (13.0-17.5); Lymphocytes # (A) 2.4 k/uL (1.0-4.8); Lymphocytes % (A) 30 %; MCH 31.3 pg (25.0-35.0); MCHC 34.1 g/dL (31.0-37.0); Mean Platelet Volume 7.2; Monocytes # (A) 0.4 k/uL (0-1.0); Monocytes % (A) 5 %; Neutrophils # (A) 4.7 k/uL (1.3-7.7); Neutrophils % (A) 59 %; Platelet Count 294 k/uL (150-450); RBC 4.55 m/uL (4.30-5.90)
--- NOTE | 2023-04-05 17:32 | XR ---
EXAMINATION TYPE: XR chest 2V DATE OF EXAM: 04/05/2023 COMPARISON: 12/05/2013 HISTORY: Shortness of breath TECHNIQUE: Frontal and lateral views of the chest are obtained. FINDINGS: Scattered senescent parenchymal changes noted. Hyperinflation compatible with COPD. No evidence for infiltrate. No evidence for atelectasis. Heart size is stable. Mediastinal structures are stable and grossly unremarkable. No evidence for hilar prominence. Degenerative changes dorsal spine. IMPRESSION: 1. No evidence for acute pulmonary disease.
[2023-04-05 17:36] LABS: INR 0.9 (<1.2); Partial Thromboplastin Time 24.6 sec (22.0-30.0); Prothrombin Time 9.9 sec (9.0-12.0)
[2023-04-05 17:47] LABS: ALT 19 U/L (4-49); AST 19 U/L (17-59); African American GFR (CKD) >90 (>60 ml/min/1.73 sqM); Albumin 4.2 g/dL (3.5-5.0); Alkaline Phosphatase 70 U/L (38-126); Anion Gap 7 mmol/L; Blood Urea Nitrogen 16 mg/dL (9-20); Calcium 9.7 mg/dL (8.4-10.2); Carbon Dioxide 25 mmol/L (22-30); Chloride 104 mmol/L (98-107); Creatine Kinase 80 U/L (55-170); Glucose 195 mg/dL (74-99); Non-African American GFR(CKD) >90 (>60 ml/min/1.73 sqM); Potassium 4.5 mmol/L (3.5-5.1); Sodium 136 mmol/L (137-145); Total Bilirubin 0.5 mg/dL (0.2-1.3)
--- NOTE | 2023-04-05 18:04 | ED ---
General Adult HPI - General Chief complaint: Neuro Symptoms/Deficit Stated complaint: right side numbness-sent by Time Seen by Provider: 04/05/23 16:10 Source: patient, RN notes reviewed, old records reviewed Mode of arrival: ambulatory Limitations: no limitations - History of Present Illness Initial comments: This is a 58-year-old male who presents emergency department with past medical history significant for stroke. Patient states at 8:00 on Wednesday evening he started having tingling from the right side of his head all the down to his feet. Patient states he also noticed weakness in the right arm and the right leg. Patient states that tingling sensation is gone away but he still has a little weakness in the right arm and right leg. Patient denies any fever chills. Patient denies headache patient denies any recent trauma. Patient d enies any chest pain palpitations difficulty breathing or shortness of breath per patient denies any abdominal pain patient denies any nausea vomiting diarrhea - Related Data Home Medications Medication Instructions Recorded Confirmed Aspirin 81 mg PO DAILY 10/27/19 04/05/23 Empagliflozin [Jardiance] 25 mg PO DAILY 10/27/19 04/05/23 Metoprolol Succinate (ER) [Toprol 25 mg PO DAILY 10/27/19 04/05/23 Xl] Atorvastatin [Lipitor] 80 mg PO DAILY 04/05/23 04/05/23 Previous Rx's Medication Instructions Recorded Clopidogrel Bisulfate [Plavix] 75 mg PO DAILY #30 tab 10/08/19 Allergies Allergy/AdvReac Type Severity Reaction Status Date / Time No Known Allergies Allergy Verified 04/05/23 17:24 Review of Systems ROS Statement: Those systems with pertinent positive or pertinent negative responses have been documented in the HPI. ROS Other: All systems not noted in ROS Statement are negative. Past Medical History Past Medical History: Coronary Artery Disease (CAD), CVA/TIA, Diabetes Mellitus, Hyperlipidemia Additional Past Medical History / Comment(s): TIA 10/08/19. Carotid stenosis. Edema legs when on feet for extended time. History of Any Multi-Drug Resistant Organisms: None Reported Past Surgical History: Appendectomy, Cholecystectomy, Coronary Bypass/CABG, Heart Catheterization, Orthopedic Surgery, Tonsillectomy Additional Past Surgical History / Comment(s): Bilateral knee surg 1989, Triple CABG 2013. Past Anesthesia/Blood Transfusion Reactions: No Reported Reaction Past Psychological History: No Psychological Hx Reported Smoking Status: Current every day smoker Past Alcohol Use History: None Reported Past Drug Use History: None Reported - Past Family History Father Family Medical History: Cancer Additional Family Medical History / Comment(s): skin CA General Exam - General Exam Comments Initial Comments: GENERAL: Patient is well-developed and well-nourished. Patient is nontoxic and well- hydrated and is in mild distress. ENT: Neck is soft and supple. No significant lymphadenopathy is noted. Oropharynx is clear. Moist mucous membranes. Neck has full range of motion without eliciting any pain. EYES: The sclera were anicteric and conjunctiva were pink and moist. Extraocular movements were intact and pupils were equal round and reactive to light. Eyelids were unremarkable. PULMONARY: Unlabored respirations. Good breath sounds bilaterally. No audible rales rhonchi or wheezing was noted. CARDIOVASCULAR: There is a regular rate and rhythm without any murmurs gallops or rubs. ABDOMEN: Soft and nontender with normal bowel sounds. No palpable organomegaly was noted. There is no palpable pulsatile mass. SKIN: Skin is clear with no lesions or rashes and otherwise unremarkable. NEUROLOGIC: Patient is alert and oriented x3. Cranial nerves II through XII are grossly intact. Patient has a 4-5 balance weigher on the right compared to 5 out of 5 in the left. Patient's plantar flexion is also 4-5 compared to left 5 out of 5. Patient has normal sensation all 4 extremities MUSCULOSKELETAL: Normal extremities with adequate strength and full range of motion. No lower extremity swelling or edema. No calf tenderness. LYMPHATICS: No significant lymphadenopathy is noted PSYCHIATRIC: Normal psychiatric evaluation. Limitations: no limitations Course Vital Signs 04/05/23 04/05/23 16:05 18:50 Temperature 98.6 F 98 F Pulse Rate 62 52 L Respiratory 20 18 Rate Blood Pressure 132/67 130/65 O2 Sat by Pulse 99 97 Oximetry Medical Decision Making - Medical Decision Making EKG was interpreted by myself. EKG shows a sinus bradycardia 55 bpm [place] interval is 162 QRS 118 QT interval 470 QTC is 45. Patient's EKG shows no ST segment elevation or depression there is T-wave inversion in leads 3 and aVf Was pt. sent in by a medical professional or institution (, PA, PROPAGATION MANAGER, urgent care, hospital, or detention...) When possible be specific @ -[No] Did you speak to anyone other than the patient for history (EMS, parent, family, police, friend...)? What history was obtained from this source @ -[No] Did you review nursing and triage notes (agree or disagree)? Why? @ -[I reviewed and agree with nursing and triage notes] Were old charts reviewed (outside hosp., previous admission, EMS record, old EKG, old radiological studies, urgent care reports/EKG's, detention records)? Report findings @ -Review prior radiological studies prior lab work in prior charts on this patient Differential Diagnosis (chest pain, altered mental status, abdominal pain women, abdominal pain men, vaginal bleeding, weakness, fever, dyspnea, syncope, hea dache, dizziness, GI bleed, back pain, seizure, CVA, palpatations, mental health, musculoskeletal)? @ -Differential CVA Ischemic stroke, hemorrhagic stroke, brain tumor, atypical migraine, Wernicke's encephalopathy, seizure, multiple sclerosis, meningitis, encephalitis, hypoglyc emia, Guillain-Montejo, electrolytes disturbance, myasthenia gravis.... This is not meant to be an all-inclusive list EKG interpreted by me (3pts min.). @ -[As above] X-rays interpreted by me (1pt min.). @ -Chest x-ray shows no acute abnormality CT interpreted by me (1pt min.). @ -CT of the brain shows no acute abnormality. CT angiogram of the head and neck show no acute abnormality U/S interpreted by me (1pt. min.). @ -[None done] What testing was considered but not performed or refused? (CT, X-rays, U/S, labs)? Why? @ -[None] What meds were considered but not given or refused? Why? @ -[None] Did you discuss the management of the patient with other professionals (professionals i.e. , PA, PROPAGATION MANAGER, lab, RT, psych nurse, social work administrator, plant operations engineer, teacher, protective services officer, case checker)? Give summary @ -I spoke with [facility] they agreed to admit the patient I admitted the patient I wrote admitting orders Was smoking cessation discussed for >3mins.? @ -[No] Was critical care preformed (if so, how long)? @ -[No] Were there social determinants of health that impacted care today? How? (Homelessness, low income, unemployed, alcoholism, drug addiction, transportation, low edu. Level, literacy, decrease access to med. care, senior living, rehab)? @ -[No] Was there de-escalation of care discussed even if they declined (Discuss DNR or withdrawal of care, Hospice)? DNR status @ -[No] What co-morbidities impacted this encounter? (DM, HTN, Smoking, COPD, CAD, Cancer, CVA, ARF, Chemo, Hep., AIDS, mental health diagnosis, sleep apnea, morbid obesity)? @ -[None] Was patient admitted / discharged? Hospital course, mention meds given and route, prescriptions, significant lab abnormalities, going to OR and other p ertinent info. @ -Patient continued to right arm weakness right leg weakness throughout his ED course. CT of the brain shows no acute abnormality. CT angiogram of the head and neck showed no acute abnormality Undiagnosed new problem with uncertain prognosis? @ -[No] Drug Therapy requiring intensive monitoring for toxicity (Heparin, Nitro, Insulin, Cardizem)? @ -[No] Were any procedures done? @ -[No] Diagnosis/symptom? @ -CVA Acute, or Chronic, or Acute on Chronic? @ -Acute Uncomplicated (without systemic symptoms) or Complicated (systemic symptoms)? @ -Complicated Side effects of treatment? @ -[No] Exacerbation, Progression, or Severe Exacerbation? @ -[No] Poses a threat to life or bodily function? How? (Chest pain, [place], [place], pneumonia, PE, COPD, DKA, ARF, appy, cholecystitis, CVA, Diverticulitis, Homicidal, Suicidal, threat to staff... and all critical care pts) @ -Yes this could lead to further stroke and morbidity or mortality - Lab Data Result diagrams: 04/05/23 17:00 04/05/23 17:00 Lab Results 04/05/23 04/05/23 04/05/23 Range/Units 17:00 17:00 17:00 WBC 8.0 (3.8-10.6) k/uL RBC 4.55 (4.30-5.90) m/uL Hgb 14.3 (13.0-17.5) gm/dL Hct 41.8 (39.0-53.0) % MCV 92.0 (80.0-100.0) fL MCH 31.3 (25.0-35.0) pg MCHC 34.1 (31.0-37.0) g/dL RDW 13.0 (11.5-15.5) % Plt Count 294 (150-450) k/uL MPV 7.2 Neutrophils % 59 % Lymphocytes % 30 % Monocytes % 5 % Eosinophils % 4 % Basophils % 1 % Neutrophils # 4.7 (1.3-7.7) k/uL Lymphocytes # 2.4 (1.0-4.8) k/uL Monocytes # 0.4 (0-1.0) k/uL Eosinophils # 0.3 (0-0.7) k/uL Basophils # 0.1 (0-0.2) k/uL PT 9.9 (9.0-12.0) sec INR 0.9 (<1.2) APTT 24.6 (22.0-30.0) sec Sodium 136 L (137-145) mmol/L Potassium 4.5 (3.5-5.1) mmol/L Chloride 104 (98-107) mmol/L Carbon Dioxide 25 (22-30) mmol/L Anion Gap 7 mmol/L BUN 16 (9-20) mg/dL Creatinine 0.90 (0.66-1.25) mg/dL Est GFR (CKD-EPI)AfAm >90 (>60 ml/min/1.73 sqM) Est GFR (CKD-EPI)NonAf >90 (>60 ml/min/1.73 sqM) Glucose 195 H (74-99) mg/dL Calcium 9.7 (8.4-10.2) mg/dL Total Bilirubin 0.5 (0.2-1.3) mg/dL AST 19 (17-59) U/L ALT 19 (4-49) U/L Alkaline Phosphatase 70 (38-126) U/L Creatine Kinase 80 (55-170) U/L Troponin I (0.000-0.034) ng/mL Total Protein 7.0 (6.3-8.2) g/dL Albumin 4.2 (3.5-5.0) g/dL 04/05/23 Range/Units 17:00 WBC (3.8-10.6) k/uL RBC (4.30-5.90) m/uL Hgb (13.0-17.5) gm/dL Hct (39.0-53.0) % MCV (80.0-100.0) fL MCH (25.0-35.0) pg MCHC (31.0-37.0) g/dL RDW (11.5-15.5) % Plt Count (150-450) k/uL MPV Neutrophils % % Lymphocytes % % Monocytes % % Eosinophils % % Basophils % % Neutrophils # (1.3-7.7) k/uL Lymphocytes # (1.0-4.8) k/uL Monocytes # (0-1.0) k/uL Eosinophils # (0-0.7) k/uL Basophils # (0-0.2) k/uL PT (9.0-12.0) sec INR (<1.2) APTT (22.0-30.0) sec Sodium (137-145) mmol/L Potassium (3.5-5.1) mmol/L Chloride (98-107) mmol/L Carbon Dioxide (22-30) mmol/L Anion Gap mmol/L BUN (9-20) mg/dL Creatinine (0.66-1.25) mg/dL Est GFR (CKD-EPI)AfAm (>60 ml/min/1.73 sqM) Est GFR (CKD-EPI)NonAf (>60 ml/min/1.73 sqM) Glucose (74-99) mg/dL Calcium (8.4-10.2) mg/dL Total Bilirubin (0.2-1.3) mg/dL AST (17-59) U/L ALT (4-49) U/L Alkaline Phosphatase (38-126) U/L Creatine Kinase (55-170) U/L Troponin I 0.012 (0.000-0.034) ng/mL Total Protein (6.3-8.2) g/dL Albumin (3.5-5.0) g/dL Disposition Clinical Impression: Cerebrovascular accident (CVA) Disposition: ADMITTED IP TO THIS [facility] Referrals: Marguerite Figueroa MD [Primary Care Provider] - 1-2 days Time of Disposition: 20:32
--- NOTE | 2023-04-05 18:28 | CT ---
EXAMINATION TYPE: CT brain wo con DATE OF EXAM: 04/05/2023 COMPARISON: 10/08/2019 HISTORY: numbness to right side of body CT DLP: [address] of the brain was performed. The ventricles, basal cisterns and sulci overlying the cerebral convexities demonstrate mild enlargem ent. There is no evidence for intracranial hemorrhage or sulcal effacement. There is decreased attenuation about the periventricular white matter and deep white matter of both c erebral hemispheres, compatible with chronic small vessel ischemia. Differential diagnosis does inclu de demyelination. No mass effects are seen.No midline shift. Osseous calvarium is intact. If symptoms persist consider MRI. IMPRESSION: 1. Age related atrophic and chronic small vessel ischemic change without acute intracranial process s een at this time.
--- NOTE | 2023-04-05 18:37 | CT ---
EXAMINATION TYPE: CT angio head neck DATE OF EXAM: 04/05/2023 COMPARISON: 10/08/2019 HISTORY: right sided numbness CT DLP: 587.8 mGycm CONTRAST: Performed with IV Contrast, patient injected with 65cc mL of Isovue 370. Combination Contrast CTA cervical carotids and [place] CTA cervical carotids with 3-D recons truction Contrast CTA of the cervical carotids was performed 3-D reconstruction imaging obtained at a separate workstation. Right carotid system: Mild plaque is seen of the right common carotid artery. There is mild plaque a lso noted at the carotid bulb and proximal ICA. No significant diameter reduction. ECA is patent. Right vertebral artery appears unremarkable. Left carotid system: Mild plaque is seen of the left common carotid artery. There is mild plaque als o noted at the carotid bulb and proximal ICA. No significant diameter reduction. ECA is patent. Lef t vertebral artery appears unremarkable. IMPRESSION: 1. No significant diameter reduction to account for the patient's symptoms. CTA [place] with 3-D reconstruction Contrast CTA of the [place] was performed 3-D reconstruction imaging obtained at a separate workstation. Vertebrobasilar system as well as intracranial portions of the internal carotid arteries and their ma alexis tributaries are patent. I do not see evidence for sizable aneurysm or vascular malformation. Pl ease note MRI provides greater sensitivity and specificity. Visualized brain appears grossly unremar kable. IMPRESSION: 1. No significant abnormality. NASCET criteria was used in interpretation of this exam?
[2023-04-05] MEDS ORDERED: ASPIRIN 325 MG TAB PO STA (20:32)
[2023-04-06] MEDS: ASPIRIN 325 MG TAB PO SCH (08:40)
--- NOTE | 2023-04-06 08:47 | P.HPIM ---
History of Present Illness This is a pleasant 4 years old male with past medical history of hypertension, diabetes mellitus, hyperlipidemia, nicotine dependence, history of CVA/TIA, History of coronary artery disease status post CABG. Math Interventionist: Dr. Cornelius. PCP is Dr. Figueroa. He is status post bilateral endarterectomy with Dr. issa, last one was about 2 years ago. Patient presents because of right-sided weakness and numbness. Patient says that he presents because of numbness and tingling in his right side. He had a 1-2 episodes about 2 weeks ago of tingling on the right side that lasted about 15 minutes Since last Wednesday about 3 days ago his been having numbness in house for right side from his top of the body till his feet he described it as a discomfort in his body in half side of the chest on the right side of the belly is not compared to the left side. He denies any other symptom, no chest pain dyspnea cough and GI or urinary complaints He smokes about 1 pack per week and he was counseled to quit he agrees but he declines nicotine patch alcohol occasionally and no illicit drugs. Vitals stable, heart rate low-normal go down to 50s during sleep. Unremarkable CBC, INR, BMP, liver enzymes, troponin and creatinine kinase CT of the brain, no acute process. CTA of the head and neck: No acute abnormality noticed on both areas Chest x-ray: No acute process EKG: Sinus bradycardia at [address]-T changes on the lateral and anterior chest limits however patient has T-wave inversion in the inferior right In the emergency room patient was started on aspirin and he was admitted within urology team consult Review of Systems Review of systems CONSTITUTIONAL: No fever, no malaise, no fatigue. HEENT: No recent visual problems or hearing problems. Denied any sore throat. CARDIOVASCULAR: No orthopnea, PND, no palpitations, no syncope. PULMONARY: No shortness of breath, no cough, no hemoptysis. GASTROINTESTINAL: No diarrhea, no nausea, no vomiting, no abdominal pain. Normoactive bowel sounds. NEUROLOGICAL: No headaches, no weakness, no numbness. HEMATOLOGICAL: Denies any bleeding or petechiae. GENITOURINARY: Denies any burning micturition, frequency, or urgency. MUSCULOSKELETAL/RHEUMATOLOGICAL: Denies any joint pain, swelling, or any muscle pain. ENDOCRINE: Denies any polyuria or polydipsia. Past Medical History Past Medical History: Coronary Artery Disease (CAD), CVA/TIA, Diabetes Mellitus, Hyperlipidemia Additional Past Medical History / Comment(s): TIA 10/08/19. Carotid stenosis. Edema legs when on feet for extended time. History of Any Multi-Drug Resistant Organisms: None Reported Past Surgical History: Appendectomy, Cholecystectomy, Coronary Bypass/CABG, Heart Catheterization, Orthopedic Surgery, Tonsillectomy Additional Past Surgical History / Comment(s): Bilateral knee surg 1989, Triple CABG 2013. Past Anesthesia/Blood Transfusion Reactions: No Reported Reaction Past Psychological History: No Psychological Hx Reported Smoking Status: Current every day smoker Past Alcohol Use History: None Reported Past Drug Use History: None Reported - Past Family History Father Family Medical History: Cancer Additional Family Medical History / Comment(s): skin CA Medications and Allergies Home Medications Medication Instructions Recorded Confirmed Type Clopidogrel Bisulfate [Plavix] 75 mg PO DAILY #30 tab 10/08/19 04/05/23 Rx Aspirin 81 mg PO DAILY 10/27/19 04/05/23 History Empagliflozin [Jardiance] 25 mg PO DAILY 10/27/19 04/05/23 History Metoprolol Succinate (ER) [Toprol 25 mg PO DAILY 10/27/19 04/05/23 History Xl] Atorvastatin [Lipitor] 80 mg PO DAILY 04/05/23 04/05/23 History Allergies Allergy/AdvReac Type Severity Reaction Status Date / Time No Known Allergies Allergy Verified 04/05/23 17:24 Physical Exam Vitals: Vital Signs Temp Pulse Resp BP Pulse Ox 04/06/23 05:33 56 L 20 114/67 99 04/06/23 03:00 58 L 18 120/66 99 04/06/23 00:18 58 L 18 115/60 98 04/05/23 18:50 98 F 52 L 18 130/65 97 04/05/23 16:05 98.6 F 62 20 132/67 99 Intake and Output 04/05/23 04/05/23 04/06/23 14:59 22:59 06:59 Other: Weight 90.265 kg GENERAL: The patient is alert and oriented x3, not in any acute distress. Well developed, well nourished. HEENT: Pupils are round and equally reacting to light. EOMI. No scleral icterus. No conjunctival pallor. Normocephalic, atraumatic. No pharyngeal erythema. No thyromegaly. CARDIOVASCULAR: S1 and S2 present. No murmurs, rubs, or gallops. PULMONARY: Chest is clear to auscultation, no wheezing , no crackles. ABDOMEN: Soft, nontender, nondistended, normoactive bowel sounds. No palpable organomegaly. MUSCULOSKELETAL: No joint swelling or deformity. EXTREMITIES: No cyanosis, clubbing, or pedal edema. NEUROLOGICAL: Cranial nerves are grossly intact. Motor 5/5. Since then his decreased markedly on the right side compared to the left side, however for example when I examined L3 dermatome and L5 dermatome patient says decreases sensation however when I examined L4 dermatome patient reports no decrease sensation SKIN: No rashes. no petechiae. Results CBC & Chem 7: 04/05/23 17:00 04/05/23 17:00 Labs: Abnormal Lab Results - Last 24 Hours (Table) 04/05/23 Range/Units 17:00 Sodium 136 L (137-145) mmol/L Glucose 195 H (74-99) mg/dL Assessment and Plan Assessment: Right-sided numbness suspicious for acute stroke, however does not follow aty pical distribution Abnormal EKG with T-wave inversion in the inferior leads with mild bradycardia (patient on beta noa at home metoprolol 25 mg) Nicotine dependence Diabetes mellitus Hypertension Hyperlipidemia History of coronary artery disease status post CABG History of CVA/TIA Plan: Continue with aspirin Neurology consult pt may require MRI of the brain and echocardiogram Check carotid Doppler Labs and medication were reviewed.. Continue same treatment. Continue with symptomatic treatment. Resume home medication. Monitor lytes and vitals. DVT and GI prophylaxis. Further recommendations depends on the clinical course of the patient DVT prophylaxis: Subcutaneous heparin GI Prophylaxis: Pepcid PT/OT: Pending Prognosis is guarded
--- NOTE | 2023-04-06 08:52 | US ---
EXAMINATION TYPE: US carotid duplex BILAT DATE OF EXAM: 04/06/2023 COMPARISON: NONE CLINICAL INDICATION: Male, 58 years old with history of CVA; right sided numbness, CVA. bilateral end arterectomy 12/03 TECHNIQUE: Carotid duplex ultrasound examination. Indirect Doppler criteria was utilized. FINDINGS: EXAM MEASUREMENTS: RIGHT: Peak Systolic Velocity (PSV) cm/sec ----- Right CCA: 74.0 ----- Right ICA: 81.3 ----- Right ECA: 79.8 ICA/CCA ratio: 1.1 RIGHT: End Diastole cm/sec ----- Right CCA: 17.3 ----- Right ICA: 26.0 ----- Right ECA: 15.9 LEFT: Peak Systolic Velocity (PSV) cm/sec ----- Left CCA: 71.3 ----- Left ICA: 98.2 ----- Left ECA: 157.8 ICA/CCA ratio: 1.4 LEFT: End Diastole cm/sec ----- Left CCA: 17.5 ----- Left ICA: 34.8 ----- Left ECA: 11.4 VERTEBRALS (direction of flow): Right Vertebral: Antegrade Left Vertebral: Antegrade Rhythm: Normal GLOVE CLEANER NOTES: Mild plaque bilateral bifurcations. mildly increased velocities left ECA IMPRESSION: Less than 50% stenosis of the bilateral carotid bifurcations. Criteria for Assigning % of Stenosis / Diameter reduction (Estimation based on the indirect measurements of the internal carotid artery velocities (ICA PSV). 1. Normal (no stenosis)=ICA PSV < 125 cm/s: ratio < 2.0: ICA EDV<40 cm/s. 2. Less than 50% stenosis=ICA PSV < 125 cm/s: ratio < 2.0: ICA EDV<40 cm/s. 3. 50 to 69% stenosis=ICA PSV of 125 to 230 cm/s: ration 2.0 ? 4.0: ICA EDV 40-100 cm/s. 4. Greater than 70% stenosis to near occlusion= ICA PSV > 230 cm/s: ratio > 4.0: ICA EDV > 100 cm/s. 5. Near occlusion= ICA PSV velocities may be low or undetectable: variable ratio and ICA EDV. 6. Total occlusion=unable to detect flow.
[2023-04-06 09:01] LABS: Chol/HDL Ratio 7.25 Ratio
[2023-04-06] MEDS: EZETIMIBE 10 MG TAB PO SCH (12:59)
--- NOTE | 2023-04-06 13:35 | CA ---
Transthoracic Echo Report Name: Randolph Bonilla Age: 58 Gender: M : 1965 Exam Date: 04/06/2023 07:31 Exam Location: [facility] Ht (in): 69 Wt (lb): 199 Ordering Physician: Bobby Wheeler MD Attending/Referring Phys: [id number], Liam [employer] Mahesh Padilla Procedure CPT: Indications: Rule out heart disease Cardiac Hx: Technical Quality: Fair Contrast 1: Total Dose (mL): Contrast 2: Total Dose (mL): MEASUREMENTS (Male / Female) Normal Values 2D ECHO LV Diastolic Diameter PLAX 4.8 cm 4.2 - 5.9 / 3.9 - 5.3 cm LV Systolic Diameter PLAX 3.9 cm IVS Diastolic Thickness 1.1 cm 0.6 - 1.0 / 0.6 - 0.9 cm LVPW Diastolic Thickness 1.2 cm 0.6 - 1.0 / 0.6 - 0.9 cm LV Relative Wall Thickness 0.5 RV Internal Dim ED PLAX 3.0 cm LVOT Diameter 2.0 cm Aortic Root Diameter 3.0 cm LA Systolic Diameter LX 3.5 cm 3.0 - 4.0 / 2.7 - 3.8 cm LV Diastolic Volume MOD BP 89.0 cm??? 67 - 155 / 56 - 104 cm??? LV Systolic Volume MOD BP 42.0 cm??? 22 - 58 / 19 - 49 cm??? LV Ejection Fraction MOD BP 52.8 % >= 55 % LV Diastolic Volume MOD 4C 93.2 cm??? LV Systolic Volume MOD 4C 43.6 cm??? LV Ejection Fraction MOD 4C 53.2 % LV Diastolic Length 4C 7.6 cm LV Systolic Length 4C 6.8 cm LV Diastolic Volume MOD 2C 84.2 cm??? LV Systolic Volume MOD 2C 40.0 cm??? LV Ejection Fraction MOD 2C 52.5 % LV Diastolic Length 2C 7.8 cm LV Systolic Length 2C 6.5 cm LA Volume 60.0 cm??? 18 - 58 / 22 - 52 cm??? DOPPLER AV Peak Velocity 121.9 cm/s AV Peak Gradient 5.9 mmHg LVOT Peak Velocity 81.6 cm/s LVOT Peak Gradient 2.7 mmHg AV Area Cont Eq pk 2.1 cm??? MR Peak Velocity 151.7 cm/s MR Peak Gradient 9.2 mmHg Mitral E Point Velocity 78.1 cm/s Mitral A Point Velocity 76.1 cm/s Mitral E to A Ratio 1.0 MV Deceleration Time 244.7 ms MV E' Velocity 4.4 cm/s Mitral E to MV E' Ratio 17.9 TR Peak Velocity 194.8 cm/s TR Peak Gradient 15.2 mmHg Right Ventricular Systolic Press 20.2 mmHg FINDINGS Left Ventricle Left ventricular ejection fraction is estimated at 55 %. Right Ventricle Normal right ventricular size. Right Atrium Normal right atrial size. Left Atrium Normal left atrial size. Mitral Valve Structurally normal mitral valve. No mitral regurgitation. Aortic Valve Trileaflet aortic valve. No aortic regurgitation. No aortic stenosis. Tricuspid Valve Structurally normal tricuspid valve. Trace TR. Pulmonic Valve Pulmonic valve not well visualized. No pulmonic regurgitation. Pericardium Normal pericardium. Aorta Normal size aortic root and proximal ascending aorta. CONCLUSIONS Normal LV size and systolic function. There is mild concentric LVH. No significant abnormality on the Doppler exam no pericardial effusion Previewed by: Dr. Helga Cornelius MD (Electronically Signed) Final Date: 06 April 2023 13:34
--- NOTE | 2023-04-06 13:52 | P.CRDCN ---
History of Present Illness History of present illness: HISTORY OF PRESENT ILLNESS: This is a 58-year-old male with a past medical history significant for coronary artery disease with three-vessel CABG in 2013, TIA, carotid stenosis with bilateral carotid endarterectomy, hyperlipidemia, and ongoing nicotine dependence. Patient follows in the office with Dr. Cornelius but has not been seen in the office since December 2020. We have been asked to see the patient in consultation for abnormal EKG. Patient examined at the bedside in the emergency room. Patient presented to the hospital for chief complaint of right-sided numbness. He states his symptoms started on Wednesday. He states that the entire right side of his body is numb and has a tingling sensation. He denies any difficulty with speech. He denies any weakness on the left side of his body. The patient reports she has a history of TIA approximately 2 years ago and had speech difficulty at that time. He currently denies any chest pain or pressure. He denies shortness of breath. Patient is a current cigarette smoker. The patient states he has been compliant with all of his medications at home. * EKG reveals sinus mechanism with T-wave inversions inferiorly, new from previous EKG. Incomplete right bundle branch block. * Chest xray negative for acute process * CT brain: Age related atrophic and chronic small vessel ischemic changes without acute intracranial process * CTA head and neck: Negative for significant abnormality * Carotid Doppler: Less than 50% stenosis of bilateral internal carotid arteries * Laboratory data: W BC 8.0. Hemoglobin 14.3. Platelet count 294. Sodium 136. Potassium 4.5. BUN 16. Creatinine 0.90. Hemoglobin A1c 10.2. Troponin negative 1. Total cholesterol 271. LDL 176. * Current home cardiac medications include metoprolol succinate 25 mg daily, Jardiance 25mg daily, Plavix 75 mg daily, Lipitor 80 mg daily, and aspirin 81 mg daily * Most recent echocardiogram obtained in October 2021 revealed ejection fraction 55%, trace MR, trace TR * Patient underwent Lexiscan stress test in October 2019 which revealed evidence of prior inferior wall myocardial infarction. REVIEW OF SYSTEMS: At the time of my exam: CONSTITUTIONAL: Denies fever or chills. HEENT: Denies blurred vision, vision changes, or eye pain. Denies hemoptysis CARDIOVASCULAR: Denies chest pain. Denies orthopnea. Denies PND. Denies palpitations RESPIRATORY: Denies shortness of breath. GASTROINTESTINAL: Denies abdominal pain. Denies nausea or vomiting. HEMATOLOGIC: Denies bleeding disorders. GENITOURINARY: Denies any blood in urine. SKIN: Denies pruitis. Denies rash. PHYSICAL EXAM: VITAL SIGNS: Reviewed. GENERAL: Well-developed in no acute distress. HEENT: Head is normocephalic. Pupils are equal, round. Sclerae anicteric. Mucous membranes of the mouth are moist. Neck supple. No JVD or thyromegaly LUNGS: Respirations even and unlabored. Lungs essentially clear to auscultation bilaterally. HEART: Regular rate and rhythm. S1 and S2 heard. ABDOMEN: Soft. Nondistended. Nontender. EXTREMITIES: Normal range of motion. No clubbing or cyanosis. Peripheral pulses intact. No lower extremity edema NEUROLOGIC: Awake and alert. Oriented x 3. ASSESSMENT: Right-sided numbness and tingling, r/o CVA Coronary artery disease with previous three-vessel CABG in 2013 History of TIA Carotid stenosis with previous bilateral carotid endarterectomy Hyperlipidemia, uncontrolled, LDL 179 Diabetes, uncontrolled, hemoglobin A1c 10.2 Nicotine dependence PLAN: Obtain 2-D echo to assess cardiac structure and function Resume home cardiac medications Add Zetia 10mg daily in addition to Lipitor Patient requires tighter blood sugar control NPO at midnight Patient to undergo MICHELLE tomorrow with Dr. Davidson Further recommendations pending patient course Nurse practitioner note has been reviewed by physician. Signing provider agrees with the documented findings, assessment, and plan of care. Past Medical History Past Medical History: Coronary Artery Disease (CAD), CVA/TIA, Diabetes Mellitus, Hyperlipidemia Additional Past Medical History / Comment(s): TIA 10/08/19. Carotid stenosis. Edema legs when on feet for extended time. History of Any Multi-Drug Resistant Organisms: None Reported Past Surgical History: Appendectomy, Cholecystectomy, Coronary Bypass/CABG, Heart Catheterization, Orthopedic Surgery, Tonsillectomy Additional Past Surgical History / Comment(s): Bilateral knee surg 1989, Triple CABG 2013. Past Anesthesia/Blood Transfusion Reactions: No Reported Reaction Past Psychological History: No Psychological Hx Reported Smoking Status: Current every day smoker Past Alcohol Use History: None Reported Past Drug Use History: None Reported - Past Family History Father Family Medical History: Cancer Additional Family Medical History / Comment(s): skin CA Medications and Allergies Home Medications Medication Instructions Recorded Confirmed Type Clopidogrel Bisulfate [Plavix] 75 mg PO DAILY #30 tab 10/08/19 04/05/23 Rx Aspirin 81 mg PO DAILY 10/27/19 04/05/23 History Empagliflozin [Jardiance] 25 mg PO DAILY 10/27/19 04/05/23 History Metoprolol Succinate (ER) [Toprol 25 mg PO DAILY 10/27/19 04/05/23 History Xl] Atorvastatin [Lipitor] 80 mg PO DAILY 04/05/23 04/05/23 History Allergies Allergy/AdvReac Type Severity Reaction Status Date / Time No Known Allergies Allergy Verified 04/05/23 17:24 Physical Exam Vitals: Vital Signs Temp Pulse Pulse Resp BP BP Pulse Ox 04/06/23 10:00 51 L 165/89 98 04/06/23 08:00 97.8 F 59 L 16 156/83 98 04/06/23 05:33 56 L 20 114/67 99 04/06/23 03:00 58 L 18 120/66 99 04/06/23 00:18 58 L 18 115/60 98 04/05/23 18:50 98 F 52 L 18 130/65 97 04/05/23 16:05 98.6 F 62 20 132/67 99 Intake and Output 04/05/23 04/06/23 04/06/23 22:59 06:59 14:59 Other: Voiding Method Toilet Weight 90.265 kg Results 04/05/23 17:00 04/05/23 17:00 Cardiac Enzymes 04/05/23 04/05/23 Range/Units 17:00 17:00 AST 19 (17-59) U/L Troponin I 0.012 (0.000-0.034) ng/mL Coagulation 04/05/23 Range/Units 17:00 PT 9.9 (9.0-12.0) sec APTT 24.6 (22.0-30.0) sec Lipids 04/05/23 Range/Units 17:00 Triglycerides 288.00 H (0.00-149.00) mg/dL Cholesterol 271.00 H (0.00-200.00) mg/dL HDL Cholesterol 37.40 L (40.00-60.00) mg/dL Cholesterol/HDL Ratio 7.25 Ratio CBC 04/05/23 Range/Units 17:00 WBC 8.0 (3.8-10.6) k/uL RBC 4.55 (4.30-5.90) m/uL Hgb 14.3 (13.0-17.5) gm/dL Hct 41.8 (39.0-53.0) % Plt Count 294 (150-450) k/uL Comprehensive Metabolic Panel 04/05/23 Range/Units 17:00 Sodium 136 L (137-145) mmol/L Potassium 4.5 (3.5-5.1) mmol/L Chloride 104 (98-107) mmol/L Carbon Dioxide 25 (22-30) mmol/L BUN 16 (9-20) mg/dL Creatinine 0.90 (0.66-1.25) mg/dL Glucose 195 H (74-99) mg/dL Calcium 9.7 (8.4-10.2) mg/dL AST 19 (17-59) U/L ALT 19 (4-49) U/L Alkaline Phosphatase 70 (38-126) U/L Total Protein 7.0 (6.3-8.2) g/dL Albumin 4.2 (3.5-5.0) g/dL Current Medications Generic Name Dose Route Start Last Admin Trade Name Freq PRN Reason Stop Dose Admin Aspirin 325 mg 04/06/23 09:00 04/06/23 08:40 Aspirin 325 Mg Tab PO 325 mg DAILY [facility] Administration Atorvastatin Calcium 80 mg 04/07/23 09:00 Atorvastatin 80 Mg Tab PO DAILY [facility] Clopidogrel Bisulfate 75 mg 04/07/23 09:00 Clopidogrel 75 Mg Tab PO DAILY [facility] Dapagliflozin 10 mg 04/07/23 09:00 Dapagliflozin Propanediol 10 Mg Tablet PO DAILY [facility] Metoprolol Succinate 25 mg 04/07/23 09:00 Metoprolol Succinate (Er) 25 Mg Tab.Er.24h PO DAILY [facility] Intake and Output 04/05/23 04/06/23 04/06/23 22:59 06:59 14:59 Other: Voiding Method Toilet Weight 90.265 kg 04/05/23 17:00 04/05/23 17:00
[2023-04-06 16:30] LABS: Glucose,Whole Blood 313 mg/dL (70-110)
--- NOTE | 2023-04-06 16:34 | P.CNNES ---
History of Present Illness Consult date: 04/06/23 Requesting physician: Joselito Stringer Reason for Consult: CVA History of Present Illness: Patient is a 58-year-old right-handed male with history of hypertension, diabetes, hyperlipidemia, tobacco use came to the hospital yesterday at 3:55 PM for acute onset of numbness of right side of the body. Patient states that for the last 2 weeks he was having intermittent numbness and tingling sensation of right side of the body. It would come for 15 minutes and goes away. It was occurring every couple days. However on 04/03/2023 it happened at 68 PM and has persisted since then. It involves the entire right side of the body including face arm and leg in the chest. He also feels weakness of the right si de. He stayed home over the weekend, saw his primary physician yesterday at 2:40 PM, who recommended him to go to the ER. Patient was not a candidate for TPA as he came outside the window for TPA. Patient denies any slurred speech, facial droop, or any visual disturbance. He still feels subjective weakness of the right side, including numbness of right side of the body. Patient denies any pain in the body. Vital signs on arrival blood pressure 132/67, pulse rate 62 temperature 98.6. Blood test shows normal CBC, PT/PTT, and sodium 136 potassium 4.5, normal renal functions, hemoglobin A1c 10.2, hepatic panel is normal, troponin negative. CK normal. B12 [address] head revealed age-related atrophic and chronic small vessel ischemic change without acute intracranial process. I personally reviewed CT head, agree with the findings. CTA of head and neck normal. Patient says that he has history of a TIA, manifesting with transient slurred speech lasting for 5 minutes in 2019. He was found to have bilateral ICA stenosis. He underwent bilateral carotid endarterectomy one year apart. Patient has history of diabetes, which is not well controlled. He has hyperlipidemia. He has been smoking one pack per day for last 3 years. Prior to that he had quit smoking for 15 years. Prior to that he smoked 1 pack per day for another 15 years. He drinks alcohol very occasionally. Does not use any drugs or marijuana. Home medications include Plavix 75 mg, metoprolol, aspirin 81 mg, Lipitor 80 mg and Jardiance. Patient states that he ran out of his medications 3 weeks ago, and has not been taking any of his medications listed above for last 3 weeks, including aspirin. Review of Systems Constitutional: Denies chills, Denies fever Eyes: denies blurred vision, denies diplopia, denies pain Ears: deny: decreased hearing, ear discharge Ears, nose, mouth and throat: Denies headache, Denies sore throat Cardiovascular: Denies chest pain, Denies shortness of breath Respiratory: Denies cough, Denies excessive sputum Gastrointestinal: Denies abdominal pain, Denies diarrhea, Denies nausea, Denies vomiting Musculoskeletal: Denies myalgias, Denies neck pain Integumentary: Denies pruritus, Denies rash Neurological: Reports as per HPI Psychiatric: Denies anxiety, Denies depression Endocrine: Denies fatigue, Denies weight change Past Medical History Past Medical History: Coronary Artery Disease (CAD), CVA/TIA, Diabetes Mellitus, Hyperlipidemia Additional Past Medical History / Comment(s): TIA 10/08/19. Carotid stenosis. Edema legs when on feet for extended time. History of Any Multi-Drug Resistant Organisms: None Reported Past Surgical History: Appendectomy, Cholecystectomy, Coronary Bypass/CABG, Heart Catheterization, Orthopedic Surgery, Tonsillectomy Additional Past Surgical History / Comment(s): Bilateral knee surg 1989, Triple CABG 2013. Past Anesthesia/Blood Transfusion Reactions: No Reported Reaction Past Psychological History: No Psychological Hx Reported Smoking Status: Current every day smoker Past Alcohol Use History: None Reported Past Drug Use History: None Reported - Past Family History Father Family Medical History: Cancer Additional Family Medical History / Comment(s): skin CA Mother Family Medical History: Cancer Additional Family Medical History / Comment(s): Lung cancer, leukemia Medications and Allergies Home Medications Medication Instructions Recorded Confirmed Type Clopidogrel Bisulfate [Plavix] 75 mg PO DAILY #30 tab 10/08/19 04/05/23 Rx Aspirin 81 mg PO DAILY 10/27/19 04/05/23 History Empagliflozin [Jardiance] 25 mg PO DAILY 10/27/19 04/05/23 History Metoprolol Succinate (ER) [Toprol 25 mg PO DAILY 10/27/19 04/05/23 History Xl] Atorvastatin [Lipitor] 80 mg PO DAILY 04/05/23 04/05/23 History Allergies Allergy/AdvReac Type Severity Reaction Status Date / Time No Known Allergies Allergy Verified 04/05/23 17:24 Physical Examination - Vital Signs Vital Signs: Vital Signs Temp Pulse Pulse Resp BP BP Pulse Ox 04/06/23 10:00 51 L 165/89 98 04/06/23 08:00 97.8 F 59 L 16 156/83 98 04/06/23 05:33 56 L 20 114/67 99 04/06/23 03:00 58 L 18 120/66 99 04/06/23 00:18 58 L 18 115/60 98 04/05/23 18:50 98 F 52 L 18 130/65 97 04/05/23 16:05 98.6 F 62 20 132/67 99 Intake and Output 04/05/23 04/06/23 04/06/23 22:59 06:59 14:59 Other: Voiding Method Toilet Weight 90.265 kg Patient is a late middle aged male, very pleasant, in no acute distress. Patient is alert awake oriented to time place and person. Speech and language functions are normal. Patient can name and repeat very well. No aphasia or dysarthria. Attention, concentration and fund of knowledge is adequate. On cranial nerve examination, pupils are equal, round and reacting to light, visual ferris are full on confrontation, with no neglect on double simultaneous stimulation. Extraocular muscles are intact with no nystagmus. Face is symmetric, tongue protrudes to the midline. Palatal elevation and sensation normal, hearing and shoulder shrug normal, facial sensation decreased on the right. On muscle strength testing, there is no pronator drift and the strength is normal in arms and legs distally and proximally. Deep tendon reflexes are symmetric 1 at the biceps, 1 brachioradialis, 1+ at the knees, absent ankles and plantar is possible up on the right and withdrawal on the left. Sensory to touch revealed decreased sensation in the right side of the body including face arm and leg. Cerebellar function showed no ataxia for [id number] testing. No dysdiadochokinesia. No ataxia for [id number]-mucr testing on either side. Tone and bulk of muscles normal. Gait deferred.. On general examination, there is no carotid bruit or murmur, S1-S2 audible. Chest is clear on consultation. Abdomen is soft nontender. No organomegaly, bowel sounds present. Peripheral pulses are present. No edema. Results - Laboratory Findings CBC and BMP: 04/05/23 17:00 04/05/23 17:00 Abnormal Lab Findings: Abnormal Labs 04/05/23 04/05/23 04/05/23 17:00 17:00 17:00 Sodium 136 L Glucose 195 H Hemoglobin A1c 10.2 H Triglycerides 288.00 H Cholesterol 271.00 H LDL Cholesterol, Calc 176.0 H VLDL Cholesterol, Calc 57.60 H HDL Cholesterol 37.40 L Assessment and Plan Assessment: * 58-year-old male, with recurrent TIA for last 2 weeks, developed persistent symptoms with numbness and tingling of right side of the body including face arm and leg 3 days prior to arrival. Likely due to acute lacunar stroke from small vessel disease. Localization probably to the left thalamic region, less likely pontine. * Diabetes, poorly controlled * Hyperlipidemia * Tobacco use * Noncompliance with the medication, stopped taking all medications 3 weeks ago * History of bilateral CEA in 2018 and in 2019. * Coronary artery disease. Plan: * MRI of the brain without contrast, evaluate for acute CVA * 2-D echo revealed mild concentric LVH, with EF 55%. Left atrial size normal. Cardiology seen the patient, patient undergoing a MICHELLE in the morning. * CTA head and neck showed: No significant diameter reduction to account for the patient's symptoms. No significant abnormality. * Carotid Doppler, revealed less than 50% stenosis of bilateral carotid bifurcation. Antegrade flow in both vertebral arteries. * Resume aspirin 325 mg and Plavix 75 mg daily. Patient has stopped taking medication 3 weeks ago. * Fasting a.m. lipid panel cholesterol 271, LDL 176, HDL 37 triglycerides 288. Resume Lipitor 80 mg daily. Target LDL < 70. * Hemoglobin A1c 10.2. Optimize control of diabetes to target A1c <7.0 * Permissive hypertension for next 24-48 hours * Close neuro checks. * Telemetry monitoring rule out any arrhythmia * DVT prophylaxis: Heparin 5000 units subcu every 12 hours * Recommend complete tobacco cessation. * Neurology will continue ot follow. Dr. Josué Rodriguez will cover neurology service tomorrow on Wednesday. * Thank you for the consult.
[2023-04-06] MEDS: INSULIN ASPART (NovoLOG) 100 UNIT/ML VIAL SQ SCH ×2 (16:56→20:17)
[2023-04-06 19:33] LABS: Glucose,Whole Blood 158 mg/dL (70-110)
[2023-04-06] MEDS: INSULIN DETEMIR (LEVEMIR) 100 UNIT/ML SYR SQ SCH (20:08)
[2023-04-06] MEDS: HEPARIN SODIUM,PORCINE/PF 5,000 UNIT/0.5 ML SYRINGE SQ SCH (20:16)
[2023-04-07 05:54] LABS: Glucose,Whole Blood 225 mg/dL (70-110)
[2023-04-07] MEDS: INSULIN ASPART (NovoLOG) 100 UNIT/ML VIAL SQ SCH ×4 (06:13→20:39)
[2023-04-07] MEDS: METOPROLOL SUCCINATE (ER) 25 MG TAB.ER.24H PO SCH (09:36)
[2023-04-07] MEDS: CLOPIDOGREL 75 MG TAB PO SCH (09:36)
[2023-04-07] MEDS: HEPARIN SODIUM,PORCINE/PF 5,000 UNIT/0.5 ML SYRINGE SQ SCH ×2 (09:36→20:39)
[2023-04-07] MEDS: EZETIMIBE 10 MG TAB PO SCH (09:36)
[2023-04-07] MEDS: ATORVASTATIN 80 MG TAB PO SCH (09:36)
[2023-04-07] MEDS: DAPAGLIFLOZIN PROPANEDIOL 10 MG TABLET PO SCH (10:32)
--- NOTE | 2023-04-07 10:48 | MR ---
EXAMINATION TYPE: MR brain wo con DATE OF EXAM: 04/07/2023 10:12 AM COMPARISON: 04/05/2023 CLINICAL INDICATION:Male, 58 years old with history of Acute CVA; PHH, Acute CVA. TECHNIQUE: Multi planar, multi sequence imaging was performed through the brain including: T1, T2, In version recovery, Diffusion weighted imaging, and gradient echo imaging. No gadolinium was given. FINDINGS: Left thalamus focus of restricted diffusion measuring 7 mm. Suspected remote injury to the right occipital lobe. The galvez-white junctions, ventricular system, and cisterns appear unremarkable. The scattered foci o f high T2 signal intensity are seen within the periventricular white matter. Midline structures show no abnormality. The susceptibility weighted images reveals blooming effect within the right cerebella r hemisphere compatible with developmental venous anomaly. Few scattered foci of blooming artifact th roughout the brain compatible with microhemorrhage. The bone marrow signal is within normal limits. Paranasal sinuses and mastoid air cells: No significant paranasal sinus disease. Visualized orbits: Orbital contents are intact. IMPRESSION: 1. Acute/subacute CVA involving the left thalamus. 2. Remote injury to the right occipital lobe 3. Right cerebellar hemisphere development of venous anomaly. 4. Minimal nonspecific white matter changes, likely secondary to small vessel ischemic disease.
[2023-04-07 11:49] LABS: Glucose,Whole Blood 200 mg/dL (70-110)
--- NOTE | 2023-04-07 13:15 | P.PN ---
Subjective HISTORY OF PRESENT ILLNESS: This is a 58-year-old male with a past medical history significant for coronary artery disease with three-vessel CABG in 2013, TIA, carotid stenosis with bilateral carotid endarterectomy, hyperlipidemia, and ongoing nicotine dependence. Patient follows in the office with Dr. Cornelius but has not been seen in the office since December 2020. We have been asked to see the patient in consultation for abnormal EKG. Patient examined at the bedside in the emergency room. Patient presented to the hospital for chief complaint of right-sided numbness. He states his symptoms started on Wednesday. He states that the entire right side of his body is numb and has a tingling sensation. He denies any difficulty with speech. He denies any weakness on the left side of his body. The patient reports she has a history of TIA approximately 2 years ago and had speech difficulty at that time. He currently denies any chest pain or pressure. He denies shortness of breath. Patient is a current cigarette sm oker. The patient states he has been compliant with all of his medications at home. * EKG reveals sinus mechanism with T-wave inversions inferiorly, new from previous EKG. Incomplete right bundle branch block. * Chest xray negative for acute process * CT brain: Age related atrophic and chronic small vessel ischemic changes without acute intracranial process * CTA head and neck: Negative for significant abnormality * Carotid Doppler: Less than 50% stenosis of bilateral internal carotid arteries * Laboratory data: W BC 8.0. Hemoglobin 14.3. Platelet count 294. Sodium 136. Potassium 4.5. BUN 16. Creatinine 0.90. Hemoglobin A1c 10.2. Troponin negative 1. Total cholesterol 271. LDL 176. * Current home cardiac medications include metoprolol succinate 25 mg daily, Jardiance 25mg daily, Plavix 75 mg daily, Lipitor 80 mg daily, and aspirin 81 mg daily * Most recent echocardiogram obtained in October 2021 revealed ejection fraction 55%, trace MR, trace TR * Patient underwent Lexiscan stress test in October 2019 which revealed evidence of prior inferior wall myocardial infarction. 04/07/2023 Patient examined this morning at the bedside. Patient denies chest pain or pressure. Denies shortness of breath. Echocardiogram completed revealing ejection fraction 55%. PHYSICAL EXAM: VITAL SIGNS: Reviewed. GENERAL: Well-developed in no acute distress. HEENT: Head is normocephalic. Pupils are equal, round. Sclerae anicteric. Mucous membranes of the mouth are moist. Neck supple. No JVD or thyromegaly LUNGS: Respirations even and unlabored. Lungs essentially clear to auscultation bilaterally. HEART: Regular rate and rhythm. S1 and S2 heard. ABDOMEN: Soft. Nondistended. Nontender. EXTREMITIES: Normal range of motion. No clubbing or cyanosis. Peripheral pulses intact. No lower extremity edema NEUROLOGIC: Awake and alert. Oriented x 3. ASSESSMENT: Right-sided numbness and tingling, r/o CVA Coronary artery disease with previous three-vessel CABG in 2014 History of TIA Carotid stenosis with previous bilateral carotid endarterectomy Hyperlipidemia, uncontrolled, LDL 179 Diabetes, uncontrolled, hemoglobin A1c 10.2 Nicotine dependence PLAN: Continue current cardiac medications Patient scheduled for MRI of the brain today. Patient was scheduled to undergo MICHELLE today. However due to scheduling conflicts this will be rescheduled for tomorrow Further recommendations pending patient course Nurse practitioner note has been reviewed by physician. Signing provider agrees with the documented findings, assessment, and plan of care. Objective - Vital Signs Vital signs: Vital Signs Temp 97.7 F 04/07/23 07:47 Pulse 52 L 04/07/23 11:30 Resp 17 04/07/23 11:30 BP 114/66 04/07/23 11:30 Pulse Ox 99 04/07/23 11:30 FiO2 Intake & Output 04/06/23 04/07/23 04/07/23 18:59 06:59 18:59 Intake Total 180 10 Balance 180 10 Weight 90.265 kg Intake: IV 10 Invasive Line 1 10 Oral 180 Other: Voiding Method Toilet Toilet Toilet # Voids 3 1 - Labs CBC & Chem 7: 04/05/23 17:00 04/05/23 17:00 Labs: Abnormal Lab Results - Last 24 Hours (Table) 04/06/23 04/06/23 04/07/23 Range/Units 16:29 19:30 05:51 POC Glucose (mg/dL) 313 H 158 H 225 H (70-110) mg/dL 04/07/23 Range/Units 11:47 POC Glucose (mg/dL) 200 H (70-110) mg/dL
[2023-04-07] MEDS: ASPIRIN 325 MG TAB PO SCH (13:22)
--- NOTE | 2023-04-07 13:54 | P.PN ---
Subjective This is a pleasant 4 years old male with past medical history of hypertension, diabetes mellitus, hyperlipidemia, nicotine dependence, history of CVA/TIA, History of coronary artery disease status post CABG. Receivable Executive: Dr. Cornelius. PCP is Dr. Figueroa. He is status post bilateral endarterectomy with Dr. issa, last one was about 2 years ago. Patient presents because of right-sided weakness and numbness. Patient says that he presents because of numbness and tingling in his right side. He had a 1-2 episodes about 2 weeks ago of tingling on the right side that lasted about 15 minutes Since last Wednesday about 3 days ago his been having numbness in house for right side from his top of the body till his feet he described it as a discomfort in his body in half side of the chest on the right side of the belly is not compared to the left side. He denies any other symptom, no chest pain dyspnea cough and GI or urinary complaints He smokes about 1 pack per week and he was counseled to quit he agrees but he declines nicotine patch alcohol occasionally and no illicit drugs. Vitals stable, heart rate low-normal go down to 50s during sleep. Unremarkable CBC, INR, BMP, liver enzymes, troponin and creatinine kinase CT of the brain, no acute process. CTA of the head and neck: No acute abnormality noticed on both areas Chest x-ray: No acute process EKG: Sinus bradycardia at [address]-T changes on the lateral and anterior chest limits however patient has T-wave inversion in the inferior right In the emergency room patient was started on aspirin and he was admitted within urology team consult 04/07/2023 patient clinically the same still complaining of from numbness on the right side MRI showing acute subacute infarct of the left thalamus Patient is going for a MICHELLE tomorrow Check TSH and B12 level Continue with home dose of Plavix and increase aspirin to 325 mg daily . Physical therapy recommended Objective - Vital Signs Vital signs: Vital Signs Temp 97.7 F 04/07/23 07:47 Pulse 52 L 04/07/23 11:30 Resp 17 04/07/23 11:30 BP 114/66 04/07/23 11:30 Pulse Ox 99 04/07/23 11:30 FiO2 Intake & Output 04/06/23 04/07/23 04/07/23 18:59 06:59 18:59 Intake Total 180 10 Balance 180 10 Weight 90.265 kg Intake: IV 10 Invasive Line 1 10 Oral 180 Other: Voiding Method Toilet Toilet Toilet # Voids 3 1 - Exam GENERAL: The patient is alert and oriented x3, not in any acute distress. Well developed, well nourished. HEENT: Pupils are round and equally reacting to light. EOMI. No scleral icterus. No conjunctival pallor. Normocephalic, atraumatic. No pharyngeal erythema. No thyromegaly. CARDIOVASCULAR: S1 and S2 present. No murmurs, rubs, or gallops. PULMONARY: Chest is clear to auscultation, no wheezing , no crackles. ABDOMEN: Soft, nontender, nondistended, normoactive bowel sounds. No palpable organomegaly. MUSCULOSKELETAL: No joint swelling or deformity. EXTREMITIES: No cyanosis, clubbing, or pedal edema. NEUROLOGICAL: Gross neurological examination did not reveal any focal deficits. SKIN: No rashes. no petechiae. - Labs CBC & Chem 7: 04/05/23 17:00 04/05/23 17:00 Labs: Abnormal Lab Results - Last 24 Hours (Table) 04/06/23 04/06/23 04/07/23 Range/Units 16:29 19:30 05:51 POC Glucose (mg/dL) 313 H 158 H 225 H (70-110) mg/dL 04/07/23 Range/Units 11:47 POC Glucose (mg/dL) 200 H (70-110) mg/dL Assessment and Plan Assessment: Right-sided numbness suspicious for acute stroke, however does not follow atypical distribution Abnormal EKG with T-wave inversion in the inferior leads with mild bradycardia (patient on beta noa at home metoprolol 25 mg) Nicotine dependence Diabetes mellitus Hypertension Hyperlipidemia History of coronary artery disease status post CABG History of CVA/TIA Plan: Continue with aspirin Neurology consult MICHELLE with Coreg 50 Continue with symptomatic treatment. Resume home medication. Monitor lytes and vitals. DVT and GI prophylaxis. Further recommendations depends on the clini filiberto course of the patient DVT prophylaxis: Subcutaneous heparin GI Prophylaxis: Pepcid Prognosis is guarded
--- NOTE | 2023-04-07 15:50 | P.PN ---
Subjective Progress Note Date: 04/07/23 I'm seeing the patient for the first time during this admission. Please refer to Dr. Levin's note for further details The patient has acute to subacute ischemic stroke over the left thalamus region. Patient stated that he was having intermittent numbness and tingling over the right side including the face upper and lower extremity. But since the this past Wednesday it's more constant. Denies of any weakness. Objective - Vital Signs Vital signs: Vital Signs Temp 97.7 F 04/07/23 07:47 Pulse 56 L 04/07/23 13:30 Resp 17 04/07/23 11:30 BP 114/66 04/07/23 11:30 Pulse Ox 99 04/07/23 11:30 FiO2 Intake & Output 04/06/23 04/07/23 04/07/23 18:59 06:59 18:59 Intake Total 180 10 Balance 180 10 Weight 90.265 kg Intake: IV 10 Invasive Line 1 10 Oral 180 Other: Voiding Method Toilet Toilet Toilet # Voids 3 1 2 - Exam GENERAL: The patient is lying in bed and is not in acute distress. NEUROLOGICAL: Higher mental function: The patient is awake, alert, oriented to self, place and time. Patient is following commands. No aphasia and no neglect. Cranial nerves: The pupils are round, equal and reactive to light and accommodation. Visual ferris are full to confrontation throughout. Extraocular movement is intact no nystagmus is noted. Facial sensation is decreased to touch over the right side but seems patchy on right side. The facial strength is normal throughout. Tongue is midline and moved [id number] without any difficulty. No dysarthria is noted. Shoulder shrug is normal bilaterally. Motor: The strength is 5 over 5 throughout. Normal tone and bulk. Cerebellum: Normal finger to nose bilaterally. Sensation:Decrease sensation to touch over the right side. - Labs CBC & Chem 7: 04/05/23 17:00 04/05/23 17:00 Labs: Abnormal Lab Results - Last 24 Hours (Table) 04/06/23 04/06/23 04/07/23 Range/Units 16:29 19:30 05:51 POC Glucose (mg/dL) 313 H 158 H 225 H (70-110) mg/dL 04/07/23 Range/Units 11:47 POC Glucose (mg/dL) 200 H (70-110) mg/dL Assessment and Plan Assessment: * 58-year-old male, with recurrent TIA for last 2 weeks, developed persistent symptoms with numbness and tingling of right side of the body including face arm and leg 3 days prior to arrival. Acute to subacute left thalamic ischemic stroke. Etiology seems chronic small vessel disease to due to multiple risk factors below * Diabetes, poorly controlled * Hyperlipidemia * Tobacco use * Noncompliance with the medication, stopped taking all medications 3 weeks ago * History of bilateral CEA in 2019 and in 2019. * Coronary artery disease s/p CABG Plan: * MRI of the brain without contrast: It is reported as acute/subacute CVA involving the left thalamus. Remote injury involving the right occipital lobe. Right salivary hemisphere of the frontal of venous anomaly. Minimal nonspecific white matter changes, likely secondary due to small vessel ischemic disease. * 2-D echo revealed mild concentric LVH, with EF 55%. Left atrial size normal. Cardiology seen the patient, patient undergoing a MICHELLE possibly today. * CTA head and neck showed: No significant diameter reduction to account for the patient's symptoms. No significant abnormality. * Carotid Doppler, revealed less than 50% stenosis of bilateral carotid bifurcation. Antegrade flow in both vertebral arteries. * Resume aspirin 325 mg and Plavix 75 mg daily. Patient has stopped taking medication 3 weeks ago. * Fasting a.m. lipid panel cholesterol 271, LDL 176, HDL 37 triglycerides 288. Resume Lipitor 80 mg daily. Target LDL < 70. * Hemoglobin A1c 10.2. Optimize control of diabetes to target A1c <7.0 * Recommend normotensive blood pressure * Close neuro checks. * Telemetry monitoring rule out any arrhythmia * DVT prophylaxis: Heparin 5000 units subcu every 12 hours * Recommend complete tobacco cessation. * Upon discharge recommend the patient follow up with a neurologist as an outpatient within 1-2 weeks. It seems the patient has an appointment with Dr. York down the line. The plan was discussed with the patient's and his is at bedside. If MICHELLE is negative the patient is clear from a neurologic perspective. Dr. Levin will resume neurology coverage tomorrow a.m. Time with Patient: Less than 30
[2023-04-07 15:56] VITALS: RESP 16
[2023-04-07 16:42] LABS: Glucose,Whole Blood 241 mg/dL (70-110)
[2023-04-07 20:09] LABS: Glucose,Whole Blood 232 mg/dL (70-110)
[2023-04-07] MEDS: INSULIN DETEMIR (LEVEMIR) 100 UNIT/ML SYR SQ SCH (21:50)
[2023-04-08 06:08] LABS: Glucose,Whole Blood 231 mg/dL (70-110)
[2023-04-08] MEDS: INSULIN ASPART (NovoLOG) 100 UNIT/ML VIAL SQ SCH ×2 (06:59→12:34)
[2023-04-08] MEDS: ATORVASTATIN 80 MG TAB PO SCH (08:26)
[2023-04-08] MEDS: HEPARIN SODIUM,PORCINE/PF 5,000 UNIT/0.5 ML SYRINGE SQ SCH (08:26)
[2023-04-08] MEDS: CLOPIDOGREL 75 MG TAB PO SCH (08:26)
[2023-04-08] MEDS: DAPAGLIFLOZIN PROPANEDIOL 10 MG TABLET PO SCH (08:26)
[2023-04-08] MEDS: EZETIMIBE 10 MG TAB PO SCH (08:26)
[2023-04-08] MEDS: ASPIRIN 325 MG TAB PO SCH (08:26)
[2023-04-08] MEDS ORDERED: IV FLUID CONTINUATION 1,000 ML IV ONE (09:44)
[2023-04-08] MEDS ORDERED: SODIUM CHLORIDE 0.9% 250 ML IV ONE (09:44)
[2023-04-08] MEDS ORDERED: fentaNYL (PF) 50 MCG/ML 2 ML AMP ONE (09:45)
[2023-04-08] MEDS: BENZOCAINE SPRAY 1 CAN MUCOUS MEM ONE ×2 (09:58→10:04)
[2023-04-08] MEDS ORDERED: MIDAZOLAM 2 MG/2 ML VIAL IVP ONE (10:04)
[2023-04-08] MEDS ORDERED: fentaNYL (PF) 50 MCG/1 ML VIAL IVP ONE (10:05)
[2023-04-08 10:15] VITALS: BP 153/73; PULSE 50
--- NOTE | 2023-04-08 10:39 | ECHOS ---
STRESS ECHOCARDIOGRAM INDICATION: CVA. PROCEDURE NOTE: After obtaining informed consent, transesophageal echocardiogram was performed in left lateral position using an Omniplane probe. Local and IV sedation were obtained using Xylocaine spray, Versed and fentanyl. Total sedation time was 10 minutes. The patient tolerated the procedure well without any obvious immediate complications. FINDINGS: 1. There is no intracardiac thrombus within the left atrial appendage, left atrium, right atrium or right ventricle. 2. Left ventricle has normal size and systolic function. 3. Left atrium appears mildly enlarged. 4. Interatrial septum: There is no evidence of yxtv-me-luaal shunt by color-flow Doppler or vpkts-el-cded shunt by agitated saline contrast study. 5. Aorta is free of significant atherosclerotic changes. 6. Mitral valve is anatomically normal. There is mild mitral regurgitation noted. There is mild tricuspid regurgitation noted. 7. Aortic valve is free of stenosis or regurgitation. CONCLUSIONS: 1. No intracardiac thrombus. 2. Normal LV systolic function. 3. No evidence of shunting across the interatrial septum. MMODL / IJN: [id number] /
[2023-04-08 11:16] VITALS: TEMP 97.6
[2023-04-08 12:06] LABS: Glucose,Whole Blood 125 mg/dL (70-110)
[2023-04-08 12:19] VITALS: BMI 29.3
[2023-04-08] MEDS: METOPROLOL SUCCINATE (ER) 25 MG TAB.ER.24H PO SCH (12:33)
--- NOTE | 2023-04-08 12:54 | P.PN ---
Subjective Progress Note Date: 04/08/23 Patient offers no new symptoms. Continues to have numbness of complete right side of the body including face arm and leg, and in the trunk. No weakness, no headache. No dizziness. Objective - Vital Signs Vital signs: Vital Signs Temp 97.6 F 04/08/23 08:25 Pulse 50 L 04/08/23 10:11 Resp 16 04/08/23 10:11 BP 153/73 04/08/23 10:11 Pulse Ox 98 04/08/23 10:11 FiO2 Intake & Output 04/07/23 04/08/23 04/08/23 18:59 06:59 18:59 Intake Total 100 Balance 100 Weight 90.265 kg Intake: IV 100 Other: Voiding Method Toilet Toilet Toilet # Voids 2 1 - Exam Mental status, speech and language functions normal. Cranial nerves only significant for right facial numbness. No facial droop. On muscle strength testing no pronator drift. Muscle strength is normal. Sensation decreased in the entire rest of the body. No ataxia. Gait normal. - Labs CBC & Chem 7: 04/05/23 17:00 04/05/23 17:00 Labs: Abnormal Lab Results - Last 24 Hours (Table) 04/07/23 04/07/23 04/08/23 Range/Units 16:35 20:08 06:06 POC Glucose (mg/dL) 241 H 232 H 231 H (70-110) mg/dL 04/08/23 Range/Units 12:05 POC Glucose (mg/dL) 125 H (70-110) mg/dL Assessment and Plan Assessment: * Acute left thalamic lacunar stroke, likely due to small vessel disease. * Diabetes, poorly controlled * Hyperlipidemia * Tobacco use * Noncompliance with the medication, stopped taking all medications 3 weeks ago * History of bilateral CEA in 2019 and in 2019. * Coronary artery disease. Plan: * MRI of the brain without contrast: It is reported as acute/subacute CVA involving the left thalamus. Remote injury involving the right occipital lobe. Right cerebellar hemisphere venous anomaly. Minimal nonspecific white matter changes, likely secondary due to small vessel ischemic disease. I personally reviewed MRI, agree with the findings. * 2-D echo revealed mild concentric LVH, with EF 55%. Left atrial size normal. Cardiology seen the patient. * Patient had a MICHELLE performed today, which revealed normal left ventricular systolic function. No intraventricular thrombus. No shunt across interatrial septum. Left atrium appears mildly enlarged. * CTA head and neck showed: No significant diameter reduction to account for the patient's symptoms. No significant abnormality. * Carotid Doppler, revealed less than 50% stenosis of bilateral carotid bifurcation. Antegrade flow in both vertebral arteries. * Resume aspirin 325 mg and Plavix 75 mg daily. Patient has stopped taking me dication 3 weeks ago. Okay to discharge on aspirin 81 mg and Plavix 75 mg daily. * Fasting a.m. lipid panel cholesterol 271, LDL 176, HDL 37 triglycerides 288. Resume Lipitor 80 mg daily. Target LDL < 70. * Hemoglobin A1c 10.2. Optimize control of diabetes to target A1c <7.0 * Recommend normotensive blood pressure * Telemetry monitoring rule out any arrhythmia * Recommend complete tobacco cessation. * Upon discharge recommend the patient follow up with a neurologist as an outpatient within 1-2 weeks. It seems the patient has an appointment with Dr. York in May 2023 * Neurologically clear for discharge.
[2023-04-08] MEDS ORDERED: amLODIPine 5 MG TAB PO SCH (13:30)
--- NOTE | 2023-04-08 23:00 | P.DS ---
Providers Date of admission: 04/05/23 20:32 Attending physician: Kristopher Beatty Consults: 04/05/23 20:33 Consult Physician Routine Consulting Provider: Derrick Levin Consult Reason/Comments: CVA Do you want consulting provider notified?: Yes 04/06/23 08:45 Consult Physician Routine Consulting Provider: Manjinder Davidson Consult Reason/Comments: inverted T wave in the inferior leads Do you want consulting provider notified?: Yes Primary care physician: Marguerite Figueroa Hospital Course: Diagnoses: Right-sided numbness secondary to acute stroke, with MRI showing acute/subacute stroke of the left thalamus Abnormal EKG with T-wave inversion in the inferior leads with mild bradycardia (patient on beta noa at home metoprolol 25 mg) Nicotine dependence Noneadherence to medication Diabetes mellitus Hypertension Hyperlipidemia History of coronary artery disease status post CABG History of CVA/TIA Hospital course: This is a pleasant 4 years old male with past medical history of hypertension, diabetes mellitus, hyperlipidemia, nicotine dependence, history of CVA/TIA, History of coronary artery disease status post CABG. Personal Protection Specialist: Dr. Cornelius. PCP is Dr. Figueroa. He is status post bilateral endarterectomy with Dr. issa, last one was about 2 years ago. Patient presents because of right-sided weakness and numbness..MRI showing acute subacute infarct of the left thalamus. Apparently patient stop taking his Plavix and aspirin 81 mg at home about 3 weeks prior to hospitalization, patient told me because he ran out of it. Patient counseled about the importance of foot hurts to treatment and benefits risks explained for him extensively and he verbalized understanding and acceptance. Discussed with the patient under [facility] for blood pressure control and he agrees. He wishes to stop metoprolol which is held and recommended that he follow up with nutrition tech in 1 week and he agrees Discharge from a patient was instructed to follow up with his nutrition tech in 1 week when he agrees Patient will be discharged on his home dose of Plavix and aspirin 81 mg, this was discussed with the neurology service. Patient evaluated by both cardiology and nephrology service Prescription provided for the patient Problems and management plan were discussed with the patient and he verbalized understanding and acceptance Patient was found stable and can be discharged home in guarded prognosis however he needs follow-up as an outpatient. Patient was instructed to follow up with PCP Dr. Carolina within one week and patient agrees Patient was instructed to follow up with his neurologist Dr. York in 1-2 weeks and with nutrition tech Dr. Davidson in 1-2 weeks and he verbalized understanding and acceptance Physical therapy recommended home Physical exam Gen: patient is a AAOx3, no distress CVS: S1-S2, RRR, no murmur Lungs: B/L CTA, no wheezing Abdomen: soft, no distention, no tenderness, positive bowel sounds Extremity: no leg edema or induration Gait normal Time spent more than 35 minutes Plan - Discharge Summary Discharge Rx Participant: No New Discharge Prescriptions: New Clopidogrel [Plavix] 75 mg PO DAILY #30 tab Ezetimibe [Zetia] 10 mg PO DAILY #30 tab amLODIPine [Norvasc] 5 mg PO DAILY #30 tab Dapagliflozin Propanediol [Farxiga] 10 mg PO DAILY #30 tab Continue Aspirin 81 mg PO DAILY #30 tab Atorvastatin [Lipitor] 80 mg PO DAILY #30 tab Empagliflozin [Jardiance] 25 mg PO DAILY #30 tab Discontinued Clopidogrel Bisulfate [Plavix] 75 mg PO DAILY #30 tab Metoprolol Succinate (ER) [Toprol XL] 25 mg PO DAILY Discharge Medication List Aspirin 81 mg PO DAILY #30 tab 04/08/23 [Rx] Atorvastatin [Lipitor] 80 mg PO DAILY #30 tab 04/08/23 [Rx] Clopidogrel [Plavix] 75 mg PO DAILY #30 tab 04/08/23 [Rx] Dapagliflozin Propanediol [Farxiga] 10 mg PO DAILY #30 tab 04/08/23 [Rx] Empagliflozin [Jardiance] 25 mg PO DAILY #30 tab 04/08/23 [Rx] Ezetimibe [Zetia] 10 mg PO DAILY #30 tab 04/08/23 [Rx] amLODIPine [Norvasc] 5 mg PO DAILY #30 tab 04/08/23 [Rx] Follow up Appointment(s)/Referral(s): Bib York DO [STAFF PHYSICIAN] - 05/27/23 10:30 am Marguerite Figueroa MD [Primary Care Provider] - 04/12/23 11:40 am () Manjinder Davidson MD [STAFF PHYSICIAN] - 2 Weeks (Office to call with appointment date and time.) Patient Instructions/Handouts: Type 2 Diabetes in Adults: New Diagnosis (DC), Ischemic Stroke (DC), Hemoglobin A1c (GEN) Activity/Diet/Wound Care/Special Instructions: Heart healthy diet activity is restricted till you see your doctor Check your glucose 4 times a day before each meal and at bedtime, keep the results in a log book and bring it to your doctor on your appointment date If you have glucose less than 70 or more than 400 and call 911 and come to emergency room Discharge Disposition: HOME SELF-CARE
== END 2023-04-08 14:28 | disposition home or self-care (01) | DRG 65 ==
LOC: EC 15:55 → 3SCARD 20:32
PROVIDERS: ADMIT Hospitalist; ATTEND Hospitalist
PROC: B24BZZ4 Ultrasonography of Heart with Aorta, Transesophageal (ICD-10-PCS; principal; 2023-04-08 10:00)
DX: I63.81 Other cerebral infarction due to occlusion or stenosis of small artery (principal); G81.91 Hemiplegia, unspecified affecting right dominant side; I11.9 Hypertensive heart disease without heart failure; E11.65 Type 2 diabetes mellitus with hyperglycemia; I08.1 Rheumatic disorders of both mitral and tricuspid valves; E78.5 Hyperlipidemia, unspecified; I25.10 Atherosclerotic heart disease of native coronary artery without angina pectoris; T39.016A Underdosing of aspirin, initial encounter; T38.3X6A Underdosing of insulin and oral hypoglycemic [antidiabetic] drugs, initial encounter; T44.7X6A Underdosing of beta-adrenoreceptor antagonists, initial encounter; T46.6X6A Underdosing of antihyperlipidemic and antiarteriosclerotic drugs, initial encounter; F17.210 Nicotine dependence, cigarettes, uncomplicated; R20.2 Paresthesia of skin; T45.526A Underdosing of antithrombotic drugs, initial encounter; I45.10 Unspecified right bundle-branch block; R00.1 Bradycardia, unspecified; Z91.128 Patient's intentional underdosing of medication regimen for other reason; Z79.899 Other long term (current) drug therapy; Z79.84 Long term (current) use of oral hypoglycemic drugs; Z79.82 Long term (current) use of aspirin; Z79.02 Long term (current) use of antithrombotics/antiplatelets; Z86.73 Personal history of transient ischemic attack (TIA), and cerebral infarction without residual deficits; Z95.1 Presence of aortocoronary bypass graft; Z86.79 Personal history of other diseases of the circulatory system
CPT/HCPCS: 36415; 70450; 70496; 70498; 70551; 71046; 80053; 80061; 82550; 82607; 82746; 83036; 84443; 84484; 85025; 85610; 85730; 93005; 93306; 93312; 93320; 93325; 93880; 94760; 96360; 96361; 99285

== ENCOUNTER 2024-07-05 05:56 | Day surgery (SDC) | payer BC ==
[2024-07-05] MEDS ORDERED: NITROGLYCERIN SL TABS 0.4 MG TAB SUBLINGUAL PRN (06:13)
[2024-07-05] MEDS ORDERED: ALPRAZolam 0.25 MG TAB PO PRN (06:13)
[2024-07-05] MEDS ORDERED: ALPRAZolam 0.5 MG TAB PO PRN (06:13)
[2024-07-05] MEDS: IV FLUID CONTINUATION 1,000 ML IV ONE (06:18)
[2024-07-05 06:40] VITALS: RESP 16; TEMP 98.2
[2024-07-05] MEDS: SODIUM CHLORIDE 0.9% 1,000 ML in EMPTY BAG 1 BAG IV SCH (06:42)
[2024-07-05] MEDS ORDERED: ASPIRIN 325 MG TAB PO ONE (07:00)
[2024-07-05 07:02] LABS: Glucose,Whole Blood 164 mg/dL (70-110)
[2024-07-05] MEDS: HEPARIN SODIUM,PORCINE 10,000 UNIT in SODIUM CHLORIDE 0.9% 1,000 ML IRRIGATION PRN (07:36)
[2024-07-05] MEDS: HEPARIN SODIUM,PORCINE (1 ML) 2,500 UNIT in SODIUM CHLORIDE 0.9% 250 ML IRRIGATION PRN (07:36)
[2024-07-05] MEDS: LIDOCAINE 1% INJ 10MG/ML (20 ML MDV) SQ ONE (08:09)
[2024-07-05] MEDS: MIDAZOLAM 2 MG/2 ML VIAL IVP ONE (08:10)
[2024-07-05] MEDS: fentaNYL (PF) 50 MCG/ML 2 ML AMP IVP ONE (08:10)
[2024-07-05] MEDS: IOPAMIDOL-370 100ML BTL INJ ONE ×2 (08:38→08:39)
[2024-07-05] MEDS ORDERED: RX INFO: IV CONTRAST WAS GIVEN 1 EACH MISC MISCELLANE PRN (09:16)
[2024-07-05] MEDS ORDERED: SODIUM CHLORIDE 0.9% 1,000 ML IV SCH (09:30)
[2024-07-05 17:39] VITALS: BP 133/67
[2024-07-05 17:45] VITALS: PULSE 56
--- NOTE | 2024-07-06 14:49 | CC ---
CARDIAC CATHETERIZATION REPORT INDICATION: Ischemic cardiomyopathy with intermittent episodes of chest discomfort and an abnormal nuclear scan. PROCEDURE NOTE: After obtaining informed consent, left heart catheterization and coronary angiogram were performed via the right femoral artery using standard Becky catheters. The patient tolerated the procedure well without any obvious immediate complications. Received moderate conscious sedation. Total sedation time was 26 minutes. The patient had standard left heart catheterization with aortogram and selective injection of the CAMPBELL and venous graft. A femoral angiogram was performed at the end of the procedure and decision was made for manual hemostasis because he has significant peripheral arterial disease. FINDINGS: 1. Hemodynamics: Left ventricular end-diastolic pressure is 15 to 16 mm. There is no significant gradient across the aortic valve. 2. Left ventriculogram: Left ventriculogram is not performed. 3. Angiographic data: a.Right coronary artery: Right coronary artery is totally occluded in its proximal portion. b. Left main coronary artery is a small vessel. c. The circumflex coronary artery is totally occluded. d.LAD also seen shows a 90% stenosis with competitive flow from the CAMPBELL. e.Aortogram was performed to locate the venous grafts and aorta measures normally and we did not find any venous grafts. SELECTIVE INJECTION OF THE VENOUS GRAFTS: The venous graft to OM appears occluded. We could not locate the venous graft to the right coronary artery. CONCLUSIONS: 1. Severe three-vessel coronary artery disease as described above. 2. Patent CAMPBELL to LAD. 3. Occluded venous graft to circ and PDA. 4. Aortogram was performed to the patent venous grafts. PLAN: I reviewed angiographic data with the patient and his family and the management is going to be in the form of aggressive medical therapy. I will add beta-blockers to what he is on and I will consider adding an SHAW inhibitor down the road. MMODL / IJN: [id number] /
== END 2024-07-05 15:55 | disposition home or self-care (01) ==
LOC: CATHCVL 05:56
PROVIDERS: ATTEND Internal Medicine Cardiovascular Disease
DX: R07.2 Precordial pain
CPT/HCPCS: 93459

== ENCOUNTER → 2025-04-11 | Outpatient (CLI) | payer BC ==
[2025-04-11 15:27] LABS: Glucose 155.0 mg/dL (70-110)
== END | disposition home or self-care (01) ==
LOC: LABWHC1 08:12
PROVIDERS: ATTEND Internal Medicine
DX: R73.9 Hyperglycemia, unspecified (principal)
CPT/HCPCS: 36415; 82947; 84681